=== PATIENT | male | born 1990 | race Caucasian/White ===

== ENCOUNTER 2016-04-27 10:18 | Inpatient (IN) | payer BC ==
[2016-04-27] VITALS (15 sets, daily range): BP systolic 120–160; BP diastolic 76–97; PULSE 86–137; RESP 16–24; TEMP 98.2–98.8; O2SAT 94–99
[~2016-04-27] VITALS: Ht 182.9 cm; Wt 80.5 kg
[2016-04-27 10:28] LABS: MEAN CORPUSCULAR HGB CONC 36.1 % (32.0-36.0)
[2016-04-27] MEDS ORDERED: SODIUM CHLOR 0.9% 1000 ML INJ 1,000 ML IV ONE (10:30)
[2016-04-27] MEDS ORDERED: MORPHINE SULFATE 4 MG/ML INJ IV PUSH ONE (10:30)
[2016-04-27] MEDS ORDERED: ONDANSETRON HCL 4 MG/2 ML VIAL IV PUSH ONE (10:30)
--- NOTE | 2016-04-27 10:33 | PD ---
HPI Chief Complaint: Chest Pain Time Seen by Provider: 10:22 Travel History International Travel<30 days: No Contact w/Intl Traveler<30days: No Traveled to known affect area: No History of Present Illness HPI 26-year-old male complains of nausea vomiting abdominal cramping chest pain and hemoptysis. Patient states that he started having intermittent nausea vomiting for the past 4 days. Patient started having substernal chest pain since last night. Patient states the pain is sharp pain localized to the substernal area. Patient denies any pain radiation. Patient states that the pain is worse with deep inspiration. Patient denies any palpitation diaphoresis. Patient denies any fever chills. Patient states that he has mild intermittent cough with blood-tinged sputum. Patient denies any history of CAD or pulmonary problem. Patient denies history hypertension, diabetes, dyslipidemia. Patient smokes pot occasionally. Patient denies any other illicit drug use or alcohol abuse. Patient denies any recent injury. On a scale of 1-10 the pain is an 8. Patient states that he has occasional abdominal cramping with vomiting. PFSH Past Medical History Medical History: Denies Significant Hx Diminished Hearing: No Tetanus Vaccination: Unknown Influenza Vaccination: No Social History Alcohol Use: Yes Tobacco Use: Yes Substance Use: No Allergies-Medications (Allergen,Severity, Reaction): Coded Allergies: No Known Allergies (Unverified , 04/27/16) Reported Meds & Prescriptions Reported Meds & Active Scripts Active No Active Prescriptions or Reported Medications Review of Systems General / Constitutional: No: Fever Eyes: No: Visual changes HENT: No: Headaches Cardiovascular: Positive: Chest Pain or Discomfort Respiratory: Positive: Cough, Hemoptysis, No: Shortness of Breath Gastrointestinal: No: Abdominal Pain Genitourinary: No: Dysuria Musculoskeletal: No: Pain Skin: No Rash Neurologic: No: Weakness Psychiatric: No: Depression Endocrine: No: Polydipsia Hematologic/Lymphatic: No: Easy Bruising Physical Exam Narrative GENERAL: Well-nourished, well-developed patient. SKIN: Warm and dry. HEAD: Normocephalic. EYES: No scleral icterus. No injection or drainage. NECK: Supple, trachea midline. No JVD or lymphadenopathy. CARDIOVASCULAR: Regular rate and rhythm without murmurs, gallops, or rubs. RESPIRATORY: Breath sounds equal bilaterally. No accessory muscle use. GASTROINTESTINAL: Abdomen soft, nondistended. Patient has mild diffuse tenderness over the abdomen. No rebound tenderness. No mass. MUSCULOSKELETAL: No cyanosis, or edema. BACK: Nontender without obvious deformity. No CVA tenderness. Neurologic exam normal. Data Data Last Documented VS Vital Signs Date Time Temp Pulse Resp B/P Pulse Ox O2 Delivery O2 Flow Rate FiO2 04/27/16 12:30 94 20 124/88 98 Nasal Cannula 2 04/27/16 10:22 98.8 Orders Electrocardiogram (04/27/16 ) Complete Blood Count With Diff (04/27/16 10:22) Comprehensive Metabolic Panel (04/27/16 10:22) Creatine Kinase (Cpk) (04/27/16 10:22) Troponin I (04/27/16 10:22) Prothrombin Time / Inr (Pt) (04/27/16 10:22) Act Partial Throm Time (Ptt) (04/27/16 10:22) Lipase (04/27/16 10:22) Urinalysis - C+S If Indicated (04/27/16 10:22) Alcohol (Ethanol) (04/27/16 10:22) Drug Screen, Random Urine (04/27/16 10:22) Chest, Single Ap (04/27/16 10:22) Iv Access Insert/Monitor (04/27/16 10:22) Ecg Monitoring (04/27/16 10:22) Oxygen Administration (04/27/16 10:22) Oximetry (04/27/16 10:22) Sodium Chlor 0.9% 1000 Ml Inj (Ns 1000 M (04/27/16 10:30) Morphine Inj (Morphine Inj) (04/27/16 10:30) Ondansetron Inj (Zofran Inj) (04/27/16 10:30) Lorazepam Inj (Ativan Inj) (04/27/16 11:15) CKMB (04/27/16 10:30) CKMB% (04/27/16 10:30) D-Dimer (04/27/16 11:35) Ventilation & Perfusion Scan (04/27/16 11:35) Potassium Chlor 20 Meq Premix (Kcl 20 Me (04/27/16 12:15) Ns + Kcl 20 Meq Inj (Ns + Kcl 20 Meq Inj (04/27/16 12:15) Labs Laboratory Tests Test 04/27/16 10:30 White Blood Count 18.9 TH/MM3 Red Blood Count 5.84 MIL/MM3 Hemoglobin 17.0 GM/DL Hematocrit 47.1 % Mean Corpuscular Volume 80.8 FL Mean Corpuscular Hemoglobin 29.2 PG Mean Corpuscular Hemoglobin 36.1 % Concent Red Cell Distribution Width 12.9 % Platelet Count 251 TH/MM3 Mean Platelet Volume 9.7 FL Neutrophils (%) (Auto) 75.0 % Lymphocytes (%) (Auto) 10.3 % Monocytes (%) (Auto) 14.3 % Eosinophils (%) (Auto) 0.0 % Basophils (%) (Auto) 0.4 % Neutrophils # (Auto) 14.2 TH/MM3 Lymphocytes # (Auto) 1.9 TH/MM3 Monocytes # (Auto) 2.7 TH/MM3 Eosinophils # (Auto) 0.0 TH/MM3 Basophils # (Auto) 0.1 TH/MM3 CBC Comment AUTO DIFF Differential Comment AUTO DIFF CONFIRMED Prothrombin Time 11.6 SEC Prothromb Time International 1.0 RATIO Ratio Activated Partial 30.1 SEC Thromboplast Time D-Dimer Quantitative (PE/DVT) 1.57 MG/L FEU Sodium Level 127 MEQ/L Potassium Level 3.0 MEQ/L Chloride Level 85 MEQ/L Carbon Dioxide Level 20.7 MEQ/L Anion Gap 21 MEQ/L Blood Urea Nitrogen 40 MG/DL Creatinine 2.36 MG/DL Estimat Glomerular Filtration 34 ML/MIN Rate Random Glucose 136 MG/DL Calcium Level 9.6 MG/DL Total Bilirubin 2.1 MG/DL Aspartate Amino Transf 33 U/L (AST/SGOT) Alanine Aminotransferase 36 U/L (ALT/SGPT) Alkaline Phosphatase 75 U/L Total Creatine Kinase 455 U/L Creatine Kinase MB 0.9 NG/ML Creatine Kinase MB % 0.2 % Troponin I LESS THAN 0.02 NG/ML Total Protein 9.1 GM/DL Albumin 4.6 GM/DL Lipase 81 U/L Ethyl Alcohol Level LESS THAN 3 MG/DL MDM Medical Decision Making Medical Screen Exam Complete: Yes Emergency Medical Condition: Yes Interpretation(s) 10:32 AM. EKG shows sinus tachycardia rate 138. Nonspecific ST-T wave change. 12:08 PM. Last Impressions Chest X-Ray 04/27/16 1022 Signed Impressions: Service Date/Time: Wednesday, April 27, 2016 10:43 - CONCLUSION: No acute disease. Maico Melendez MD 12 08 PM. CBC WBC 18.9. 75 neutrophil. Sodium 127. Potassium 3.0. Chloride 85. Bicarbonate 20.7. Anion gap 21. BUN 40. Creatinine 2.36. Total bili 2.1. Total CK 455 with normal MB fraction. Troponin normal. Alcohol less than 3. D-dimer 1.57. 1409 PM. VQ scan shows low probability for PE. Differential Diagnosis Differential diagnosis including gastroenteritis, bronchitis, pneumonia, PE, pneumothorax, gastritis, PUD, pancreatitis, cholecystitis, colitis, UTI, pyelonephritis, nephrolithiasis. Narrative Course 26-year-old male with nausea vomiting, chest pain, hemoptysis, tachycardia. Normal saline solution 1 L IV bolus. Morphine 2 mg IV. Zofran 4 g IV. Ativan 1 mg IV. Normal saline solution with 20 mEq KCl per liter at 1 25 cc an hour. KCl 20 mEq IV given. Diagnosis Primary Impression: Chest pain Qualified Code: R07.9 - Chest pain, unspecified type Additional Impressions: Hyponatremia Hypokalemia Renal insufficiency Admitting Information Admitting Physician Requests: Admit Scripts No Active Prescriptions or Reported Meds Андрей Sewnson MD Apr 27, 2016 10:33
[2016-04-27 10:46] LABS: AUTOMATED NEUTROPHIL # 14.2 TH/MM3 (1.8-7.7); BASOPHIL # 0.1 TH/MM3 (0-0.2); BASOPHIL % 0.4 % (0.0-2.0); HEMATOCRIT 47.1 % (39.0-51.0); LYMPH % 10.3 % (9.0-44.0); LYMPHOCYTE # 1.9 TH/MM3 (1.0-4.8); MEAN CELL VOLUME 80.8 FL (80.0-100.0); MEAN CORPUSCULAR HEMOGLOBIN 29.2 PG (27.0-34.0); MONO % 14.3 % (0.0-8.0); PLATELET COUNT 251 TH/MM3 (150-450); RED BLOOD COUNT 5.84 MIL/MM3 (4.50-5.90); RED CELL DISTRIBUTION WIDTH 12.9 % (11.6-17.2); WHITE BLOOD COUNT 18.9 TH/MM3 (4.0-11.0)
[2016-04-27 10:52] LABS: HEMO FLAGS AUTO DIFF
[2016-04-27 11:00] LABS: APTT (PATIENT) 30.1 SEC (24.3-30.1); PROTHROMBIN TIME - PATIENT 11.6 SEC (9.8-11.6)
--- NOTE | 2016-04-27 11:01 | RADRPT ---
EXAM DATE/TIME: 04/27/2016 10:43 [facility] COMPARISON: No previous studies available for comparison. INDICATIONS : Chest pain. MEDICAL HISTORY : None. SURGICAL HISTORY : None. ENCOUNTER: Initial ACUITY: 2 days PAIN SCORE: 10/10 LOCATION: Chest, midline. FINDINGS: A single view of the chest demonstrates the lungs to be symmetrically aerated without evidence of mas s, infiltrate or effusion. The cardiomediastinal contours are unremarkable. Osseous structures are intact. CONCLUSION: No acute disease. Maico Melendez MD on April 27, 2016 at 10:59 Board Certified Radiologist. This report was verified electronically.
[2016-04-27 11:05] LABS: ANION GAP 21 MEQ/L (5-15)
[2016-04-27 11:09] LABS: ALKALINE PHOSPHATASE 75 U/L (45-117); ALT (GPT) 36 U/L (12-78); AST (GOT) 33 U/L (15-37); BICARBONATE 20.7 MEQ/L (21.0-32.0); BLOOD UREA NITROGEN 40 MG/DL (7-18); CHLORIDE 85 MEQ/L (98-107); CREATINE KINASE 455 U/L (39-308); GLOMERULAR FILTRATION RATE 34 ML/MIN (>89); SODIUM (NA) 127 MEQ/L (136-145); TOTAL BILIRUBIN ADULT 2.1 MG/DL (0.2-1.0)
[2016-04-27] MEDS ORDERED: LORazepam 2 MG/ML VIAL IV PUSH ONE (11:15)
[2016-04-27 11:35] LABS: CKMB 0.9 NG/ML (0.5-3.6)
[2016-04-27 12:05] LABS: SCAN/DIFF AUTO DIFF CONFIRMED
[2016-04-27] MEDS ORDERED: POTASSIUM CHLOR 20 MEQ PREMIX 100 ML IV ONE (12:15)
[2016-04-27] MEDS: NS + KCL 20 MEQ INJ 1,000 ML IV SCH ×3 (12:19→23:35)
--- NOTE | 2016-04-27 13:46 | RADRPT ---
EXAM DATE/TIME: 04/27/2016 13:15 [facility] COMPARISON: No previous studies available for comparison. INDICATIONS : Dyspnea with nausea and vomiting and chest pain. DOSE: 8.5 mCi Tc99m MAA IV 1.0 mCi Tc99m DTPA aerosol MEDICAL HISTORY : None SURGICAL HISTORY : None. ENCOUNTER: Initial ACUITY: 1 day PAIN SCALE: 0/10 LOCATION: chest TECHNIQUE: Following five minutes of tidal breathing of DTPA aerosol, planar images of the lungs were performed in eight projections. The patient was then injected with MAA, and eight-view perfusion scan was perf ormed. FINDINGS: There is a homogeneous pattern of aerosol delivery to the periphery of both lungs. No focal ventilat ory defects are seen. The perfusion lung scan demonstrates a homogenous pattern of uptake in both lungs. No segmental or s ubsegmental defects are seen. CONCLUSION: Low probability for pulmonary embolism. aMico Melendez MD on April 27, 2016 at 13:44 Board Certified Radiologist. This report was verified electronically.
[2016-04-27] MEDS ORDERED: SODIUM CHLOR 0.9% 1000 ML INJ 1,000 ML IV SCH (14:54)
--- NOTE | 2016-04-27 14:55 | HHI.HP ---
HPI Service Family Medicine Primary Care Physician No Primary Care Physician Admission Diagnosis chest pain. Electrolyte abnormality. Renal insufficiency. Diagnoses: International Travel<30 Days: No Contact w/Intl Traveler<30days: No Known Affected Area: No History of Present Illness Pt is a 26 year old male with no significant past medical history presenting to the ED due to chest pain. Pt reports that he has had nausea and vomiting for the past 4 days and he has not been able to tolerate anything po for the past 2 days. Vomit is dark in color, he is unsure if it contained any blood. He also reports several episodes of diarrhea. Last night, after vomiting, her began to experience, burning, substernal chest pain, 10/10 in intensity. He reports that pain radiates to the epigastrium, no radiation to his arms or shoulders. Pain is relieved by drinking cold water and made worse by deep inspiration, drinking tea, coughing, vomiting. He continues to have this pain, but less frequently. Pain medication in the ED only partially helped. Pain was associated with shortness of breath which started last night and persisted into this morning. He describes having a difficult time "getting air into his lungs". He reports that he fell down once last night, does not believe he lost consciousness, did not hit his head or sustain any injuries. Of not pt is a poor historian and has a difficult time recalling details associated with his symptoms and becomes easily frustrated with answering questions. He denies sick contacts, recent travel, trauma, insect bites. ( Ayo Collins MD R2) Review of Systems ROS Limitations: Poor Historian Eyes: DENIES: Vision loss Ears, nose, mouth, throat: COMPLAINS OF: Throat pain (from vomiting) Respiratory: COMPLAINS OF: Shortness of breath Cardiovascular: COMPLAINS OF: Chest pain, Palpitations Gastrointestinal: COMPLAINS OF: Abdominal pain, Diarrhea, Nausea, Vomiting, DENIES: Constipation Genitourinary: DENIES: Dysuria Musculoskeletal: DENIES: Back pain, Neck pain Integumentary: DENIES: Rash Neurologic: DENIES: Headache Psychiatric: DENIES: Anxiety, Mood changes (Ayo Collins MD R2) Past Family Social History Past Medical History None Past Surgical History Right knee surgery due to meniscus tear Reported Medications Denies any medications or supplements (Ayo Collins MD R2) Allergies: Coded Allergies: No Known Allergies (Unverified , 04/27/16) Active Ordered Medications Inpatient Medications Acetaminophen (Tylenol) 650 mg Q4H PRN PO TEMP>100.4F,PAIN1-10,IRRITABLE; Start 04/27/16 at 15:00 IV Flush (NS Flush) 2 ml BID FLUSH ; Start 04/27/16 at 21:00 Lorazepam 1 mg 1 mg ONCE ONCE IV PUSH Last administered on 04/27/16 11:11; Start 04/27/16 at 11:15; Stop 04/27/16 at 11:16; Status DC Morphine Sulfate (Morphine Inj) 4 mg Q3H PRN IV PUSH BREAKTHROUGH PAIN; Start 04/27/16 at 15:45 Naloxone HCl (Narcan Inj) 0.4 mg UNSCH PRN IV SEE LABEL COMMENTS; Start at 15:00 Ondansetron HCl (Zofran Inj) 4 mg Q6H PRN IVP NAUSEA OR VOMITING; Start at 15:00 Potassium Chloride/Sodium Chloride 1,000 ml @ 125 mls/hr Q8H IV Last administered on 04/27/16 12:19; Start 04/27/16 at 12:15 Potassium Chloride 100 ml @ 50 mls/hr BOLUS ONCE IV Last administered on 12:19; Start 04/27/16 at 12:15; Stop 04/27/16 at 14:14; Status DC Sodium Chloride (NS 1000 ml Inj) 1,000 ml @ 100 mls/hr Q10H IV Last administered on 04/27/16 15:21; Start 04/27/16 at 14:54 Family History Mother: from a car accident Father: Estranged Siblings: Healthy Social History Currently lives with girl friend Smokes 1 PPD for 5 years Occasional alcohol use Marijuana, unable to specify quantity (Ayo Collins MD R2) Physical Exam Vital Signs Vital Signs Date Time Temp Pulse Resp B/P Pulse Ox O2 Delivery O2 Flow Rate FiO2 04/27/16 14:30 94 18 140/85 97 Room Air 2 04/27/16 14:00 90 17 126/86 98 Nasal Cannula 2 04/27/16 13:00 90 20 160/93 98 Nasal Cannula 2 04/27/16 12:30 94 20 124/88 98 Nasal Cannula 2 04/27/16 12:00 92 17 130/79 97 Nasal Cannula 2 04/27/16 11:30 92 17 135/79 94 Nasal Cannula 2 04/27/16 11:00 102 16 155/86 99 Nasal Cannula 2 04/27/16 10:46 20 04/27/16 10:39 114 20 144/76 98 Nasal Cannula 2 04/27/16 10:26 137 24 98 Nasal Cannula 2 04/27/16 10:22 98.8 137 24 132/85 98 04/27/16 10:20 24 97 Room Air 04/27/16 10:20 97 Nasal Cannula 2 Physical Exam GENERAL: This is a well-nourished, well-developed patient, who appears to be experiencing severe pain. While answering questions he is completely distracted from his pain. SKIN: No rashes, ecchymoses or lesions. Patient with multiple tattoos. No track garcia or splinter hemorrhages. Warm and dry. HEAD: Atraumatic. Normocephalic. No temporal or scalp tenderness. EYES: Pupils equal round and reactive. Extraocular motions intact. No scleral icterus. No injection or drainage. ENT: Nose without bleeding, purulent drainage or septal hematoma. Throat without erythema, tonsillar hypertrophy or exudate. Uvula midline. Airway patent. Poor dentition. NECK: Trachea midline. No JVD or lymphadenopathy. Supple, nontender, no meningeal signs. CARDIOVASCULAR: Tachycardic rate rate and rhythm without murmurs, gallops, or rubs. CHEST: Chest pain is reproduced with palpation of the sternum and epigastric area RESPIRATORY: Clear to auscultation. Breath sounds equal bilaterally. No wheezes , rales, or rhonchi. GASTROINTESTINAL: Abdomen soft, non-tender, nondistended. No hepato-splenomegaly , or palpable masses. No guarding. Hyperactive bowel sounds. MUSCULOSKELETAL: Extremities without clubbing, cyanosis, or edema. No joint tenderness, effusion, or edema noted. No calf tenderness. Negative Homans sign bilaterally. NEUROLOGICAL: Awake and alert. Cranial nerves II through XII intact. Motor and sensory grossly within normal limits. Five out of 5 muscle strength in all muscle groups. Normal speech. Laboratory Laboratory Tests Test 04/27/16 10:30 White Blood Count 18.9 Red Blood Count 5.84 Hemoglobin 17.0 Hematocrit 47.1 Mean Corpuscular Volume 80.8 Mean Corpuscular Hemoglobin 29.2 Mean Corpuscular Hemoglobin 36.1 Concent Red Cell Distribution Width 12.9 Platelet Count 251 Mean Platelet Volume 9.7 Neutrophils (%) (Auto) 75.0 Lymphocytes (%) (Auto) 10.3 Monocytes (%) (Auto) 14.3 Eosinophils (%) (Auto) 0.0 Basophils (%) (Auto) 0.4 Neutrophils # (Auto) 14.2 Lymphocytes # (Auto) 1.9 Monocytes # (Auto) 2.7 Eosinophils # (Auto) 0.0 Basophils # (Auto) 0.1 CBC Comment AUTO DIFF Differential Comment AUTO DIFF CONFIRMED Prothrombin Time 11.6 Prothromb Time International 1.0 Ratio Activated Partial 30.1 Thromboplast Time D-Dimer Quantitative (PE/DVT) 1.57 Sodium Level 127 Potassium Level 3.0 Chloride Level 85 Carbon Dioxide Level 20.7 Anion Gap 21 Blood Urea Nitrogen 40 Creatinine 2.36 Estimat Glomerular Filtration 34 Rate Random Glucose 136 Calcium Level 9.6 Total Bilirubin 2.1 Aspartate Amino Transf 33 (AST/SGOT) Alanine Aminotransferase 36 (ALT/SGPT) Alkaline Phosphatase 75 Total Creatine Kinase 455 Creatine Kinase MB 0.9 Creatine Kinase MB % 0.2 Troponin I LESS THAN 0.02 Total Protein 9.1 Albumin 4.6 Lipase 81 Ethyl Alcohol Level LESS THAN 3 (Ayo Collins MD R2) Result Diagram: 04/27/16 1030 04/27/16 1030 Imaging Last 24 hours Impressions Lung Scan-VQ Nuclear Medicine 04/27/16 1135 Signed Impressions: Service Date/Time: Wednesday, April 27, 2016 13:15 - CONCLUSION: Low probability for pulmonary embolism. Maico Melendez MD Chest X-Ray 04/27/16 1022 Signed Impressions: Service Date/Time: Wednesday, April 27, 2016 10:43 - CONCLUSION: No acute disease. Maico Melendez MD (Ayo Collins MD R2) Assessment and Plan Assessment and Plan Pt is a 26 year old male with no significant past medical history presenting to the ED due to chest pain. Will rule out ACS as well as intoxication vs withdrawal. Code Status Full Discussed Condition With sdw Dr. Mejia (Ayo Collins MD R2) Attending Attestation THIS CASE WAS DISCUSSED WITH THE RESIDENT PHYSICIANS. I HAVE REVIEWED THE RECORD AND AGREE WITH THE ABOVE NOTE AND PLAN OF CARE WAS DISCUSSED. I HAVE AUTHORIZED THE ORDER FOR ADMISSION TO AN IN-PATIENT STATUS. (Izaiah Erazo MD) Problem List: (1) Chest pain Status: Acute Plan: Pt presents with substernal chest pain associated with SOB. Pain began after several days of vomiting and is reproducible on exam. Differnetial includes musculoskeletal pain/costochondritis versus [place] versus arrhythmia versus illicit substance use -Will rule out ACS -Initial troponin less than 0.02, CK-MB 0.9 -EKG showing sinus tachycardia -D-dimer elevated to 1.57 -VQ scan performed due to poor renal function, low probability for pulmonary embolism -Echocardiogram ordered by ED physician -UDS ordered (2) CHIDI (acute kidney injury) Status: Acute Plan: On admission patient with creatinine of 2.36. Denies history of kidney disease. Pt with decreased urine output, likely due to dehydration. Differential includes dehydration vs medication vs illicit substance use vs obstructive process vs others. -Rehydration, see fluids below -Renal US within normal limits, incidental gallbladder sludge noted -UDS ordered -Continue to monitor -Consider nephrology consult if creatinine does not improve with fluid hydration (3) Hyponatremia Status: Acute Plan: Sodium low at 127, likely due to dehydration and poor nutritional status -Replacement fluids with normal saline -Will check ADH -Continue to monitor (4) Hypokalemia Status: Acute Plan: Potassium low at 3.0 -Fluids with KCl, see below -Will recheck in the morning -Consider additional dose of PO potassium if this remains low (5) Leukocytosis Status: Resolved Plan: Patient with elevated white blood cell count of 18.9. No obvious source of infection. Patient has been afebrile. -Chest x-ray shows no acute disease -UA ordered -Continue to monitor for signs of infection (6) FEN/PPX Status: Acute Plan: Fluids: Normal saline with KCl at 125 MLS/HR Electrolytes: See above Nutrition: Regular diet DVT PPX: Heparin 5000 units Q8hrs (Ayo Collins MD R2) Physician Certification 2 Midnight Certification Type: Admission for Inpatient Services Order for Inpatient Services The services are ordered in accordance with Medicare regulations or non- Medicare payer requirements, as applicable. In the case of services not specified as inpatient-only, they are appropriately provided as inpatient services in accordance with the 2-midnight benchmark. Estimated LOS (days): 2 2 days is the estimated time the patient will need to remain in the hospital, assuming treatment plan goals are met and no additional complications. Post-Hospital Plan: Home (Ayo Collins MD R2) Problem Qualifiers (1) Chest pain: Qualified Code: R07.9 - Chest pain, unspecified type Ayo Collins MD R2 Apr 27, 2016 14:55 Izaiah Erazo MD Apr 28, 2016 12:27
[2016-04-27] MEDS ORDERED: SODIUM CHLORIDE 0.9% FLUSH 5 ML FLUSH FLUSH PRN (15:00)
[2016-04-27] MEDS ORDERED: NALOXONE HCL 0.4 MG/ML AMP IV PRN (15:00)
[2016-04-27] MEDS ORDERED: ACETAMINOPHEN 325 MG TAB PO PRN (15:00)
[2016-04-27] MEDS ORDERED: ONDANSETRON HCL 4 MG/2 ML VIAL IVP PRN (15:00)
[2016-04-27] MEDS ORDERED: ALPRAZolam 0.25 MG TAB PO PRN (15:45)
[2016-04-27] MEDS: MORPHINE SULFATE 4 MG/ML INJ IV PUSH PRN ×2 (16:01→21:21)
[2016-04-27] MEDS ORDERED: NICOTINE 14 MG/24 HR PATCH TD ONE (17:30)
[2016-04-27] MEDS: ACETAMINOPHEN/HYDROcodone 325 MG/10 MG TAB PO PRN (17:32)
[2016-04-27 17:34] LABS: CREATINE KINASE 365 U/L (39-308)
--- NOTE | 2016-04-27 18:26 | RADRPT ---
EXAM DATE/TIME: 04/27/2016 17:52 [facility] COMPARISON: No previous studies available for comparison. INDICATIONS : Abnormal labs. MEDICAL HISTORY : Abdominal pain. Sore throat. Dyspnea. SURGICAL HISTORY : Right knee surgery. ENCOUNTER: Initial ACUITY: 3 days PAIN SCORE: 0/10 LOCATION: Bilateral flank MEASUREMENTS: RIGHT KIDNEY: 11.2 x 4.5 x 6.6 cm LEFT KIDNEY: 10.7 x 5.6 x 4.4 cm FINDINGS: RIGHT KIDNEY: Renal cortex is normal in thickness and echotexture. No hydronephrosis, stone, or mass. LEFT KIDNEY: Renal cortex is normal in thickness and echotexture. No hydronephrosis, stone, or mass. BLADDER: Within normal limits given the degree of distension. CONCLUSION: 1. Unremarkable renal ultrasound. Incidental note made of gallbladder sludge. Rubin Aden MD on April 27, 2016 at 18:24 Board Certified Radiologist. This report was verified electronically.
[2016-04-27] MEDS: ACETAMINOPHEN/HYDROcodone 325 MG/5 MG TAB PO PRN ×2 (18:38→23:34)
[2016-04-27] MEDS: SODIUM CHLORIDE 0.9% FLUSH 5 ML FLUSH FLUSH SCH (21:00)
[2016-04-27] MEDS: HEPARIN SODIUM - SQ 10,000 UNITS/ML VIAL SQ SCH (21:24)
[2016-04-27] MEDS ORDERED: cloNIDine HCL 0.1 MG TAB PO PRN (22:00)
[2016-04-28] VITALS (7 sets, daily range): BP systolic 113–136; BP diastolic 63–86; PULSE 76–98; RESP 16–20; TEMP 96.4–98.7; O2SAT 94–100
[2016-04-28 00:03] LABS: BLOOD, URINE NEG (NEG); GLUCOSE,URINE NEG (NEG); KETONE, URINE TRACE mg/dL (NEG); NITRITE,URINE NEG (NEG); SQUAMOUS EPITHELIAL CELL URINE <1 /hpf (0-5); URINE COLOR YELLOW (YELLW/STRAW)
[2016-04-28 00:04] LABS: COMMENT (UR) CULT NOT INDICATED; CULTURE IF INDICATED CULT NOT INDICATED
[2016-04-28 00:08] LABS: CREATINE KINASE 356 U/L (39-308); MAGNESIUM 2.8 MG/DL (1.5-2.5)
[2016-04-28 00:11] LABS: AMPHETAMINE, URINE NEG (NEG); BARBITURATES, URINE NEG (NEG); COCAINE, URINE NEG (NEG)
[2016-04-28] MEDS: MORPHINE SULFATE 4 MG/ML INJ IV PUSH PRN ×6 (03:58→23:52)
[2016-04-28] MEDS: NS + KCL 20 MEQ INJ 1,000 ML IV SCH ×3 (06:15→22:15)
[2016-04-28] MEDS: HEPARIN SODIUM - SQ 10,000 UNITS/ML VIAL SQ SCH ×3 (06:19→20:50)
[2016-04-28] MEDS: ACETAMINOPHEN/HYDROcodone 325 MG/10 MG TAB PO PRN ×5 (06:21→23:35)
[2016-04-28] MEDS: SODIUM CHLORIDE 0.9% FLUSH 5 ML FLUSH FLUSH SCH ×2 (09:00→20:47)
[2016-04-28 09:19] LABS: AUTOMATED NEUTROPHIL # 3.2 TH/MM3 (1.8-7.7); BASOPHIL % 0.3 % (0.0-2.0); EOSINOPHIL # 0.1 TH/MM3 (0-0.4); EOSINOPHIL % 1.2 % (0.0-4.0); HEMATOCRIT 38.4 % (39.0-51.0); HEMO FLAGS DIFF FINAL; LYMPH % 25.8 % (9.0-44.0); LYMPHOCYTE # 1.5 TH/MM3 (1.0-4.8); MEAN CELL VOLUME 83.1 FL (80.0-100.0); MEAN CORPUSCULAR HEMOGLOBIN 29.2 PG (27.0-34.0); MEAN CORPUSCULAR HGB CONC 35.1 % (32.0-36.0); MONO % 18.5 % (0.0-8.0); NEUT % 54.2 % (16.0-70.0); PLATELET COUNT 143 TH/MM3 (150-450); RED BLOOD COUNT 4.63 MIL/MM3 (4.50-5.90)
[2016-04-28 10:10] LABS: POTASSIUM 3.8 MEQ/L (3.5-5.1)
--- NOTE | 2016-04-28 11:50 | EKG ---
Date Performed: 04/27/2016 Time Performed: 16:07:22 PTAGE: 26 years EKG: JUNCTIONAL RHYTHM ABNORMAL RHYTHM ECG PREVIOUS TRACING : 04/27/2016 10.24 DOCTOR: Ramon Jacobson Interpretating Date/Time 04/28/2016 11:46:07
[2016-04-28] MEDS: PANTOPRAZOLE SODIUM 40 MG VIAL IV PUSH SCH (11:52)
--- NOTE | 2016-04-28 11:54 | EKG ---
Date Performed: 04/27/2016 Time Performed: 10:24:04 PTAGE: 26 years EKG: SINUS TACHYCARDIA MODERATE ST DEPRESSION ABNORMAL ECG INTERPRETATION BASED ON A DEFAULT AGE OF 41 YEARS NO PREVIOUS TRACING DOCTOR: Ramon Jacobson Interpretating Date/Time 04/28/2016 11:48:56
[2016-04-28] MEDS ORDERED: PROMETHAZINE HCL 25 MG SUPP PR PRN (12:00)
--- NOTE | 2016-04-28 12:27 | HHI.FPPN ---
Subjective Remarks Patient does not feel any better this morning. Continues to have significant amount of dry heaves/emesis as well as substernal chest discomfort. He has been getting Zofran throughout the night without any improvement in his nausea. He has been unable to hold down any liquids or food for longer than 1 hour before throwing up. He has not noticed any blood in his emesis. He denies any fevers or chills. He denies any palpitations. He denies any shortness of breath. He has been urinating and describes it as "dark yellow". Has not had a bowel movement yet in the hospital. In discussion with patient this morning, we tried to elucidate any other substance use and he does endorse daily use of marijuana since the age of 17 In summary this is a 26-year-old male with no past medical history presenting to the emergency department with 4 days of intractable nausea/vomiting and chest pain. He states that he has not been able to tolerate anything by mouth including liquids for the last 2 days. He describes his vomiting is dark in color but has not noticed any overt blood in his emesis. He began experiencing anterior chest discomfort that he describes as substernal and burning worse with retching and emesis. He denies any fevers or chills, he denies any palpitations, denies any significant shortness of breath. He denies any recent illnesses. Past Medical History None Past Surgical History Right knee surgery due to meniscus tear Reported Medications Denies any medications or supplements Family History Mother: from a car accident Father: Estranged Siblings: Healthy Social History Currently lives with girl friend Smokes 1 PPD for 5 years Occasional alcohol use Marijuana, unable to specify quantity Objective Vitals Vital Signs Date Time Temp Pulse Resp B/P Pulse Ox O2 Delivery O2 Flow Rate FiO2 04/28/16 07:25 96.6 83 20 119/68 97 04/28/16 07:20 18 04/28/16 04:05 18 04/28/16 04:00 97.1 84 18 125/79 100 04/28/16 00:34 18 04/28/16 00:00 96.4 82 16 113/63 94 04/27/16 21:26 18 04/27/16 21:00 98.2 98 18 126/83 99 04/27/16 18:27 101 18 134/88 98 Nasal Cannula 2 04/27/16 17:00 98 16 134/97 98 Nasal Cannula 2 04/27/16 16:00 92 16 120/80 98 Nasal Cannula 2 04/27/16 15:00 86 17 133/87 98 Nasal Cannula 04/27/16 14:30 94 18 140/85 97 Room Air 2 04/27/16 14:00 90 17 126/86 98 Nasal Cannula 2 04/27/16 13:00 90 20 160/93 98 Nasal Cannula 2 04/27/16 12:30 94 20 124/88 98 Nasal Cannula 2 I/O 04/27/16 04/27/16 04/27/16 04/28/16 04/28/16 04/28/16 07:00 15:00 23:00 07:00 15:00 23:00 Intake Total 1922 ml Output Total 1100 ml Balance 822 ml Intake Oral 480 ml IV Total 1442 ml Output Urine Total 1100 ml Result Diagram: 04/28/16 0902 04/28/16 0902 Imaging Last 48 hours Impressions Lung Scan- Nuclear Medicine 04/27/16 1135 Signed Impressions: Service Date/Time: Wednesday, April 27, 2016 13:15 - CONCLUSION: Low probability for pulmonary embolism. Maico Melendez MD Chest X-Ray 04/27/16 1022 Signed Impressions: Service Date/Time: Wednesday, April 27, 2016 10:43 - CONCLUSION: No acute disease. Maico Melendez MD Renal Ultrasound 04/27/16 0000 Signed Impressions: Service Date/Time: Wednesday, April 27, 2016 17:52 - CONCLUSION: 1. Unremarkable renal ultrasound. Incidental note made of gallbladder sludge. Rubin Aden MD Objective Remarks GENERAL: Healthy-appearing male, lying in bed. Dry heaves/retching multiple times during the interview SKIN: No rashes, ecchymoses or lesions. Patient with multiple tattoos. No track garcia or splinter hemorrhages. Warm and dry. EYES: Pupils equal round and reactive. No scleral icterus. No injection or drainage. CARDIOVASCULAR: Regular rate and rhythm without murmurs, gallops, or rubs. CHEST: Chest pain is reproduced with palpation of the anterior chest wall bilateral to the sternal RESPIRATORY: Clear to auscultation. Breath sounds equal bilaterally. No wheezes , rales, or rhonchi. GASTROINTESTINAL: Abdomen soft, non-tender, nondistended. No hepato-splenomegaly , or palpable masses. No guarding. Hyperactive bowel sounds. MUSCULOSKELETAL: Extremities without clubbing, cyanosis, or edema. NEUROLOGICAL: Awake and alert. Normal speech. Patient somewhat emotional during discussion A/P Assessment and Plan Pt is a 26 year old male with no significant past medical history presenting to the ED due to chest pain. Will rule out ACS as well as intoxication vs withdrawal. Problem List: (1) Intractable vomiting with nausea Status: Acute Plan: Cyclical vomiting versus cannabis hyperemesis versus peptic/duodenal ulcer Nausea treatment with Zofran 4 mg IV every 6 hours as needed for nausea Phenergan 25 mg rectal suppository added today PPI treatment with Protonix IV GI cocktail (2) Chest pain Status: Acute Plan: Substernal chest pain likely secondary to intractable vomiting Protonix 40 mg IV every 24 Morphine 2 mg IV every 3 hours as needed for pain IV fluids with normal saline at 125 mL/hour GI cocktail to relieve pain ACS rule out was performed and was negative - Troponins negative 3 with normal CK-MB - EKGs with no acute changes Chest x-ray performed and no acute cardiopulmonary findings D-dimer performed and was elevated at 1.57, subsequent VQ scan low probability for PE Pt presents with substernal chest pain associated with SOB. Pain began after several days of vomiting and is reproducible on exam. Differnetial includes musculoskeletal pain/costochondritis versus VT versus arrhythmia versus illicit substance use -Will rule out ACS -Initial troponin less than 0.02, CK-MB 0.9 -EKG showing sinus tachycardia -D-dimer elevated to 1.57 -VQ scan performed due to poor renal function, low probability for pulmonary embolism -Echocardiogram ordered by ED physician -UDS ordered (3) CHIDI (acute kidney injury) Status: Acute Plan: Secondary to dehydration and intractable vomiting Creatinine improving with IV fluids - Continue to monitor with labs, creatinine 2.36 - 1.31 Continue IV fluids with saline at 125 mL/hour Treat nausea as above Renal ultrasound within normal limits Urine drug screen pending (4) Hyponatremia Status: Acute Plan: Sodium corrected with IV fluids, 127 on arrival and now 137 -Will check ADH - pending -Continue to monitor (5) Hypokalemia Status: Acute Plan: Potassium low at 3.0 on arrival likely secondary to dehydration, repeat potassium 3.8 -Fluids with KCl - Monitor potassium daily and replete as needed (6) Leukocytosis Status: Resolved Plan: Likely related to stress Patient with elevated white blood cell count of 18.9 on arrival, normalized 6.0 today. No obvious source of infection. Patient has been afebrile. -Chest x-ray shows no acute disease -UA negative -Continue to monitor for signs of infection (7) FEN/PPX Status: Acute Plan: Fluids: Normal saline with KCl at 125 MLS/HR Electrolytes: See above Nutrition: Regular diet DVT PPX: Heparin 5000 units Q8hrs Problem Qualifiers (1) Chest pain: Qualified Code: R07.9 - Chest pain, unspecified type Izaiah Erazo MD Apr 28, 2016 12:27
--- NOTE | 2016-04-28 19:04 | EC ---
Study Study Date:04/28/2016 STUDY CONCLUSIONS SUMMARY LEFT VENTRICLE: The cavity size was normal. Wall thickness was normal. Systolic function was normal. The estimated ejection fraction was 50%, in the range of 50% to 55%. Wall motion was normal; there were no regional wall motion abnormalities. If LV function is below 40, please consider prescribing an ACEI or ARB or document rationale for non-use. PROCEDURE DATA STUDY STATUS: Elective. Procedure: Transthoracic echocardiography. Image quality was good. Scanning was performed from the parasternal, apical, and subcostal acoustic windows. Study completion: The patient tolerated the procedure well. Transthoracic echocardiography. M-mode, complete 2D, complete spectral Doppler, and color Doppler. Patient status: Inpatient. CARDIAC ANATOMY LEFT VENTRICLE: The cavity size was normal. Wall thickness was normal. Systolic function was normal. The estimated ejection fraction was 50%, in the range of 50% to 55%. Wall motion was normal; there were no regional wall motion abnormalities. AORTIC VALVE: Trileaflet; normal thickness leaflets. Doppler: Transvalvular velocity was within the normal range. There was no stenosis. No regurgitation. AORTA: Aortic root: The aortic root was normal in size. MITRAL VALVE: Structurally normal valve. Doppler: Transvalvular velocity was within the normal range. There was no evidence for stenosis. No regurgitation. Peak gradient: 2mm Hg (D). LEFT ATRIUM: The atrium was normal in size. RIGHT VENTRICLE: The cavity size was normal. Wall thickness was normal. PULMONIC VALVE: Doppler: Transvalvular velocity was within the normal range. There was no evidence for stenosis. Trace regurgitation. TRICUSPID VALVE: Structurally normal valve. Doppler: Transvalvular velocity was within the normal range. Trace regurgitation. PULMONARY ARTERY: The main pulmonary artery was normal-sized. Systolic pressure was within the normal range. RIGHT ATRIUM: The atrium was normal in size. PERICARDIUM: There was no pericardial effusion. SYSTEMIC VEINS: Inferior vena cava: The vessel was normal in size. BASIC MEASUREMENTS ADULT Normal Left ventricle LV internal dimension, ED, chordal level, *52.1 mm 43-52 PLAX LV internal dimension, ES, chordal level, *41 mm 23-38 PLAX Fractional shortening, chordal level, PLAX *21 % >29 LV posterior wall thickness, ED 7.35 mm IVS/LVPW ratio, ED 1.09 <1.3 Ventricular septum Septal thickness, ED 8.02 mm Aortic valve Leaflet separation 24 mm 15-26 Right ventricle RV internal dimension, ED, PLAX 25.6 mm 19-38 BASIC MEASUREMENTS ADULT Normal Aortic valve Leaflet separation 24 mm 15-26 Aorta Root diameter, ED 34 mm 20-37 Left atrium Anterior-posterior dimension, ES 36 mm 19-40 LA/aortic root ratio 1.06 DOPPLER MEASUREMENTS ADULT Normal Main pulmonary artery Pressure, S 26 mm Hg =30 Mitral valve Peak E-wave velocity 76.5 cm/s Peak A-wave velocity 42.9 cm/s Peak gradient, D 2 mm Hg Peak E/A ratio 1.8 Tricuspid valve Regurgitant peak velocity 184 cm/s Peak RV-RA gradient, S 14 mm Hg Maximal regurgitant velocity 184 cm/s Systemic veins Estimated CVP 5 mm Hg Right ventricle RV pressure, S 26 mm Hg <30 LEGEND: Mean values are shown as u=mean value. Asterisk (*) garcia values outside specified normal range. Prepared and signed by Kenji Zhao [id number]
[2016-04-28] MEDS: SODIUM BICARBONATE 650 MG TAB PO SCH (20:48)
[2016-04-28] MEDS: LIDOCAINE VISCOUS 2% SOLN 15 ML UDC PO PRN (20:50)
[2016-04-28] MEDS: ALUMINUM/MAGNESIUM/SIMETH 30 ML CUP PO PRN (20:50)
[2016-04-28] MEDS: ATROPINE/SCOPOLAM/HYOSCYAM/PB ELIXIR 10 ML CUP PO PRN (20:51)
[2016-04-29] MEDS: MORPHINE SULFATE 4 MG/ML INJ IV PUSH PRN ×3 (03:06→10:38)
[2016-04-29] MEDS: ACETAMINOPHEN/HYDROcodone 325 MG/10 MG TAB PO PRN ×3 (03:28→12:27)
[2016-04-29 04:00] VITALS: BP 111/57; PULSE 82; RESP 17; TEMP 97; O2SAT 96
[2016-04-29] MEDS: NS + KCL 20 MEQ INJ 1,000 ML IV SCH ×2 (04:43→12:30)
[2016-04-29] MEDS: HEPARIN SODIUM - SQ 10,000 UNITS/ML VIAL SQ SCH ×3 (04:43→20:11)
[2016-04-29 07:20] LABS: HEMATOCRIT 39.4 % (39.0-51.0); MEAN CELL VOLUME 82.8 FL (80.0-100.0); MEAN CORPUSCULAR HEMOGLOBIN 28.9 PG (27.0-34.0); MEAN CORPUSCULAR HGB CONC 34.9 % (32.0-36.0); PLATELET COUNT 154 TH/MM3 (150-450); RED BLOOD COUNT 4.75 MIL/MM3 (4.50-5.90); RED CELL DISTRIBUTION WIDTH 12.9 % (11.6-17.2); REVIEW FLAG FINAL; WHITE BLOOD COUNT 6.3 TH/MM3 (4.0-11.0)
[2016-04-29 08:00] VITALS: BP 119/86; PULSE 98; RESP 16; TEMP 97; O2SAT 98
[2016-04-29 08:18] LABS: BICARBONATE 27.5 MEQ/L (21.0-32.0); POTASSIUM 3.6 MEQ/L (3.5-5.1)
[2016-04-29] MEDS: SODIUM CHLORIDE 0.9% FLUSH 5 ML FLUSH FLUSH SCH ×2 (09:00→20:11)
--- NOTE | 2016-04-29 09:07 | HHI.FPPN ---
Subjective Remarks Pt seen and examined this morning. No acute events overnight. Pt reports that he is feeling less nauseated and the GI cocktail has been helping. 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 He continues to have have pain in his chest and upper abdomen. (Ayo Collins MD R2) Objective Vitals Vital Signs Date Time Temp Pulse Resp B/P Pulse Ox O2 Delivery O2 Flow Rate FiO2 04/29/16 04:00 97.0 82 17 111/57 96 04/28/16 23:30 97.7 76 16 114/77 96 04/28/16 20:00 98.7 98 18 130/74 96 04/28/16 15:00 97.4 82 20 125/67 96 04/28/16 11:50 96.7 83 20 136/86 98 I/O 04/28/16 04/28/16 04/28/16 04/29/16 04/29/16 04/29/16 06:59 14:59 22:59 06:59 14:59 22:59 Intake Total 1922 ml 120 ml 240 ml 480 ml Output Total 1100 ml 0 ml Balance 822 ml 120 ml 240 ml 480 ml Intake Oral 480 ml 120 ml 240 ml 480 ml IV Total 1442 ml Output Urine Total 1100 ml Stool Total 0 ml # Voids 1 1 2 (Ayo Collins MD R2) Result Diagram: 04/29/1659 04/29/16 0659 Objective Remarks GENERAL: Healthy-appearing male, lying in bed. SKIN: No rashes, ecchymoses or lesions. Patient with multiple tattoos. No track garcia or splinter hemorrhages. Warm and dry. EYES: Pupils equal round and reactive. No scleral icterus. No injection or drainage. CARDIOVASCULAR: Regular rate and rhythm without murmurs, gallops, or rubs. CHEST: Chest pain is reproduced with palpation of the anterior chest wall bilateral to the sternal RESPIRATORY: Clear to auscultation. Breath sounds equal bilaterally. No wheezes , rales, or rhonchi. GASTROINTESTINAL: Abdomen soft, non-tender, nondistended. No hepato-splenomegaly , or palpable masses. No guarding. Hyperactive bowel sounds. MUSCULOSKELETAL: Extremities without clubbing, cyanosis, or edema. NEUROLOGICAL: Awake and alert. Normal speech. Patient somewhat emotional during discussion (Ayo Collins MD R2) A/P Assessment and Plan Pt is a 26 year old male with no significant past medical history presenting to the ED due to chest pain. Will rule out ACS as well as intoxication vs withdrawal. Discharge Planning Anticipate discharge once patient is able to tolerate PO diet. Likely later today wdw Dr. Erazo (Ayo Collins MD R2) Attending Attestation Patient examined and case discussed with resident physician I have read the above note and agree with the assessment/plan as discussed with me I was involved in all medical decision making for this patient Izaiah Erazo M.D. (Izaiah Erazo MD) Problem List: (1) Intractable vomiting with nausea Status: Acute Plan: Cyclical vomiting versus cannabis hyperemesis versus peptic/duodenal ulcer Nausea treatment with Zofran 4 mg IV every 6 hours as needed for nausea Phenergan 25 mg rectal suppository x1 Protonix 40 mg IV Q24hrs GI cocktail: 30 mL's Mylanta, 10 mL's 2% viscous lidocaine, 10 mL's (2) Chest pain Status: Acute Plan: Substernal chest pain likely secondary to intractable vomiting Protonix 40 mg IV every 24 Morphine 2 mg IV every 3 hours as needed for pain IV fluids with normal saline at 125 mL/hour GI cocktail to relieve pain ACS rule out was performed and was negative - Troponins negative 3 with normal CK-MB - EKGs with no acute changes Chest x-ray performed and no acute cardiopulmonary findings D-dimer performed and was elevated at 1.57, subsequent VQ scan low probability for PE Pt presents with substernal chest pain associated with SOB. Pain began after several days of vomiting and is reproducible on exam. Differnetial includes musculoskeletal pain/costochondritis versus MS versus arrhythmia versus illicit substance use -Will rule out ACS -Initial troponin less than 0.02, CK-MB 0.9 -EKG showing sinus tachycardia -D-dimer elevated to 1.57 -VQ scan performed due to poor renal function, low probability for pulmonary embolism -Echocardiogram ordered by ED physician -UDS ordered (3) CHIDI (acute kidney injury) Status: Acute Plan: Resolved Creatinine improving with IV fluids - Continue to monitor with labs, creatinine 2.36 - 1.31- 1.12 See nausea and vomiting above Renal ultrasound within normal limits Urine drug screen positive for cannabinoids (4) Hyponatremia Status: Acute Plan: Sodium corrected with IV fluids, 127 on arrival and now 138 -Will check ADH - pending -Continue to monitor (5) Hypokalemia Status: Acute Plan: Potassium low at 3.0 on arrival likely secondary to dehydration, repeat potassium 3.8 -Fluids with KCl - Monitor potassium daily and replete as needed (6) Leukocytosis Status: Resolved Plan: Likely related to stress Patient with elevated white blood cell count of 18.9 on arrival, normalized, 6.3 today. No obvious source of infection. Patient has been afebrile. -Chest x-ray shows no acute disease -UA negative -Continue to monitor for signs of infection (7) FEN/PPX Status: Acute Plan: Fluids: Normal saline with KCl at 125 MLS/HR Electrolytes: See above Nutrition: Regular diet DVT PPX: Heparin 5000 units Q8hrs (Ayo Collins MD R2) Problem Qualifiers (1) Chest pain: Qualified Code: R07.9 - Chest pain, unspecified type Ayo Collins MD R2 Apr 29, 2016 09:06 Izaiah Erazo MD Apr 29, 2016 16:57
[2016-04-29] MEDS: LIDOCAINE VISCOUS 2% SOLN 15 ML UDC PO PRN ×2 (09:22→20:08)
[2016-04-29] MEDS: ATROPINE/SCOPOLAM/HYOSCYAM/PB ELIXIR 10 ML CUP PO PRN ×2 (09:22→20:07)
[2016-04-29] MEDS: ALUMINUM/MAGNESIUM/SIMETH 30 ML CUP PO PRN ×2 (09:22→20:07)
[2016-04-29] MEDS: SODIUM BICARBONATE 650 MG TAB PO SCH ×2 (09:22→20:07)
[2016-04-29] MEDS: PANTOPRAZOLE SODIUM 40 MG VIAL IV PUSH SCH (10:37)
[2016-04-29 12:00] VITALS: BP 144/96; PULSE 80; RESP 16; TEMP 98.3; O2SAT 99
[2016-04-29] MEDS ORDERED: KETOROLAC TROMETHAMINE 60 MG/2 ML (IM) VIAL IM PRN (15:15)
[2016-04-29 16:00] VITALS: BP 140/89; PULSE 75; RESP 16; TEMP 98; O2SAT 98
[2016-04-29] MEDS ORDERED: PROT40TA PO (16:48)
[2016-04-29] MEDS ORDERED: ZOFR4TAB PO (16:48)
[2016-04-29] MEDS ORDERED: LIDO1SOL8 PO (16:48)
[2016-04-29] MEDS ORDERED: KETO10 PO (16:48)
[2016-04-29] MEDS ORDERED: GI COCKTAIL PO (16:48)
--- NOTE | 2016-04-29 16:49 | HHI.DCPOC ---
Discharge Care Plan Diagnosis: (1) Renal insufficiency (2) Hypokalemia (3) Hyponatremia (4) Chest pain (5) CHIDI (acute kidney injury) (6) Leukocytosis (7) Intractable vomiting with nausea (8) Cannabinoid hyperemesis syndrome Goals to Promote Your Health * To prevent worsening of your condition and complications * To maintain your health at the optimal level Directions to Meet Your Goals Take your medications as prescribed Follow your dietary instruction Follow activity as directed Keep your appointments as scheduled Take your immunizations and boosters as scheduled If your symptoms worsen call your PCP, if no PCP go to Urgent Care Center or Emergency Room Smoking is Dangerous to Your Health. Avoid second hand smoke Call the 24-hour hour crisis hotline for domestic abuse at Ayo Collins MD R2 Apr 29, 2016 16:49
[2016-04-29] MEDS ORDERED: KETOROLAC TROMETHAMINE 10 MG TAB PO PRN (18:15)
[2016-04-29 20:00] VITALS: BP 130/76; PULSE 79; RESP 18; TEMP 98.7; O2SAT 98
[2016-04-30] VITALS: BP 130/80; PULSE 69; RESP 17; TEMP 98; O2SAT 96
[2016-04-30 04:00] VITALS: BP 149/80; PULSE 59; RESP 18; TEMP 97.7; O2SAT 97
[2016-04-30] MEDS: HEPARIN SODIUM - SQ 10,000 UNITS/ML VIAL SQ SCH ×2 (05:48→12:08)
[2016-04-30 08:00] VITALS: BP 118/78; PULSE 76; RESP 16; TEMP 97.2; O2SAT 98
[2016-04-30 08:39] LABS: HEMATOCRIT 41.5 % (39.0-51.0); MEAN CELL VOLUME 82.3 FL (80.0-100.0); MEAN CORPUSCULAR HEMOGLOBIN 29.4 PG (27.0-34.0); MEAN CORPUSCULAR HGB CONC 35.7 % (32.0-36.0); PLATELET COUNT 168 TH/MM3 (150-450); RED BLOOD COUNT 5.04 MIL/MM3 (4.50-5.90); RED CELL DISTRIBUTION WIDTH 13.2 % (11.6-17.2); REVIEW FLAG FINAL; WHITE BLOOD COUNT 5.7 TH/MM3 (4.0-11.0)
[2016-04-30 08:54] LABS: BICARBONATE 26.3 MEQ/L (21.0-32.0); POTASSIUM 3.7 MEQ/L (3.5-5.1)
--- NOTE | 2016-04-30 08:56 | HHI.FPPN ---
Subjective Remarks No acute events overnight. Afebrile vital signs stable overnight. Patient reports he is feeling better. He reports that his chest pain is mediocre, bearable, and that the pain depends on what he's eating. Patient reports that his stomach still gets tight with eating. He denies any diarrhea, vomiting. Patient reports that he held down dinner from last night without vomiting. Patient reports that he is holding liquids down without vomiting. Patient endorses good urine output. Patient feels comfortable going home today. (Luis F Mejia MD R1) Objective Vitals Vital Signs Date Time Temp Pulse Resp B/P Pulse Ox O2 Delivery O2 Flow Rate FiO2 04/30/16 08:00 97.2 76 16 118/78 98 04/30/16 04:00 97.7 59 18 149/80 97 04/30/16 00:00 98.0 69 17 130/80 96 04/29/16 20:00 98.7 79 18 130/76 98 04/29/16 16:00 98.0 75 16 140/89 98 04/29/16 12:00 98.3 80 16 144/96 99 I/O 04/29/16 04/29/16 04/29/16 04/30/16 04/30/16 04/30/16 07:00 15:00 23:00 07:00 15:00 23:00 Intake Total 480 ml 960 ml 480 ml 700 ml Balance 480 ml 960 ml 480 ml 700 ml Intake Oral 480 ml 960 ml 480 ml 700 ml # Voids 2 5 2 2 # Bowel Movements 0 (Luis F Mejia MD R1) Result Diagram: 04/29/1659 04/29/1659 Objective Remarks GENERAL: Healthy-appearing male, lying in bed, still uncomfortable but much improved. SKIN: No rashes, ecchymoses or lesions. Patient with multiple tattoos on upper extremity is bilaterally. No track garcia or splinter hemorrhages. Warm and dry. EYES: Pupils equal round and reactive. No scleral icterus. No injection or drainage. CARDIOVASCULAR: Regular rate and rhythm without murmurs, gallops, or rubs. CHEST: Chest pain is reproduced with palpation of the anterior chest wall lateral to the sternum RESPIRATORY: Clear to auscultation. Breath sounds equal bilaterally. No wheezes , rales, or rhonchi. GASTROINTESTINAL: Hypoactive bowel sounds. Abdomen soft, non-tender, nondistended. No guarding. MUSCULOSKELETAL: Extremities without clubbing, cyanosis, or edema. NEUROLOGICAL: Awake and alert. Normal speech. (Luis F Mejia MD R1) A/P Assessment and Plan Pt is a 26 year old male with no significant past medical history presenting to the ED due to chest pain. Will rule out ACS as well as intoxication vs withdrawal. Differential diagnosis includes gastroenteritis versus food poisoning versus cannabinoid hyperemesis syndrome versus cyclic vomiting syndrome versus abdominal migraine versus peptic/duodenal ulcer. Discharge Planning Anticipate discharge once patient is able to tolerate PO diet. Patient able to tolerate by mouth diet today. Anticipate discharge today. octaviano Erazo (Luis F Mejia MD R1) Attending Attestation Pt. examined and cased discussed with resident physician I have read the above note and agree with the assessment/plan as discussed with me I was involved in all medical decision making for this patient Izaiah Erazo MD (Izaiah Erazo MD) Problem List: (1) Intractable vomiting with nausea Status: Acute Plan: Cyclical vomiting versus cannabis hyperemesis versus peptic/duodenal ulcer. Patient reports that his pain seems to resolve while in the hot shower, and return when he gets out of the shower, which is consistent with cannabinoid hyperemesis syndrome. Nausea treatment with Zofran 4 mg IV every 6 hours as needed for nausea. We will discharge patient with by mouth form of this medication. Phenergan 25 mg rectal suppository x1 Protonix 40 mg IV Q24hrs. We will discharge patient with by mouth form this medication. GI cocktail: 30 mL's Mylanta, 10 mL's 2% viscous lidocaine, 10 mL's . We 'll discharge patient with this medication. (2) Chest pain Status: Acute Plan: Substernal chest pain likely secondary to intractable vomiting. Tenderness to palpation of the chest mcelroy consistent with musculoskeletal etiology of this chest pain. Medications: Protonix 40 mg IV every 24. We'll discharge patient with piriformis medication. Morphine 2 mg IV every 3 hours as needed for pain. We'll discharge patient with ketorolac 10 mg by mouth every 6 hours when necessary for pain. IV fluids with normal saline at 125 mL/hour. Patient now tolerating by mouth, no longer needing IV fluids. GI cocktail to relieve pain. We'll discharge patient with this medication. Workup thus far: Pt presented with substernal chest pain associated with SOB. Pain began after several days of vomiting and is reproducible on exam. Differential includes musculoskeletal pain/costochondritis versus [place] versus arrhythmia versus illicit substance use -Will rule out ACS -Initial troponin less than 0.02, CK-MB 0.9, Troponins negative 3 with normal CK-MB -EKG showing sinus tachycardia, EKGs show no acute changes -Chest x-ray performed and no acute cardiopulmonary findings -D-dimer elevated to 1.57 -VQ scan performed due to poor renal function, low probability for pulmonary embolism -Echocardiogram ordered by ED physician -UDS ordered (3) CHIDI (acute kidney injury) Status: Acute Plan: Resolved Creatinine improving with IV fluids. Discontinue IV fluids today upon discharge. - Continue to monitor with labs, creatinine 2.36 - 1.31- 1.12 - 0.98 today See nausea and vomiting above Renal ultrasound within normal limits Urine drug screen positive for cannabinoids (4) Hyponatremia Status: Acute Plan: Sodium corrected with IV fluids, 127 on arrival and now 137 -Will check ADH - pending -Continue to monitor (5) Hypokalemia Status: Acute Plan: Potassium low at 3.0 on arrival likely secondary to dehydration, repeat potassium 3.7 today - Fluids with KCl can be discontinued today upon discharge - Monitor potassium daily and replete as needed (6) Leukocytosis Status: Resolved Plan: Likely related to stress Patient with elevated white blood cell count of 18.9 on arrival, normalized, 5.7 today. No obvious source of infection. Patient has been afebrile. -Chest x-ray shows no acute disease -UA negative -Continue to monitor for signs of infection (7) FEN/PPX Status: Acute Plan: Fluids: Normal saline with KCl at 125 MLS/HR discontinued today with discharge Electrolytes: See above Nutrition: Regular diet DVT PPX: Heparin 5000 units Q8hrs (Luis F Mejia MD R1) Problem Qualifiers (1) Chest pain: Qualified Code: R07.9 - Chest pain, unspecified type Luis F Mejia MD R1 Apr 30, 2016 08:56 Izaiah Erazo MD Apr 30, 2016 20:23
[2016-04-30] MEDS: SODIUM BICARBONATE 650 MG TAB PO SCH (10:44)
[2016-04-30] MEDS: SODIUM CHLORIDE 0.9% FLUSH 5 ML FLUSH FLUSH SCH (10:46)
[2016-04-30] MEDS: PANTOPRAZOLE SODIUM 40 MG VIAL IV PUSH SCH (11:00)
[2016-04-30 12:00] VITALS: PULSE 78; TEMP 98.3; O2SAT 99
[2016-05-01 08:37] LABS: BATH SALTS (MDPV) UR NEG (NEG); ECSTASY (MDMA) UR NEG (NEG); HEROIN (6-ACETYLMORPHINE) UR NEG (NEG); K2 SPICE UR NEG (NEG); OBMETHADONE UR NEG (NEG); OXYCODONE (PERCODAN) NEG (NEG); PHENCYCLIDINE URINE NEG (NEG)
--- NOTE | 2016-06-09 15:32 | HHI.DS ---
Discharge Summary Admission Date Apr 27, 2016 at 16:41 Admitting Diagnosis chest pain. Electrolyte abnormality. Renal insufficiency. (1) Intractable vomiting with nausea Diagnosis: Principal Plan: Cyclical vomiting versus cannabis hyperemesis versus peptic/duodenal ulcer. Patient reports that his pain seems to resolve while in the hot shower, and return when he gets out of the shower, which is consistent with cannabinoid hyperemesis syndrome. Nausea treatment with Zofran 4 mg IV every 6 hours as needed for nausea. We will discharge patient with by mouth form of this medication. Phenergan 25 mg rectal suppository x1 Protonix 40 mg IV Q24hrs. We will discharge patient with by mouth form this medication. GI cocktail: 30 mL's Mylanta, 10 mL's 2% viscous lidocaine, 10 mL's . We 'll discharge patient with this medication. (2) Chest pain Diagnosis: Principal Plan: Substernal chest pain likely secondary to intractable vomiting. Tenderness to palpation of the chest mcelroy consistent with musculoskeletal etiology of this chest pain. Medications: Protonix 40 mg IV every 24. We'll discharge patient with piriformis medication. Morphine 2 mg IV every 3 hours as needed for pain. We'll discharge patient with ketorolac 10 mg by mouth every 6 hours when necessary for pain. IV fluids with normal saline at 125 mL/hour. Patient now tolerating by mouth, no longer needing IV fluids. GI cocktail to relieve pain. We'll discharge patient with this medication. Workup thus far: Pt presented with substernal chest pain associated with SOB. Pain began after several days of vomiting and is reproducible on exam. Differential includes musculoskeletal pain/costochondritis versus OR versus arrhythmia versus illicit substance use -Will rule out ACS -Initial troponin less than 0.02, CK-MB 0.9, Troponins negative 3 with normal CK-MB -EKG showing sinus tachycardia, EKGs show no acute changes -Chest x-ray performed and no acute cardiopulmonary findings -D-dimer elevated to 1.57 -VQ scan performed due to poor renal function, low probability for pulmonary embolism -Echocardiogram ordered by ED physician -UDS ordered (3) CHIDI (acute kidney injury) Diagnosis: Principal Plan: Resolved Creatinine improving with IV fluids. Discontinue IV fluids today upon discharge. - Continue to monitor with labs, creatinine 2.36 - 1.31- 1.12 - 0.98 today See nausea and vomiting above Renal ultrasound within normal limits Urine drug screen positive for cannabinoids (4) Hyponatremia Diagnosis: Principal Plan: Sodium corrected with IV fluids, 127 on arrival and now 137 -Will check ADH - pending -Continue to monitor (5) Hypokalemia Diagnosis: Principal Plan: Potassium low at 3.0 on arrival likely secondary to dehydration, repeat potassium 3.7 today - Fluids with KCl can be discontinued today upon discharge - Monitor potassium daily and replete as needed (6) Leukocytosis Diagnosis: Principal Plan: Likely related to stress Patient with elevated white blood cell count of 18.9 on arrival, normalized, 5.7 today. No obvious source of infection. Patient has been afebrile. -Chest x-ray shows no acute disease -UA negative -Continue to monitor for signs of infection (7) FEN/PPX Diagnosis: Secondary Plan: Fluids: Normal saline with KCl at 125 MLS/HR discontinued today with discharge Electrolytes: See above Nutrition: Regular diet DVT PPX: Heparin 5000 units Q8hrs Brief History Pt is a 26 year old male with no significant past medical history presenting to the ED due to chest pain. Pt reports that he has had nausea and vomiting for the past 4 days and he has not been able to tolerate anything po for the past 2 days. Vomit is dark in color, he is unsure if it contained any blood. He also reports several episodes of diarrhea. Last night, after vomiting, her began to experience, burning, substernal chest pain, 10/10 in intensity. He reports that pain radiates to the epigastrium, no radiation to his arms or shoulders. Pain is relieved by drinking cold water and made worse by deep inspiration, drinking tea, coughing, vomiting. He continues to have this pain, but less frequently. Pain medication in the ED only partially helped. Pain was associated with shortness of breath which started last night and persisted into this morning. He describes having a difficult time "getting air into his lungs". He reports that he fell down once last night, does not believe he lost consciousness, did not hit his head or sustain any injuries. Of not pt is a poor historian and has a difficult time recalling details associated with his symptoms and becomes easily frustrated with answering questions. He denies sick contacts, recent travel, trauma, insect bites. Imaging Last Impressions Lung Scan- Nuclear Medicine 04/27/16 1135 Signed Impressions: Service Date/Time: Wednesday, April 27, 2016 13:15 - CONCLUSION: Low probability for pulmonary embolism. Maico Melendez MD Chest X-Ray 04/27/16 1022 Signed Impressions: Service Date/Time: Wednesday, April 27, 2016 10:43 - CONCLUSION: No acute disease. Maico Melendez MD Renal Ultrasound 04/27/16 0000 Signed Impressions: Service Date/Time: Wednesday, April 27, 2016 17:52 - CONCLUSION: 1. Unremarkable renal ultrasound. Incidental note made of gallbladder sludge. Rubin Aden MD PE at Discharge GENERAL: Healthy-appearing male, lying in bed, still uncomfortable but much improved. SKIN: No rashes, ecchymoses or lesions. Patient with multiple tattoos on upper extremity is bilaterally. No track garcia or splinter hemorrhages. Warm and dry. EYES: Pupils equal round and reactive. No scleral icterus. No injection or drainage. CARDIOVASCULAR: Regular rate and rhythm without murmurs, gallops, or rubs. CHEST: Chest pain is reproduced with palpation of the anterior chest wall lateral to the sternum RESPIRATORY: Clear to auscultation. Breath sounds equal bilaterally. No wheezes , rales, or rhonchi. GASTROINTESTINAL: Hypoactive bowel sounds. Abdomen soft, non-tender, nondistended. No guarding. MUSCULOSKELETAL: Extremities without clubbing, cyanosis, or edema. NEUROLOGICAL: Awake and alert. Normal speech. Hospital Course The patient was admitted for workup of intractable nausea and vomiting, chest pain, CHIDI, electrolyte abnormalities. Patient had life-threatening causes of chest pain ruled out, treatment of his symptoms and electrolyte abnormalities, and IVF hydration and renal US wnl for his CHIDI, all of which seemed to resolve with time and treatment. Pt Condition on Discharge: Stable Discharge Disposition: Discharge Home Discharge Instructions DIET: Follow Instructions for: As Tolerated, No Restrictions Activities you can perform: Regular-No Restrictions Follow up Referrals: Gastroenterology - 1 Week PCP Follow-up - 1 Week New Medications: Ketorolac (Ketorolac) 10 Mg Tab 10 MG PO Q6HR PRN PAIN #16 Ref 0 TAB Ondansetron (Zofran) 4 Mg Tab 4 MG PO Q6HR PRN NAUSEA OR VOMITING #12 Ref 0 TAB Pantoprazole (Protonix) 40 Mg Tab 40 MG PO DAILY Reflux #20 Ref 0 TAB ([Gi cocktail]) 30 ML PO TID PRN UPSET STOMACH Days 7 Ref 0 BOTTLE Lidocaine Viscous Liq (Lidocaine Viscous Liq) 2 % Liqd 10 ML PO TID PRN UPSET STOMACH Days 7 ML Luis F Mejia MD R1 Jun 09, 2016 15:31
== END 2016-04-30 14:15 | disposition home or self-care (01) | DRG 897 ==
LOC: NEPA 10:18 → NEDA 16:41 → HOCA 20:35
PROVIDERS: ADMIT Family Medicine; ATTEND Family Medicine
DX: F12.988 Cannabis use, unspecified with other cannabis-induced disorder (principal); N17.9 Acute kidney failure, unspecified; G43.A1 Cyclical vomiting, in migraine, intractable; E87.1 Hypo-osmolality and hyponatremia; G44.89 Other headache syndrome; E86.0 Dehydration; R07.89 Other chest pain; F12.90 Cannabis use, unspecified, uncomplicated; E87.6 Hypokalemia; R19.7 Diarrhea, unspecified; F17.210 Nicotine dependence, cigarettes, uncomplicated; D72.829 Elevated white blood cell count, unspecified
CPT/HCPCS: 71010; 76775; 78582; 80048; 80053; 80307; 80320; 81001; 82550; 82552; 82570; 83690; 83735; 84100; 84133; 84300; 84484; 84588; 85025; 85027; 85379; 85610; 85730; 93005; 93306; 96360; 96361; 96365; 96366; 96375; 96376; A9540; A9567; C9113; G0481; J1644; J2060; J2270; J2405; J3480; J7030

== ENCOUNTER 2016-12-10 17:12 | Inpatient (IN) | payer BC ==
[~2016-12-10] VITALS: Ht 182.9 cm; Wt 89.8 kg
[~2016-12-10 17:12] MED LIST: GI COCKTAIL PO; KETO10 PO; LIDO1SOL8 PO; PROT40TA PO; ZOFR4TAB PO
[2016-12-10 17:27] VITALS: BP 113/67; PULSE 122; RESP 24; O2SAT 97
--- NOTE | 2016-12-10 17:42 | PD ---
Physical Exam Date Seen by Provider: Dec 10, 2016 Time Seen by Provider: 17:41 Narrative 26-year-old white male presents to emergency department via EMS with nausea vomiting 2 hours. The patient here in the ER is hyperventilating. Patient is having tingling in his face and hands. He feels dizzy and lightheaded as if he might pass out. He states that he feels short of breath. The patient was in his normal state of health prior. Patient was given 4 mg of Zofran IV by EMS. Vital signs reviewed. Awaiting bed placement Data Data Last Documented VS Vital Signs Date Time Temp Pulse Resp B/P (MAP) Pulse Ox O2 Delivery O2 Flow Rate FiO2 12/10/16 17:27 122 24 113/67 (82) 97 Room Air Orders Orders Diphenhydramine Inj (Benadryl Inj) (12/10/16 17:45) Metoclopramide Inj (Reglan Inj) (12/10/16 17:45) Complete Blood Count With Diff (12/10/16 17:45) Comprehensive Metabolic Panel (12/10/16 17:45) Lipase (12/10/16 17:45) Iv Access Insert/Monitor (12/10/16 17:45) Ecg Monitoring (12/10/16 17:45) Oximetry (12/10/16 17:45) Ondansetron Inj (Zofran Inj) (12/10/16 17:45) Sodium Chlor 0.9% 1000 Ml Inj (Ns 1000 M (12/10/16 17:45) Sodium Chloride 0.9% Flush (Ns Flush) (12/10/16 17:45) Lactic Acid (12/10/16 17:52) Influenzae A/B Antigen (12/10/16 17:52) Ketorolac Inj (Toradol Inj) (12/10/16 18:00) Labs Laboratory Tests Test 12/10/16 18:10 [facility] Medical Record Reviewed: No Supervised Visit with NEISHA: Rubin Jaime Dec 10, 2016 17:42
[2016-12-10] MEDS ORDERED: SODIUM CHLORIDE 0.9% FLUSH 10 ML FLUSH IVF PRN ×2 (17:45→19:15)
[2016-12-10] MEDS ORDERED: SODIUM CHLOR 0.9% 1000 ML INJ 1,000 ML IV ONE ×3 (17:45→19:45)
[2016-12-10] MEDS ORDERED: METOCLOPRAMIDE HCL 10 MG/2 ML VIAL IV PUSH ONE (17:45)
[2016-12-10] MEDS ORDERED: ONDANSETRON HCL 4 MG/2 ML VIAL IVP ONE (17:45)
[2016-12-10] MEDS ORDERED: diphenhydrAMINE HCL 50 MG/ML VIAL IV PUSH ONE (17:45)
[2016-12-10 17:50] VITALS: TEMP 100.9
[2016-12-10] MEDS ORDERED: KETOROLAC TROMETHAMINE 30 MG/ML (IVP) VIAL IV PUSH ONE (18:00)
[2016-12-10 18:20] VITALS: O2SAT 97
--- NOTE | 2016-12-10 18:21 | PD ---
HPI Chief Complaint: GI Complaint Time Seen by Provider: 17:45 Travel History International Travel<30 days: No Contact w/Intl Traveler<30days: No Traveled to known affect area: No History of Present Illness HPI Patient's 26-year-old male presenting to the emergency evaluation of shortness breath, nausea, vomiting. Patient states he started feeling sick yesterday with muscle aches. Today he has not been able to keep any food or fluids. He states for the last 3 hours he's felt short of breath and his chest hurts. He states his chest is painful to touch. He denies any diarrhea, headache, abdominal pain. Patient denies any significant past medical history. [facility] Past Medical History Medical History: Denies Significant Hx Cardiovascular Problems: No Diminished Hearing: No Musculoskeletal: No Neurologic: No Respiratory: No Social History Alcohol Use: Yes Tobacco Use: Yes Substance Use: No Allergies-Medications (Allergen,Severity, Reaction): Coded Allergies: No Known Allergies (Unverified , 04/27/16) Reported Meds & Prescriptions Reported Meds & Active Scripts Active No Active Prescriptions or Reported Medications Review of Systems Except as stated in HPI: all other systems reviewed are Neg General / Constitutional: Positive: Chills, No: Fever HENT: No: Headaches, Sore Throat, Neck Pain Cardiovascular: No: Chest Pain or Discomfort Respiratory: Positive: Cough, Shortness of Breath, Pleuritic Pain, No: Wheezing Gastrointestinal: Positive: Nausea, Vomiting, Loss of Appetite, No: Diarrhea, Abdominal Pain, Changes in Bowel Habits Genitourinary: No: Dysuria Musculoskeletal: Positive: Myalgias Neurologic: No: Weakness, Syncope Physical Exam Narrative GENERAL: Well developed, well-nourished, alert male. Appears uncomfortable, in no acute distress. SKIN: Warm and dry. HEAD: Atraumatic. Normocephalic. EYES: Pupils equal and round. No scleral icterus. No injection or drainage. ENT: No nasal bleeding or discharge. Mucous membranes pink and moist. NECK: Trachea midline. No JVD. CARDIOVASCULAR: Regular rate and rhythm. RESPIRATORY: No accessory muscle use. Clear to auscultation. Breath sounds equal bilaterally. GASTROINTESTINAL: Abdomen soft, non-tender, nondistended. Hepatic and splenic margins not palpable. MUSCULOSKELETAL: Extremities without clubbing, cyanosis, or edema. No obvious deformities. Tenderness to palpation on anterior chest wall. NEUROLOGICAL: Awake and alert. No obvious cranial nerve deficits. Motor grossly within normal limits. Five out of 5 muscle strength in the arms and legs. Normal speech. PSYCHIATRIC: Appropriate mood and affect; insight and judgment normal. Data Data Last Documented VS Vital Signs Date Time Temp Pulse Resp B/P (MAP) Pulse Ox O2 Delivery O2 Flow Rate FiO2 12/10/16 20:31 118 110/60 (77) 96 Room Air 12/10/16 19:15 24 12/10/16 17:50 100.9 Orders Orders Diphenhydramine Inj (Benadryl Inj) (12/10/16 17:45) Metoclopramide Inj (Reglan Inj) (12/10/16 17:45) Complete Blood Count With Diff (12/10/16 17:45) Comprehensive Metabolic Panel (12/10/16 17:45) Lipase (12/10/16 17:45) Iv Access Insert/Monitor (12/10/16 17:45) Ecg Monitoring (12/10/16 17:45) Oximetry (12/10/16 17:45) Ondansetron Inj (Zofran Inj) (12/10/16 17:45) Sodium Chlor 0.9% 1000 Ml Inj (Ns 1000 M (12/10/16 17:45) Sodium Chloride 0.9% Flush (Ns Flush) (12/10/16 17:45) Lactic Acid (12/10/16 17:52) Influenzae A/B Antigen (12/10/16 17:52) Ketorolac Inj (Toradol Inj) (12/10/16 18:00) Sodium Chlor 0.9% 1000 Ml Inj (Ns 1000 M (12/10/16 19:15) Urinalysis - C+S If Indicated (12/10/16 19:10) Group A Rapid Strep Screen (12/10/16 19:14) Sodium Chloride 0.9% Flush (Ns Flush) (12/10/16 19:15) Acetaminophen (Tylenol) (12/10/16 19:15) Chest, Single Ap (12/10/16 ) Ct Abd/Pel W Iv Contrast(Rout) (12/10/16 ) Sodium Chlor 0.9% 1000 Ml Inj (Ns 1000 M (12/10/16 19:45) Urine Culture (12/10/16 19:15) Vancomycin Inj (Vancomycin Inj) (12/10/16 19:46) Piperacil-Tazo 4.5 Gm Premix (Zosyn 4.5 (12/10/16 19:46) Creatine Kinase (Cpk) (12/10/16 18:10) Blood Culture (12/10/16 20:08) Iohexol 350 Inj (Omnipaque 350 Inj) (12/10/16 20:19) Strep Culture (Group A) (12/10/16 19:20) CKMB (12/10/16 18:10) CKMB% (12/10/16 18:10) Lactic Acid (12/10/16 20:51) Calcium Gluconate Inj (Calcium Gluconate (12/10/16 21:15) Admit Order (Ed Use Only) (12/10/16 21:08) Labs Laboratory Tests Test 12/10/16 18:10 12/10/16 19:15 12/10/16 21:03 White Blood Count 21.3 TH/MM3 Red Blood Count 4.93 MIL/MM3 Hemoglobin 13.9 GM/DL Hematocrit 40.3 % Mean Corpuscular Volume 81.8 FL Mean Corpuscular Hemoglobin 28.2 PG Mean Corpuscular Hemoglobin Concent 34.5 % Red Cell Distribution Width 13.4 % Platelet Count 218 TH/MM3 Mean Platelet Volume 9.2 FL Neutrophils (%) (Auto) 88.8 % Lymphocytes (%) (Auto) 3.9 % Monocytes (%) (Auto) 7.0 % Eosinophils (%) (Auto) 0.0 % Basophils (%) (Auto) 0.3 % Neutrophils # (Auto) 18.9 TH/MM3 Lymphocytes # (Auto) 0.8 TH/MM3 Monocytes # (Auto) 1.5 TH/MM3 Eosinophils # (Auto) 0.0 TH/MM3 Basophils # (Auto) 0.1 TH/MM3 CBC Comment DIFF FINAL Differential Comment Blood Urea Nitrogen 19 MG/DL Creatinine 1.75 MG/DL Random Glucose 117 MG/DL Total Protein 8.3 GM/DL Albumin 4.3 GM/DL Calcium Level 7.3 MG/DL Alkaline Phosphatase 79 U/L Aspartate Amino Transf (AST/SGOT) 41 U/L Alanine Aminotransferase (ALT/SGPT) 49 U/L Total Bilirubin 0.8 MG/DL Sodium Level 134 MEQ/L Potassium Level 3.5 MEQ/L Chloride Level 101 MEQ/L Carbon Dioxide Level 21.2 MEQ/L Anion Gap 12 MEQ/L Estimat Glomerular Filtration Rate 48 ML/MIN Lactic Acid Level 3.4 mmol/L 1.0 mmol/L Protein Corrected Calcium MG/DL Total Creatine Kinase 909 U/L Creatine Kinase MB 4.2 NG/ML Creatine Kinase MB % 0.5 % Lipase 64 U/L Urine Color YELLOW Urine Turbidity CLEAR Urine pH 7.0 Urine Specific [place] 1.014 Urine Protein 100 mg/dL Urine Glucose (UA) NEG mg/dL Urine Ketones TRACE mg/dL Urine Occult Blood MOD Urine Nitrite NEG Urine Bilirubin NEG Urine Urobilinogen LESS THAN 2.0 MG/DL Urine Leukocyte Esterase TRACE Urine RBC 1 /hpf Urine WBC 12 /hpf Urine Bacteria RARE /hpf Microscopic Urinalysis Comment CULTURE INDICATED MDM Medical Decision Making Medical Screen Exam Complete: Yes Emergency Medical Condition: Yes Medical Record Reviewed: Yes Interpretation(s) Last Impressions Chest X-Ray 12/10/16 0000 Signed Impressions: Service Date/Time: Saturday, December 10, 2016 19:21 - CONCLUSION: No acute disease. Daren Harmon MD Abdomen/Pelvis CT 12/10/16 0000 Signed Impressions: Service Date/Time: Saturday, December 10, 2016 20:10 - CONCLUSION: 1. Enlarged fatty liver. 2. Two tiny subcentimeter left renal cysts. Daren Harmon MD Vital Signs Date Time Temp Pulse Resp B/P (MAP) Pulse Ox O2 Delivery O2 Flow Rate FiO2 12/10/16 20:31 118 110/60 (77) 96 Room Air 12/10/16 19:15 120 24 123/65 (84) 97 Room Air 12/10/16 18:20 97 Room Air 12/10/16 17:50 100.9 12/10/16 17:27 122 24 113/67 (82) 97 Room Air Laboratory Tests Test 12/10/16 18:10 12/10/16 19:15 White Blood Count 21.3 TH/MM3 Red Blood Count 4.93 MIL/MM3 Hemoglobin 13.9 GM/DL Hematocrit 40.3 % Mean Corpuscular Volume 81.8 FL Mean Corpuscular Hemoglobin 28.2 PG Mean Corpuscular Hemoglobin Concent 34.5 % Red Cell Distribution Width 13.4 % Platelet Count 218 TH/MM3 Mean Platelet Volume 9.2 FL Neutrophils (%) (Auto) 88.8 % Lymphocytes (%) (Auto) 3.9 % Monocytes (%) (Auto) 7.0 % Eosinophils (%) (Auto) 0.0 % Basophils (%) (Auto) 0.3 % Neutrophils # (Auto) 18.9 TH/MM3 Lymphocytes # (Auto) 0.8 TH/MM3 Monocytes # (Auto) 1.5 TH/MM3 Eosinophils # (Auto) 0.0 TH/MM3 Basophils # (Auto) 0.1 TH/MM3 CBC Comment DIFF FINAL Differential Comment Blood Urea Nitrogen 19 MG/DL Creatinine 1.75 MG/DL Random Glucose 117 MG/DL Total Protein 8.3 GM/DL Albumin 4.3 GM/DL Calcium Level 7.3 MG/DL Alkaline Phosphatase 79 U/L Aspartate Amino Transf (AST/SGOT) 41 U/L Alanine Aminotransferase (ALT/SGPT) 49 U/L Total Bilirubin 0.8 MG/DL Sodium Level 134 MEQ/L Potassium Level 3.5 MEQ/L Chloride Level 101 MEQ/L Carbon Dioxide Level 21.2 MEQ/L Anion Gap 12 MEQ/L Estimat Glomerular Filtration Rate 48 ML/MIN Lactic Acid Level 3.4 mmol/L Protein Corrected Calcium MG/DL Total Creatine Kinase 909 U/L Lipase 64 U/L Urine Color YELLOW Urine Turbidity CLEAR Urine pH 7.0 Urine Specific [place] 1.014 Urine Protein 100 mg/dL Urine Glucose (UA) NEG mg/dL Urine Ketones TRACE mg/dL Urine Occult Blood MOD Urine Nitrite NEG Urine Bilirubin NEG Urine Urobilinogen LESS THAN 2.0 MG/DL Urine Leukocyte Esterase TRACE Urine RBC 1 /hpf Urine WBC 12 /hpf Urine Bacteria RARE /hpf Microscopic Urinalysis Comment CULTURE INDICATED Vital Signs Date Time Temp Pulse Resp B/P (MAP) Pulse Ox O2 Delivery O2 Flow Rate FiO2 12/10/16 17:27 122 24 113/67 (82) 97 Room Air Differential Diagnosis Influenza versus strep pharyngitis versus sepsis versus viral syndrome versus UTI versus metabolic abnormality versus other Narrative Course Patient is a 26-year-old male presenting to emergency room evaluation of nausea , vomiting, chest wall pain, myalgias. Patient's symptoms started yesterday. Patient was tachycardic and febrile on arrival. He appeared uncomfortable. His temp was reassessed in the room at 102.4. Labs and imaging ordered and pending. Patient given Toradol and acetaminophen for fever. He was given medications for nausea and vomiting. CBC with a white count greater than 21,000 left shift Lactic acid 3.4 Protein corrected calcium at 7.3, 1 g of calcium gluconate ordered UA consistent with UTI, reflex culture pending Patient was given a total of 3 L IV fluid Patient was given vancomycin and Zosyn Repeat lactic ordered, blood cultures obtained prior to abx. Dr. Torre accepted admit, orders placed. Discussed with Dr. Carson and patient. Patient admitted with sepsis, UTI, [place] ischemia, acute kidney injury. Sepsis Criteria SIRS Criteria (2 or more): Temp > 100.9 or < 96.8, Heart rate over 90, WBC > 45324, < 4000 or > 10% bands Severe Sepsis (+one): Lactate >2, Acute Oliguria/Renal Failure Criteria Outcome: Meets severe sepsis criteria Diagnosis Primary Impression: Sepsis Qualified Codes: A41.9 - Sepsis, unspecified organism Additional Impressions: Hypocalcemia CHIDI (acute kidney injury) UTI (urinary tract infection) Qualified Codes: N39.0 - Urinary tract infection, site not specified; R31.9 - Hematuria, unspecified Admitting Information Admitting Physician Requests: Admit Scripts No Active Prescriptions or Reported Meds Condition: Kylie Joyce Dec 10, 2016 18:21
[2016-12-10 18:38] LABS: AUTOMATED NEUTROPHIL # 18.9 TH/MM3 (1.8-7.7); BASOPHIL # 0.1 TH/MM3 (0-0.2); BASOPHIL % 0.3 % (0.0-2.0); HEMATOCRIT 40.3 % (39.0-51.0); HEMO FLAGS DIFF FINAL; LYMPH % 3.9 % (9.0-44.0); LYMPHOCYTE # 0.8 TH/MM3 (1.0-4.8); MEAN CELL VOLUME 81.8 FL (80.0-100.0); MEAN CORPUSCULAR HEMOGLOBIN 28.2 PG (27.0-34.0); MEAN CORPUSCULAR HGB CONC 34.5 % (32.0-36.0); NEUT % 88.8 % (16.0-70.0); PLATELET COUNT 218 TH/MM3 (150-450); RED BLOOD COUNT 4.93 MIL/MM3 (4.50-5.90); RED CELL DISTRIBUTION WIDTH 13.4 % (11.6-17.2); WHITE BLOOD COUNT 21.3 TH/MM3 (4.0-11.0)
[2016-12-10 19:01] LABS: BICARBONATE 21.2 MEQ/L (21.0-32.0); POTASSIUM 3.5 MEQ/L (3.5-5.1); TOTAL BILIRUBIN ADULT 0.8 MG/DL (0.2-1.0)
[2016-12-10 19:15] VITALS: BP 123/65; PULSE 120; RESP 24; O2SAT 97
[2016-12-10] MEDS ORDERED: ACETAMINOPHEN 500 MG CPLT PO ONE (19:15)
[2016-12-10 19:41] LABS: BACTERIA, URINE RARE /hpf; BLOOD, URINE MOD (NEG); COMMENT (UR) CULTURE INDICATED; CULTURE IF INDICATED CULTURE INDICATED; GLUCOSE,URINE NEG (NEG); KETONE, URINE TRACE mg/dL (NEG); NITRITE,URINE NEG (NEG); URINE COLOR YELLOW (YELLW/STRAW)
[2016-12-10] MEDS ORDERED: PIPERACIL-TAZO 4.5 GM PREMIX 100 ML IV STA (19:46)
[2016-12-10] MEDS ORDERED: VANCOMYCIN INJ 1,000 MG in SODIUM CHLOR 0.9% 250 ML INJ 250 ML IV STA (19:46)
--- NOTE | 2016-12-10 19:51 | RADRPT ---
EXAM DATE/TIME: 12/10/2016 19:21 [facility] COMPARISON: CHEST SINGLE AP, April 27, 2016, 10:43. INDICATIONS : Chest pain, nausea. MEDICAL HISTORY : None. SURGICAL HISTORY : None. ENCOUNTER: Initial ACUITY: 1 day PAIN SCORE: 3/10 LOCATION: Bilateral chest FINDINGS: A single view of the chest demonstrates the lungs to be symmetrically aerated without evidence of mas s, infiltrate or effusion. The cardiomediastinal contours are unremarkable. Osseous structures are intact. CONCLUSION: No acute disease. Daren Harmon MD on December 10, 2016 at 19:49 Board Certified Radiologist. This report was verified electronically.
[2016-12-10] MEDS ORDERED: IOHEXOL 350 MG/ML 10 ML VIAL (for RAD DIAG) IVCONTRAST ONE (20:19)
[2016-12-10 20:31] VITALS: BP 110/60; PULSE 118; O2SAT 96
--- NOTE | 2016-12-10 20:43 | RADRPT ---
EXAM DATE/TIME: 12/10/2016 20:10 [facility] COMPARISON: No previous studies available for comparison. INDICATIONS : Abdominal pain with nausea, vomiting and fever. IV CONTRAST: 95 cc Omnipaque 350 (iohexol) IV ORAL CONTRAST: No oral contrast ingested. RADIATION DOSE: 10.31 CTDIvol (mGy) MEDICAL HISTORY : None SURGICAL HISTORY : None. ENCOUNTER: Initial ACUITY: 1 day PAIN SCALE: 10/10 LOCATION: All quadrants. TECHNIQUE: Volumetric scanning of the abdomen and pelvis was performed. Using automated exposure control and ad justment of the mA and/or kV according to patient size, radiation dose was kept as low as reasonably achievable to obtain optimal diagnostic quality images. DICOM format image data is available electro nically for review and comparison. FINDINGS: LOWER LUNGS: The visualized lower lungs are clear. LIVER: The liver is mildly enlarged and demonstrates diffuse fatty infiltration. No focal hepatic mass is no emily. There is no dilation of the biliary tree. No calcified gallstones. SPLEEN: Normal size without lesion. PANCREAS: Within normal limits. KIDNEYS: Normal in size and shape. Two tiny subcentimeter left renal cysts are noted. There is no mass, stone or hydronephrosis. ADRENAL GLANDS: Within normal limits. VASCULAR: There is no aortic aneurysm. BOWEL/MESENTERY: The stomach, small bowel, and colon demonstrate no acute abnormality. There is no free intraperitone al air or fluid. The appendix is normal. ABDOMINAL WALL: Within normal limits. RETROPERITONEUM: There is no lymphadenopathy. BLADDER: No wall thickening or mass. REPRODUCTIVE: Within normal limits. INGUINAL: There is no lymphadenopathy or hernia. MUSCULOSKELETAL: Within normal limits for patient age. CONCLUSION: 1. Enlarged fatty liver. 2. Two tiny subcentimeter left renal cysts. Daren Harmon MD on December 10, 2016 at 20:37 Board Certified Radiologist. This report was verified electronically.
[2016-12-10 21:03] LABS: CKMB 4.2 NG/ML (0.5-3.6)
[2016-12-10] MEDS ORDERED: CALCIUM GLUCONATE INJ 1 GM in SODIUM CHLORIDE 0.9% INJ 100 ML IV ONE (21:15)
[2016-12-10] MEDS ORDERED: ONDANSETRON HCL 4 MG/2 ML VIAL IVP PRN (21:30)
[2016-12-10] MEDS ORDERED: NALOXONE HCL 0.4 MG/ML AMP IV PUSH PRN (21:30)
[2016-12-10] MEDS ORDERED: Vancomycin Consult Pharmacy 1 EA OTHER SCH (21:30)
[2016-12-10 22:29] VITALS: BP 106/60; PULSE 104; RESP 24; TEMP 100.6; O2SAT 97
[2016-12-11 00:42] VITALS: BP 119/73; PULSE 82; RESP 18; TEMP 97.8; O2SAT 96
--- NOTE | 2016-12-11 02:36 | HHI.HP ---
HPI Service [facility] Primary Care Physician Unknown Admission Diagnosis SEPSIS, UTI, HYPOCALCEMIA, CHIDI Diagnoses: (1) Sepsis (2) UTI (urinary tract infection) Chief Complaint: Fever with nausea and vomiting Travel History International Travel<30 Days: No Contact w/Intl Traveler <30 Da: No Traveled to Known Affected Are: No History of Present Illness Written by Nadia Hu, acting as scribe for Dr. Torre on 12/11/16 at 02:36. Fevers for two days. Highest 102 degrees. Complains of nausea/vomiting - up to 5 times per day Denies red emesis Complaining of severely sore throat Denies dysuria, hematuria, black or red stool, abdominal pain The patient is irritable with the history taking process and complains that he' s already answered these questions two times during interview. He had a similar admission April of this year though he also had chest pain during that admission Review of Systems Except as stated in HPI: all other systems reviewed are Neg Past Family Social History Past Medical History denies any medical problems . Past Surgical History denies . Reported Medications Reported Meds & Active Scripts Active No Active Prescriptions or Reported Medications . Allergies: Coded Allergies: No Known Allergies (Unverified , 04/27/16) Active Ordered Medications Current Medications Diphenhydramine HCl (Benadryl Inj) 50 mg ONCE ONCE IV PUSH Last administered on 12/10/16 19:56; Start 12/10/16 at 17:45; Stop 12/10/16 at 17:46; Status DC Metoclopramide HCl (Reglan Inj) 10 mg ONCE ONCE IV PUSH Last administered on 19:57; Start 12/10/16 at 17:45; Stop 12/10/16 at 17:46; Status DC Ondansetron HCl (Zofran Inj) 4 mg ONCE ONCE IVP Last administered on 19:57; Start 12/10/16 at 17:45; Stop 12/10/16 at 17:46; Status DC Sodium Chloride 1,000 ml @ 1,000 mls/hr Q1H ONCE IV Last administered on 19:55; Start 12/10/16 at 17:45; Stop 12/10/16 at 18:44; Status DC Sodium Chloride (NS Flush) 2 ml UNSCH PRN IVF FLUSH AFTER USING IV ACCESS Last administered on 12/10/16 20:46; Start 12/10/16 at 17:45; Stop 12/10/16 at 21:23 ; Status DC Ketorolac Tromethamine (Toradol Inj) 30 mg ONCE ONCE IV PUSH Last administered on 12/10/16 19:58; Start 12/10/16 at 18:00; Stop 12/10/16 at 18:01 ; Status DC Sodium Chloride 1,000 ml @ 999 mls/hr BOLUS ONCE IV Last administered on 12/10 19:58; Start 12/10/16 at 19:15; Stop 12/10/16 at 20:15; Status DC Sodium Chloride (NS Flush) 2 ml UNSCH PRN IVF FLUSH AFTER USING IV ACCESS Last administered on 12/10/16 20:46; Start 12/10/16 at 19:15; Stop 12/10/16 at 21:23 ; Status DC Acetaminophen (Tylenol) 1,000 mg ONCE ONCE PO Last administered on 12/10/16 20:09; Start 12/10/16 at 19:15; Stop 12/10/16 at 19:17; Status DC Sodium Chloride 1,000 ml @ 999 mls/hr BOLUS ONCE IV Last administered on 12/10 20:45; Start 12/10/16 at 19:45; Stop 12/10/16 at 20:45; Status DC Vancomycin HCl 1000 mg/Sodium Chloride 250 ml @ 250 mls/hr ONCE STAT IV Last administered on 12/10/16 21:10; Start 12/10/16 at 19:46; Stop 12/10/16 at 20:45 ; Status DC Piperacillin Sod/ Tazobactam Sod 100 ml @ 200 mls/hr ONCE STAT IV Last administered on 12/10/16 20:45; Start 12/10/16 at 19:46; Stop 12/10/16 at 20:15 ; Status DC Iohexol (Omnipaque 350 Inj) 95 ml STK-MED ONCE IVCONTRAST Last administered on 9/20/17at 20:19; Start 12/10/16 at 20:19; Stop 12/10/16 at 20:20; Status DC Calcium Gluconate 1 gm/Sodium Chloride 110 ml @ 110 mls/hr ONCE ONCE IV Last administered on 12/10/16t 22:27; Start 12/10/16 at 21:15; Stop 12/10/16 at 22:15 ; Status DC Sodium Chloride (NS Flush) 2 ml UNSCH PRN IV FLUSH FLUSH AFTER USING IV ACCESS ; Start 12/10/16 at 21:30 Sodium Chloride (NS Flush) 2 ml BID IV FLUSH ; Start 12/11/16 at 09:00 Ondansetron HCl (Zofran Inj) 4 mg Q6H PRN IVP NAUSEA OR VOMITING; Start at 21:30 Naloxone HCl (Narcan Inj) 0.4 mg UNSCH PRN IV PUSH SEE LABEL COMMENTS; Start at 21:30 Pharmacy Profile Note 0 ml @ 0 mls/hr UNSCH OTHER ; Start 12/10/16 at 21:30 Piperacillin Sod/ Tazobactam Sod 100 ml @ 200 mls/hr Q6H IV ; Start 12/11/16 at 03:00 Vancomycin HCl 1250 mg/Sodium Chloride 262.5 ml @ 250 mls/hr Q12H IV ; Start at 06:00 Miscellaneous Information SPECIFIC LAB TO BE DRAWN:VANCOMYCIN TROUGH DATE TO... ONCE ONCE .XX ; Start 12/12/16 at 05:45; Stop 12/12/16 at 05:46 . Family History Denies any family illnesses . Social History Tobacco: denies Alcohol: denies Illicit Drugs: denies . Physical Exam Vital Signs Vital Signs Date Time Temp Pulse Resp B/P (MAP) Pulse Ox O2 Delivery O2 Flow Rate FiO2 12/11/16 00:42 97.8 82 18 119/73 (88) 96 12/10/16 23:17 12/10/16 22:29 100.6 104 24 106/60 (75) 97 Room Air 12/10/16 20:31 118 110/60 (77) 96 Room Air 12/10/16 19:15 120 24 123/65 (84) 97 Room Air 12/10/16 18:20 97 Room Air 12/10/16 17:50 100.9 12/10/16 17:27 122 24 113/67 (82) 97 Room Air Physical Exam GENERAL: This is an irritable young male patient. SKIN: No rashes, ecchymoses or lesions. Cool and dry. HEAD: Atraumatic. Normocephalic. EYES: No scleral icterus. No injection or drainage. ENT: Nose without bleeding, purulent drainage or septal hematoma. Airway patent. NECK: Trachea midline. No JVD or lymphadenopathy. Supple, nontender, no meningeal signs. CARDIOVASCULAR: Regular rate and rhythm without murmurs, gallops, or rubs. RESPIRATORY: Clear to auscultation. Breath sounds equal bilaterally. No wheezes , rales, or rhonchi. GASTROINTESTINAL: Abdomen soft, non-tender, nondistended. No hepato-splenomegaly , or palpable masses. No guarding. MUSCULOSKELETAL: Extremities without clubbing, cyanosis, or edema. No calf tenderness. NEUROLOGICAL: Awake and alert. Normal speech. . Laboratory Laboratory Tests Test 12/10/16 18:10 12/10/16 19:15 12/10/16 21:03 White Blood Count 21.3 Red Blood Count 4.93 Hemoglobin 13.9 Hematocrit 40.3 Mean Corpuscular Volume 81.8 Mean Corpuscular Hemoglobin 28.2 Mean Corpuscular Hemoglobin Concent 34.5 Red Cell Distribution Width 13.4 Platelet Count 218 Mean Platelet Volume 9.2 Neutrophils (%) (Auto) 88.8 Lymphocytes (%) (Auto) 3.9 Monocytes (%) (Auto) 7.0 Eosinophils (%) (Auto) 0.0 Basophils (%) (Auto) 0.3 Neutrophils # (Auto) 18.9 Lymphocytes # (Auto) 0.8 Monocytes # (Auto) 1.5 Eosinophils # (Auto) 0.0 Basophils # (Auto) 0.1 CBC Comment DIFF FINAL Differential Comment Blood Urea Nitrogen 19 Creatinine 1.75 Random Glucose 117 Total Protein 8.3 Albumin 4.3 Calcium Level 7.3 Alkaline Phosphatase 79 Aspartate Amino Transf (AST/SGOT) 41 Alanine Aminotransferase (ALT/SGPT) 49 Total Bilirubin 0.8 Sodium Level 134 Potassium Level 3.5 Chloride Level 101 Carbon Dioxide Level 21.2 Anion Gap 12 Estimat Glomerular Filtration Rate 48 Lactic Acid Level 3.4 1.0 Protein Corrected Calcium Total Creatine Kinase 909 Creatine Kinase MB 4.2 Creatine Kinase MB % 0.5 Lipase 64 Urine Color YELLOW Urine Turbidity CLEAR Urine pH 7.0 Urine Specific Gilliam 1.014 Urine Protein 100 Urine Glucose (UA) NEG Urine Ketones TRACE Urine Occult Blood MOD Urine Nitrite NEG Urine Bilirubin NEG Urine Urobilinogen LESS THAN 2.0 Urine Leukocyte Esterase TRACE Urine RBC 1 Urine WBC 12 Urine Bacteria RARE Microscopic Urinalysis Comment CULTURE INDICATED Date/Time Source Procedure Growth Status 12/10/16 20:28 Blood Peripheral Aerobic Blood Culture Pending Received 12/10/16 20:28 Blood Peripheral Anaerobic Blood Culture Pending Received 12/10/16 19:20 Throat Group A Streptococcus Screen Pending Received 12/10/16 19:15 Urine Clean Catch Urine Culture Pending Received Result Diagram: 12/10/16 1810 12/10/16 1810 Imaging Last Impressions Chest X-Ray 12/10/16 0000 Signed Impressions: Service Date/Time: Saturday, December 10, 2016 19:21 - CONCLUSION: No acute disease. Daren Harmon MD Abdomen/Pelvis CT 12/10/16 0000 Signed Impressions: Service Date/Time: Saturday, December 10, 2016 20:10 - CONCLUSION: 1. Enlarged fatty liver. 2. Two tiny subcentimeter left renal cysts. Daren Harmon MD . Caprini VTE Risk Assessment Caprini VTE Risk Assessment: Mod/High Risk (score >= 2) Caprini Risk Assessment Model Point Value = 1 Point Value = 2 Point Value = 3 Point Value = 5 Age 41-60 Minor surgery BMI > 25 kg/m2 Swollen legs Varicose veins or History of unexplained or recurrent spontaneous Oral contraceptives or hormone replacement Sepsis (< 1 month) Serious lung disease, including pneumonia (< 1 month) Abnormal pulmonary function Acute myocardial infarction Congestive heart failure (< 1 month) History of inflammatory bowel disease Medical patient at bed rest Age 61-74 Arthroscopic surgery Major open surgery (> 45 min) Laparoscopic surgery (> 45 min) Malignancy Confined to bed (> 72 hours) Immobilizing plaster cast Central venous access Age >= 75 History of VTE Family history of VTE Factor V Leiden Prothrombin [id number] Lupus anticoagulant Anticardiolipin antibodies Elevated serum homocysteine Heparin-induced thrombocytopenia Other congenital or acquired thrombophilia Stroke (< 1 month) Elective arthroplasty Hip, pelvis, or leg fracture Acute spinal cord injury (< 1 month) Prophylaxis Regimen Total Risk Factor Score Risk Level Prophylaxis Regimen 0-1 Low Early ambulation 2 Moderate Order ONE of the following: *Sequential Compression Device (SCD) *Heparin 5000 units SQ BID 3-4 Higher Order ONE of the following medications: *Heparin 5000 units SQ TID *Enoxaparin/Lovenox 40 mg SQ daily (WT < 150 kg, CrCl > 30 mL/min) *Enoxaparin/Lovenox 30 mg SQ daily (WT < 150 kg, CrCl > 10-29 mL/min) *Enoxaparin/Lovenox 30 mg SQ BID (WT < 150 kg, CrCl > 30 mL/min) AND/OR *Sequential Compression Device (SCD) 5 or more Highest Order ONE of the following medications: *Heparin 5000 units SQ TID (Preferred with Epidurals) *Enoxaparin/Lovenox 40 mg SQ daily (WT < 150 kg, CrCl > 30 mL/min) *Enoxaparin/Lovenox 30 mg SQ daily (WT < 150 kg, CrCl > 10-29 mL/min) *Enoxaparin/Lovenox 30 mg SQ BID (WT < 150 kg, CrCl > 30 mL/min) AND *Sequential Compression Device (SCD) Assessment and Plan Problem List: (1) Sepsis ICD Code: A41.9 - Sepsis, unspecified organism Status: Acute (2) UTI (urinary tract infection) ICD Code: N39.0 - Urinary tract infection, site not specified Status: Acute (3) CHIDI (acute kidney injury) ICD Code: N17.9 - Acute kidney failure, unspecified Status: Acute (4) Hypocalcemia ICD Code: E83.51 - Hypocalcemia Status: Acute (5) Sore throat ICD Code: J02.9 - Acute pharyngitis, unspecified (6) Nausea & vomiting ICD Code: R11.2 - Nausea with vomiting, unspecified Assessment and Plan 26 y/o male who presented to ED with dizziness, nausea and vomiting: Sepsis UTI - WBC 21.3 with neutrophilia; lactic acid 3.4 on admission and 1.0 on recheck - UA suggestive of possible UTI - await urine culture results, check for GC/ chlamydia - follow results and adjust treatments as needed - Antibiotics: Vancomycin with pharmacy consult for assistance with therapeutic dosing and monitoring, Zosyn 4.5 gm IV q6h - blood cultures pending - follow results and adjust treatment as needed - negative CXR and negative for Flu A and B nasal washing - Abdomen/Pelvis CT: enlarged fatty liver; two tiny subcentimeter left renal cysts Sore throat, severe - viral vs mechanical secondary to N/V - examination of oropharynx is normal, patient complains of severe sore throat making it painful to speak - negative strep testing in ED - consider checking CT of neck for pathological causes of painful throat when patient able to get contrast again - Check urine drug screen - + for marijuana and opiates during 04/2016 admission - Would obtain GC and chlamydial cultures in the urine. Patient is quite angry addressed at the time of interview because he does not feel like talking while he has severe sore throat. I had suspicion that patient might have some information that he is not revealing. Would probably need to ask him more when he is in a better mood regarding his social lifestyle. It seems that his previous hospitalization had similar episodes and symptoms of nausea vomiting. For now we will start with checking for GC and chlamydia. N/V - possible viral gastroenteritis vs possible opiate withdrawal - Zofran 4mg IV q6h PRN n/v - Lipase low at 64 CHIDI - BUN 19, creatinine 1.75, and eGFR 48 - NS IVF bolus x 3 liters total in ED - recheck BMP in a.m. and follow results in renal indices - avoid nephrotoxins Hypocalcemia - Calcium 7.3 - Calcium replaced - recheck level in a.m. and follow results; replace as indicated DVT prophylaxis - Lovenox 40 mg subq q24h This note was transcribed by gloria [Nadia Hu]. I, Dr. Wilbert Torre personally performed the history, physical exam, and medical decision making; and confirmed the accuracy of the information in the transcribed note. Authenticated by Dr. Wilbert Torre on 12/11/16 at 02:36. Discussed Condition With ER physician, patient, patient's RN Physician Certification 2 Midnight Certification Type: Admission for Inpatient Services Order for Inpatient Services The services are ordered in accordance with Medicare regulations or non- Medicare payer requirements, as applicable. In the case of services not specified as inpatient-only, they are appropriately provided as inpatient services in accordance with the 2-midnight benchmark. Estimated LOS (days): 3 days is the estimated time the patient will need to remain in the hospital, assuming treatment plan goals are met and no additional complications. Post-Hospital Plan: Home Problem Qualifiers (1) Sepsis: Qualified Codes: A41.9 - Sepsis, unspecified organism (2) UTI (urinary tract infection): Qualified Codes: N39.0 - Urinary tract infection, site not specified; R31.9 - Hematuria, unspecified Nadia Hu Dec 11, 2016 02:36 Wilbert Torre MD Dec 11, 2016 09:49
[2016-12-11] MEDS: PIPERACIL-TAZO 4.5 GM PREMIX 100 ML IV SCH ×3 (04:00→20:22)
[2016-12-11 04:52] LABS: AUTOMATED NEUTROPHIL # 8.9 TH/MM3 (1.8-7.7); BASOPHIL % 0.2 % (0.0-2.0); HEMATOCRIT 36.2 % (39.0-51.0); HEMO FLAGS DIFF FINAL; LYMPH % 9.1 % (9.0-44.0); MEAN CELL VOLUME 83.5 FL (80.0-100.0); MEAN CORPUSCULAR HEMOGLOBIN 28.2 PG (27.0-34.0); MEAN CORPUSCULAR HGB CONC 33.8 % (32.0-36.0); MONO % 7.1 % (0.0-8.0); NEUT % 83.6 % (16.0-70.0); PLATELET COUNT 153 TH/MM3 (150-450); RED BLOOD COUNT 4.34 MIL/MM3 (4.50-5.90); RED CELL DISTRIBUTION WIDTH 13.7 % (11.6-17.2); WHITE BLOOD COUNT 10.6 TH/MM3 (4.0-11.0)
[2016-12-11 05:00] VITALS: BP 122/64; PULSE 86; RESP 18; TEMP 98.7; O2SAT 92
[2016-12-11 05:30] LABS: ALKALINE PHOSPHATASE 61 U/L (45-117); ALT (GPT) 40 U/L (12-78); ANION GAP 8 MEQ/L (5-15); AST (GOT) 59 U/L (15-37); BICARBONATE 20.9 MEQ/L (21.0-32.0); BLOOD UREA NITROGEN 14 MG/DL (7-18); CHLORIDE 108 MEQ/L (98-107); GLOMERULAR FILTRATION RATE 64 ML/MIN (>89); POTASSIUM 3.1 MEQ/L (3.5-5.1); SODIUM (NA) 137 MEQ/L (136-145); TOTAL BILIRUBIN ADULT 0.7 MG/DL (0.2-1.0)
[2016-12-11] MEDS ORDERED: VANCOMYCIN INJ 1,250 MG in SODIUM CHLOR 0.9% 250 ML INJ 250 ML IV SCH (06:00)
[2016-12-11 06:13] LABS: CHLAMYDIA PCR DETECTED (NOT DETECT); NEISSERIA PCR NOT DETECTED (NOT DETECT)
[2016-12-11 08:00] VITALS: BP 118/57; PULSE 90; RESP 16; TEMP 99.6; O2SAT 95
[2016-12-11] MEDS ORDERED: POTASSIUM CHLORIDE 20 MEQ CONTROLLED RELEASE TAB PO SCH (10:00)
[2016-12-11] MEDS: ENOXAPARIN SODIUM 40 MG/0.4 ML SYRINGE SQ SCH (10:40)
[2016-12-11] MEDS: SODIUM CHLORIDE 0.9% FLUSH 10 ML FLUSH IV FLUSH SCH ×2 (10:48→20:26)
[2016-12-11 11:50] VITALS: PULSE 75
[2016-12-11 12:00] VITALS: BP 116/63; PULSE 84; RESP 17; TEMP 96.4; O2SAT 95
[2016-12-11] MEDS: POTASSIUM CHLOR 20 MEQ PREMIX 100 ML IV SCH ×3 (12:00→23:56)
[2016-12-11] MEDS ORDERED: VANCOMYCIN INJ 1,500 MG in SODIUM CHLORID 0.9% 500 ML INJ 500 ML IV SCH (14:00)
[2016-12-11] MEDS ORDERED: MORPHINE SULFATE 4 MG/ML INJ IV PUSH PRN (14:15)
[2016-12-11] MEDS: MORPHINE SULFATE 4 MG/ML INJ IV PUSH PRN ×2 (15:04→20:22)
[2016-12-11] MEDS: PANTOPRAZOLE SODIUM 40 MG VIAL IV PUSH SCH (15:04)
[2016-12-11] MEDS: SODIUM CHLOR 0.9% 1000 ML INJ 1,000 ML IV SCH (16:40)
[2016-12-11 20:00] VITALS: BP 134/86; PULSE 98; RESP 20; TEMP 100.5; O2SAT 100
[2016-12-11 20:41] LABS: BICARBONATE 23.3 MEQ/L (21.0-32.0); POTASSIUM 3.1 MEQ/L (3.5-5.1)
[2016-12-11] MEDS ORDERED: KETOROLAC TROMETHAMINE 30 MG/ML (IVP) VIAL IV PUSH ONE (23:00)
[2016-12-11] MEDS ORDERED: ACETAMINOPHEN 325 MG TAB PO PRN (23:15)
[2016-12-11] MEDS ORDERED: PROMETHAZINE INJ 25 MG/ML VIAL IM ONE (23:15)
[2016-12-12] VITALS: BP 131/75; PULSE 92; RESP 20; TEMP 99.5; O2SAT 98
[2016-12-12] MEDS: SODIUM CHLOR 0.9% 1000 ML INJ 1,000 ML IV SCH (00:02)
[2016-12-12] MEDS: MORPHINE SULFATE 4 MG/ML INJ IV PUSH PRN ×5 (00:30→20:06)
[2016-12-12] MEDS: POTASSIUM CHLOR 20 MEQ PREMIX 100 ML IV SCH (02:27)
[2016-12-12 04:00] VITALS: BP 117/77; PULSE 108; RESP 20; TEMP 96.7; O2SAT 97
[2016-12-12] MEDS: PIPERACIL-TAZO 4.5 GM PREMIX 100 ML IV SCH ×2 (04:49→10:13)
[2016-12-12] MEDS ORDERED: VANCOMYCIN INJ 1,500 MG in SODIUM CHLORID 0.9% 500 ML INJ 500 ML IV SCH (05:00)
[2016-12-12] MEDS ORDERED: PHARMACY ORDERED LAB ONE (05:45)
[2016-12-12 07:47] LABS: BICARBONATE 24.2 MEQ/L (21.0-32.0); MAGNESIUM 2.5 MG/DL (1.5-2.5); POTASSIUM 3.2 MEQ/L (3.5-5.1)
[2016-12-12 07:49] LABS: INDIRECT BILIRUBIN 0.3 MG/DL (0.0-0.8); TOTAL BILIRUBIN ADULT 0.5 MG/DL (0.2-1.0)
[2016-12-12 08:00] VITALS: BP 109/59; PULSE 88; RESP 16; TEMP 97.2; O2SAT 97
[2016-12-12] MEDS: ENOXAPARIN SODIUM 40 MG/0.4 ML SYRINGE SQ SCH (08:56)
[2016-12-12] MEDS ORDERED: POTASSIUM CHLOR 20 MEQ PREMIX 100 ML IV SCH ×2 (09:00→16:45)
[2016-12-12] MEDS: SODIUM CHLORIDE 0.9% FLUSH 10 ML FLUSH IV FLUSH SCH ×2 (09:00→20:06)
--- NOTE | 2016-12-12 11:41 | HHI.PR ---
Subjective Remarks The patient said that his pain was severe and located on the lower part of his stomach. He said he tried to eat some man crackers but got too nauseous. He says the pain medication helps a little bit. He says he has been having black stools. Objective Vitals Vital Signs Date Time Temp Pulse Resp B/P (MAP) Pulse Ox O2 Delivery O2 Flow Rate FiO2 12/12/16 09:00 16 12/12/16 08:00 97.2 88 16 109/59 (76) 97 12/12/16 04:00 96.7 108 20 117/77 (90) 97 12/12/16 00:00 99.5 92 20 131/75 (93) 98 12/11/16 20:00 100.5 98 20 134/86 (102) 100 12/11/16 12:00 96.4 84 17 116/63 (80) 95 12/11/16 11:50 75 I/O 12/11/16 12/11/16 12/11/16 12/12/16 12/12/16 12/12/16 07:00 15:00 23:00 07:00 15:00 23:00 Intake Total 120 ml 1568 ml 1540 ml Output Total 600 ml 1550 ml 600 ml Balance -480 ml 18 ml 940 ml Intake Oral 120 ml 740 ml 240 ml IV Total 828 ml 1300 ml Output Urine Total 600 ml 1400 ml 600 ml Emesis 150 ml # Voids 1 # Bowel Movements 0 Result Diagram: 12/11/16 0416 12/12/16 0625 Imaging Last Impressions Chest X-Ray 12/10/16 0000 Signed Impressions: Service Date/Time: Saturday, December 10, 2016 19:21 - CONCLUSION: No acute disease. Daren Harmon MD Abdomen/Pelvis CT 12/10/16 0000 Signed Impressions: Service Date/Time: Saturday, December 10, 2016 20:10 - CONCLUSION: 1. Enlarged fatty liver. 2. Two tiny subcentimeter left renal cysts. Daren Harmon MD Objective Remarks GENERAL: Resting in bed. SKIN: No rashes, ecchymoses or lesions. Cool and dry. Pale. HEAD: Atraumatic. Normocephalic. EYES: No scleral icterus. No injection or drainage. ENT: Nose without bleeding, purulent drainage or septal hematoma. Airway patent. NECK: Trachea midline. No JVD or lymphadenopathy. Supple, nontender, no meningeal signs. CARDIOVASCULAR: Regular rate and rhythm without murmurs, gallops, or rubs. RESPIRATORY: Clear to auscultation. Breath sounds equal bilaterally. No wheezes , rales, or rhonchi. GASTROINTESTINAL: Abdomen soft, tender around the umbilicus, nondistended. No hepato-splenomegaly, or palpable masses. No guarding. MUSCULOSKELETAL: Extremities without clubbing, cyanosis, or edema. No calf tenderness. NEUROLOGICAL: Awake and alert. Normal speech. PSYCH: Slightly flattened affect. Medications and IVs Current Medications Medications (Trade) Dose Ordered Sig/Ramesh Route Start Time Stop Time Status Last Admin (NS Flush) 2 ml UNSCH PRN IV FLUSH 12/10/16 21:30 (NS Flush) 2 ml BID IV FLUSH 12/11/16 09:00 12/11/16 10:48 (Zofran Inj) 4 mg Q6H PRN IVP 12/10/16 21:30 12/11/16 20:22 (Narcan Inj) 0.4 mg UNSCH PRN IV PUSH 12/10/16 21:30 (Lovenox Inj) 40 mg Q24H SQ 12/11/16 09:00 12/12/16 08:56 Miscellaneous Information SPECIFIC LAB TO BE DRAWN:VANCOMYCIN TROUGH DATE TO... ONCE ONCE .XX 12/13/16 04:45 12/13/16 04:46 (Morphine Inj) 2 mg Q4H PRN IV PUSH 12/11/16 14:15 12/12/16 08:55 (Morphine Inj) 2 mg Q4H PRN IV PUSH 12/11/16 14:15 (Protonix Inj) 40 mg Q24H IV PUSH 12/11/16 15:00 12/11/16 15:04 (Tylenol) 650 mg Q4H PRN PO 12/11/16 23:15 Potassium Chloride 100 ml @ 50 mls/hr Q2H IV 12/12/16 09:00 12/12/16 12:59 A/P Problem List: (1) Sepsis ICD Code: A41.9 - Sepsis, unspecified organism Status: Acute (2) UTI (urinary tract infection) ICD Code: N39.0 - Urinary tract infection, site not specified Status: Acute (3) CHIDI (acute kidney injury) ICD Code: N17.9 - Acute kidney failure, unspecified Status: Acute (4) Hypocalcemia ICD Code: E83.51 - Hypocalcemia Status: Acute (5) Sore throat ICD Code: J02.9 - Acute pharyngitis, unspecified (6) Nausea & vomiting ICD Code: R11.2 - Nausea with vomiting, unspecified Assessment and Plan SIRS WBC 21.3 with neutrophilia; lactic acid 3.4. UA suggestive of possible UTI, but urine culture was negative. Negative CXR and negative for Flu A and B nasal washing Chlamydia probe was positive. - d/c vancomycin and Zosyn and monitor. - follow blood cultures. Sore throat Negative strep testing in ED. Possibly viral. - supportive care. Abdominal pain/ Nausea Abdomen/Pelvis CT: enlarged, fatty liver; two tiny subcentimeter left renal cysts. The pt is still unable to eat. - Zofran 4mg IV q6h PRN n/v. - IV PPI. - pain control as needed. - GI consult requested. - check a Hemoccult as the pt has reported black stools. Chlamydia The pt is currently unable to hold pills down s/t nausea. - azithromycin 1000 mg x 1 when able to swallow pills. CHIDI S/t decreased PO intake. - resolved with fluids. Hypokalemia S/t decreased PO intake. - replete with IV KCl and monitor. PPx: Lovenox Discharge Planning Awaiting GI evaluation Problem Qualifiers (1) Sepsis: Qualified Codes: A41.9 - Sepsis, unspecified organism (2) UTI (urinary tract infection): Qualified Codes: N39.0 - Urinary tract infection, site not specified; R31.9 - Hematuria, unspecified Luis F Grier DO Dec 12, 2016 11:41
[2016-12-12] MEDS ORDERED: SUCCINYLCHOLINE CHLORIDE 100 MG/5 ML SYRINGE IV PUSH ONE (12:00)
[2016-12-12] MEDS ORDERED: ONDANSETRON HCL 4 MG/2 ML VIAL IV PUSH ONE (12:00)
[2016-12-12] MEDS ORDERED: PHENYLEPH/NS 1000 MCG/10 ML SYR IV ONE (12:00)
[2016-12-12] MEDS ORDERED: PROPOFOL 200 MG/20 ML AMP IV ONE (12:00)
--- NOTE | 2016-12-12 12:16 | PD.CONS ---
HPI History of Present Illness This is a 26 year old male who presented to the emergency room for evaluation of nausea and vomiting with associated abdominal pain that began on 12/10/16. He states that he developed the sudden onset of nausea and vomiting with clear emesis or gastric secretions, but denies any hematemesis. Since the vomiting began, he has had severe acid reflux/heartburn, although he reports that he usually does not have any issues with that. He has associated lower abdominal stabbing pain that is intermittent. His symptoms are aggravated by po intake and he cannot identify any alleviating factors. He reports that he then started having black tarry stools earlier today. He denies any history of GERD or PUD. He was hospitalized for nausea/vomiting back in April of 2016 and his symptoms were contributed to his marijuana use at that time. He reports that he does not currently smoke marijuana and his toxicology screen was negative. He rarely drinks alcohol and does not take NSAIDs. He has never had an EGD. (Ana Hoffmann) [facility] Past Medical History Denies Past Surgical History Right knee surgery due to meniscus tear (Ana Hoffmann) Coded Allergies: No Known Allergies (Unverified , 04/27/16) Medications Allergies Coded Allergies Type Severity Reaction Last Updated Verified No Known Allergies 04/27/16 No Active Scripts Medications Dose Route/Sig Max Daily Dose Days Date Category No Active Prescriptions or Reported Medications Rx Family History Denies any family illnesses Social History Tobacco: denies, but uses electronic cigarette Alcohol: denie Illicit Drugs: denies . (Ana Hoffmann) Review of Systems Constitutional: COMPLAINS OF: Fatigue, Fever, Chills Respiratory: DENIES: Cough Cardiovascular: DENIES: Chest pain Gastrointestinal: COMPLAINS OF: Abdominal pain, Black stools, Nausea, Vomiting , Heartburn, DENIES: Bloody stools, Constipation, Diarrhea, Swelling of Abdomen , Hematemesis Genitourinary: DENIES: Urinary frequency, Urgency, Hematuria, Dysuria Musculoskeletal: DENIES: Back pain Neurologic: DENIES: Headache Psychiatric: DENIES: Confusion (Ana Hoffmann) GI Exam Vitals I&O Vital Signs Date Time Temp Pulse Resp B/P (MAP) Pulse Ox O2 Delivery O2 Flow Rate FiO2 12/12/16 09:00 16 12/12/16 08:00 97.2 88 16 109/59 (76) 97 12/12/16 04:00 96.7 108 20 117/77 (90) 97 12/12/16 00:00 99.5 92 20 131/75 (93) 98 12/11/16 20:00 100.5 98 20 134/86 (102) 100 I/O 12/11/16 12/11/16 12/11/16 12/12/16 12/12/16 12/12/16 07:00 15:00 23:00 07:00 15:00 23:00 Intake Total 120 ml 1568 ml 1540 ml Output Total 600 ml 1550 ml 600 ml Balance -480 ml 18 ml 940 ml Intake Oral 120 ml 740 ml 240 ml IV Total 828 ml 1300 ml Output Urine Total 600 ml 1400 ml 600 ml Emesis 150 ml # Voids 1 # Bowel Movements 0 Imaging Last Impressions Chest X-Ray 12/10/16 0000 Signed Impressions: Service Date/Time: Saturday, December 10, 2016 19:21 - CONCLUSION: No acute disease. Daren Harmon MD Abdomen/Pelvis CT 12/10/16 0000 Signed Impressions: Service Date/Time: Saturday, December 10, 2016 20:10 - CONCLUSION: 1. Enlarged fatty liver. 2. Two tiny subcentimeter left renal cysts. Daren Harmon MD Laboratory Test 12/11/16 19:49 12/12/16 06:25 Blood Urea Nitrogen 9 MG/DL 8 MG/DL Creatinine 1.05 MG/DL 1.18 MG/DL Random Glucose 90 MG/DL 134 MG/DL Calcium Level 8.2 MG/DL 8.4 MG/DL Sodium Level 135 MEQ/L 136 MEQ/L Potassium Level 3.1 MEQ/L 3.2 MEQ/L Chloride Level 104 MEQ/L 105 MEQ/L Carbon Dioxide Level 23.3 MEQ/L 24.2 MEQ/L Anion Gap 8 MEQ/L 7 MEQ/L Estimat Glomerular Filtration Rate 86 ML/MIN 75 ML/MIN Monoscreen NEG Total Protein 7.0 GM/DL Albumin 3.1 GM/DL Magnesium Level 2.5 MG/DL Alkaline Phosphatase 61 U/L Aspartate Amino Transf (AST/SGOT) 55 U/L Alanine Aminotransferase (ALT/SGPT) 41 U/L Total Bilirubin 0.5 MG/DL Direct Bilirubin 0.2 MG/DL Indirect Bilirubin 0.3 MG/DL Date/Time Source Procedure Growth Status 12/10/16 20:28 Blood Peripheral Aerobic Blood Culture - Preliminary NO GROWTH IN 2 DAYS Resulted 12/10/16 20:28 Blood Peripheral Anaerobic Blood Culture - Preliminary NO GROWTH IN 2 DAYS Resulted 12/10/16 19:20 Throat Group A Streptococcus Screen - Final NO GP A BETA STREP ISOLATED. Complete 12/10/16 19:15 Urine Clean Catch Urine Culture - Final NO GROWTH IN 48 HOURS. Complete Physical Examination HEENT: Normocephalic; atraumatic; no jaundice. CHEST: CTA CARDIAC: RRR ABDOMEN: Soft, nondistended,mild diffuse tenderness; no hepatosplenomegaly; bowel sounds are present in all four quadrants. EXTREMITIES: No clubbing, cyanosis, or edema. SKIN: Normal; no rash; no jaundice. STROKE COORDINATOR: No focal deficits; alert and oriented times three. (Ana Hoffmann) Assessment and Plan Plan ASSESSMENT: - Melena. Pt has been having n/v/heartburn x 2 days and started having black tarry stool today. HH 13.9/40.3---> 12.2/36.2. Clear liquids. PPI - N/V, Abdominal pain, Melena. Pt reports 2 day hx of n/v/abdominal pain and started having melena today. He was seen in April of 2016 for n/v and it was thought that his symptoms were related to his MJ use at that time. He no longer uses marijuana and his toxicology was negative. He denies any hx of PUD. Has never had an EGD. Denies the use of NSAIDs. CT Scan abdomen and pelvis (12/10/16)---> Enlarged fatty liver, two tiny subcentimeter left renal cysts. - Severe reflux, heartburn. Denies any regular issues with this, but has had severe heartburn since the n/v began. PPI - Abn. U/A, Cx negative. - Fever. BCx no growth 2 days. PLAN: - Plan for EGD today - Obtain consents - NPO - Protonix 40mg IV daily - Monitor labs - Supportive care - Further recommendations to follow based on results of above - Pt seen and examined by Dr. Hernadnez and myself and this note is written on his behalf (Ana Hoffmann) Physician Comments Patient seen and examined Agree with above Continue with current supportive care Monitor labs We will plan on an EGD today (Jaylan Hernandez MD) Ana Hoffmann Dec 12, 2016 12:16 Jaylan Hernandez MD Dec 12, 2016 13:32
[2016-12-12] MEDS ORDERED: DO NOT ADM ANY ANTICOAGULANT DRUGS PRN (13:38)
--- NOTE | 2016-12-12 13:38 | PD.PROCEDR ---
GI Procedure REFERRING PHYSICIAN RADHA PROCEDURE PERFORMED EGD with biopsy INDICATION FOR PROCEDURE Abdominal pain nausea vomiting heartburn melena PROCEDURE: The procedure, risks and benefits were discussed with Mr. Delgadillo and informed consent was obtained. Anesthesia sedated him with Diprivan. He was placed in the left lateral decubitus position. EGD: The Pentax videoscope was introduced through the oropharynx and advanced to the second portion of the duodenum under direct visualization. Retroflexion was performed in the stomach. FINDINGS: The esophagus this appeared to be unremarkable and within normal limits The stomach there was some patchy erythema in the antrum but no ulcerations no erosions no blood or bleeding and the rest of the gastric mucosa was unremarkable antral biopsies were taken for further evaluation The duodenum there was also some patchy erythema in the duodenal bulb but again no ulcers and no erosions biopsies were taken for further evaluation the rest of the duodenum was unremarkable ESTIMATED BLOOD LOSS: None SPECIMENS REMOVED: Gastric and duodenal biopsies COMPLICATIONS: None IMPRESSION: Mild gastritis Mild duodenitis PLAN: Await biopsies Continue with current supportive care Monitor labs Consider gastric emptying scan if symptoms persist into tomorrow Jaylan Hernandez MD Dec 12, 2016 13:38
[2016-12-12] MEDS: SODIUM CHLORIDE 0.9% FLUSH 10 ML FLUSH IV FLUSH PRN (14:55)
[2016-12-12] MEDS: PANTOPRAZOLE SODIUM 40 MG VIAL IV PUSH SCH (14:56)
[2016-12-12 15:38] VITALS: BP 134/89; PULSE 81; RESP 18; TEMP 98.1; O2SAT 98
[2016-12-12 19:14] VITALS: O2SAT 98
[2016-12-12 20:00] VITALS: BP 123/78; PULSE 87; PULSE 91; RESP 18; TEMP 99.7; O2SAT 97
[2016-12-13] VITALS (8 sets, daily range): BP systolic 113–130; BP diastolic 66–91; PULSE 65–88; RESP 17–18; TEMP 96.9–98.6; O2SAT 95–100
[2016-12-13] MEDS: MORPHINE SULFATE 4 MG/ML INJ IV PUSH PRN ×7 (00:02→22:05)
[2016-12-13] MEDS ORDERED: PHARMACY ORDERED LAB ONE (04:45)
[2016-12-13 07:03] LABS: AUTOMATED NEUTROPHIL # 1.9 TH/MM3 (1.8-7.7); BASOPHIL % 0.4 % (0.0-2.0); EOSINOPHIL # 0.2 TH/MM3 (0-0.4); EOSINOPHIL % 3.3 % (0.0-4.0); HEMATOCRIT 38.5 % (39.0-51.0); HEMO FLAGS DIFF FINAL; LYMPH % 33.4 % (9.0-44.0); LYMPHOCYTE # 1.6 TH/MM3 (1.0-4.8); MEAN CELL VOLUME 81.9 FL (80.0-100.0); MEAN CORPUSCULAR HEMOGLOBIN 28.2 PG (27.0-34.0); MEAN CORPUSCULAR HGB CONC 34.4 % (32.0-36.0); NEUT % 39.9 % (16.0-70.0); PLATELET COUNT 167 TH/MM3 (150-450); RED CELL DISTRIBUTION WIDTH 13.5 % (11.6-17.2); WHITE BLOOD COUNT 4.8 TH/MM3 (4.0-11.0)
[2016-12-13 07:12] LABS: BICARBONATE 28.1 MEQ/L (21.0-32.0); MAGNESIUM 2.5 MG/DL (1.5-2.5); POTASSIUM 3.2 MEQ/L (3.5-5.1)
[2016-12-13] MEDS: ENOXAPARIN SODIUM 40 MG/0.4 ML SYRINGE SQ SCH (08:26)
[2016-12-13] MEDS: SODIUM CHLORIDE 0.9% FLUSH 10 ML FLUSH IV FLUSH SCH ×2 (08:26→21:00)
--- NOTE | 2016-12-13 13:01 | HHI.PR ---
Subjective Remarks The pt says that he had some hot tea without throwing up. He denies pain on urination. He still has severe nausea. Discussed with nursing. Objective Vitals Vital Signs Date Time Temp Pulse Resp B/P (MAP) Pulse Ox O2 Delivery O2 Flow Rate FiO2 12/13/16 11:57 98.1 67 18 127/84 (98) 100 12/13/16 08:47 98 21 12/13/16 08:39 97.9 65 18 129/80 (96) 99 12/13/16 04:00 96.9 78 18 113/71 (85) 95 12/13/16 00:00 98.1 88 18 117/80 (92) 97 12/12/16 20:00 87 12/12/16 20:00 99.7 91 18 123/78 (93) 97 12/12/16 19:14 98 21 12/12/16 15:38 98.1 81 18 134/89 (104) 98 12/12/16 14:00 82 20 131/81 (98) 97 Room Air 12/12/16 13:45 93 14 127/74 (91) 98 Room Air 12/12/16 13:42 98.0 93 12 124/84 (97) 99 Room Air I/O 12/12/16 12/12/16 12/12/16 12/13/16 12/13/16 12/13/16 07:00 15:00 23:00 07:00 15:00 23:00 Intake Total 1540 ml 500 ml 877 ml 720 ml Output Total 600 ml 1600 ml 2625 ml Balance 940 ml 500 ml -723 ml -1905 ml Intake Oral 240 ml 720 ml IV Total 1300 ml 500 ml 877 ml Output Urine Total 600 ml 1600 ml 2625 ml # Bowel Movements 0 0 Result Diagram: 12/13/16 0602 12/13/16 0602 Imaging Last Impressions Chest X-Ray 12/10/16 0000 Signed Impressions: Service Date/Time: Saturday, December 10, 2016 19:21 - CONCLUSION: No acute disease. Daren Harmon MD Abdomen/Pelvis CT 12/10/16 0000 Signed Impressions: Service Date/Time: Saturday, December 10, 2016 20:10 - CONCLUSION: 1. Enlarged fatty liver. 2. Two tiny subcentimeter left renal cysts. Daren Harmon MD Objective Remarks GENERAL: Resting in bed. SKIN: No rashes, ecchymoses or lesions. Cool and dry. Pale. HEAD: Atraumatic. Normocephalic. EYES: No scleral icterus. No injection or drainage. ENT: Nose without bleeding, purulent drainage or septal hematoma. Airway patent. NECK: Trachea midline. No JVD or lymphadenopathy. Supple, nontender, no meningeal signs. CARDIOVASCULAR: Regular rate and rhythm without murmurs, gallops, or rubs. RESPIRATORY: Clear to auscultation. Breath sounds equal bilaterally. No wheezes , rales, or rhonchi. GASTROINTESTINAL: Abdomen soft, tender around the umbilicus, nondistended. No hepato-splenomegaly, or palpable masses. No guarding. MUSCULOSKELETAL: Extremities without clubbing, cyanosis, or edema. Questionable CVA tenderness. NEUROLOGICAL: Awake and alert. Normal speech. PSYCH: Slightly flattened affect. Medications and IVs Current Medications Medications (Trade) Dose Ordered Sig/Ramesh Route Start Time Stop Time Status Last Admin (NS Flush) 2 ml UNSCH PRN IV FLUSH 12/10/16 21:30 12/12/16 14:55 (NS Flush) 2 ml BID IV FLUSH 12/11/16 09:00 12/11/16 10:48 (Zofran Inj) 4 mg Q6H PRN IVP 12/10/16 21:30 12/11/16 20:22 (Narcan Inj) 0.4 mg UNSCH PRN IV PUSH 12/10/16 21:30 (Lovenox Inj) 40 mg Q24H SQ 12/11/16 09:00 12/13/16 08:26 (Morphine Inj) 2 mg Q4H PRN IV PUSH 12/11/16 14:15 12/13/16 10:08 (Morphine Inj) 2 mg Q4H PRN IV PUSH 12/11/16 14:15 (Protonix Inj) 40 mg Q24H IV PUSH 12/11/16 15:00 12/12/16 14:56 (Tylenol) 650 mg Q4H PRN PO 12/11/16 23:15 Miscellaneous Information ALL NURSING DEPARTME... UNSCH PRN .XX 12/12/16 13:38 12/13/16 13:37 Potassium Chloride 100 ml @ 50 mls/hr Q2H IV 12/13/16 13:00 12/13/16 16:59 UNV A/P Problem List: (1) Sepsis ICD Code: A41.9 - Sepsis, unspecified organism Status: Acute (2) UTI (urinary tract infection) ICD Code: N39.0 - Urinary tract infection, site not specified Status: Acute (3) CHIDI (acute kidney injury) ICD Code: N17.9 - Acute kidney failure, unspecified Status: Acute (4) Hypocalcemia ICD Code: E83.51 - Hypocalcemia Status: Acute (5) Sore throat ICD Code: J02.9 - Acute pharyngitis, unspecified (6) Nausea & vomiting ICD Code: R11.2 - Nausea with vomiting, unspecified Assessment and Plan SIRS WBC 21.3 with neutrophilia; lactic acid 3.4. UA suggestive of possible UTI, but urine culture was negative. UA did have blood in it. No dysuria. Negative CXR and negative for Flu A and B nasal washing Chlamydia probe was positive. Leukocytosis improved. - d/c vancomycin and Zosyn and monitor. - follow blood cultures. - repeat UA. Abdominal pain/ Nausea Abdomen/Pelvis CT: enlarged, fatty liver; two tiny subcentimeter left renal cysts. The pt is still unable to eat. GI consult appreciated. EGD with mild gastritis and duodenitis. - Zofran 4mg IV q6h PRN n/v. Start standing IV Reglan. - IV PPI. - pain control as needed. - GI considering gastric emptying study. - check a Hemoccult as the pt has reported black stools. Chlamydia The pt is currently unable to hold pills down s/t nausea. - azithromycin 1000 mg x 1 when able to swallow pills. CHIDI S/t decreased PO intake. - resolved with fluids. Hypokalemia S/t decreased PO intake. - replete with IV KCl and monitor. Sore throat Negative strep testing in ED. Possibly viral. - supportive care. Seems resolved. PPx: Lovenox Discharge Planning Awaiting improvement Problem Qualifiers (1) Sepsis: Qualified Codes: A41.9 - Sepsis, unspecified organism (2) UTI (urinary tract infection): Qualified Codes: N39.0 - Urinary tract infection, site not specified; R31.9 - Hematuria, unspecified Luis F Grier DO Dec 13, 2016 13:01
[2016-12-13] MEDS: METOCLOPRAMIDE HCL 10 MG/2 ML VIAL IV PUSH SCH ×2 (13:53→19:34)
[2016-12-13] MEDS: PANTOPRAZOLE SODIUM 40 MG VIAL IV PUSH SCH (13:53)
[2016-12-13] MEDS: POTASSIUM CHLOR 20 MEQ PREMIX 100 ML IV SCH ×2 (13:53→18:02)
--- NOTE | 2016-12-13 20:01 | HHI.GIFU ---
Subjective Remarks Patient Laying in bed still complaining of lower abdominal pain and nausea Objective Vitals I&O Vital Signs Date Time Temp Pulse Resp B/P (MAP) Pulse Ox O2 Delivery O2 Flow Rate FiO2 12/13/16 15:42 98.6 80 17 118/66 (83) 97 12/13/16 11:57 98.1 67 18 127/84 (98) 100 12/13/16 08:47 98 21 12/13/16 08:39 97.9 65 18 129/80 (96) 99 12/13/16 04:00 96.9 78 18 113/71 (85) 95 12/13/16 00:00 98.1 88 18 117/80 (92) 97 12/12/16 20:00 87 12/12/16 20:00 99.7 91 18 123/78 (93) 97 I/O 12/12/16 12/12/16 12/12/16 12/13/16 12/13/16 12/13/16 07:00 15:00 23:00 07:00 15:00 23:00 Intake Total 1540 ml 500 ml 877 ml 720 ml 100 ml Output Total 600 ml 1600 ml 2625 ml Balance 940 ml 500 ml -723 ml -1905 ml 100 ml Intake Oral 240 ml 720 ml IV Total 1300 ml 500 ml 877 ml 100 ml Output Urine Total 600 ml 1600 ml 2625 ml # Bowel Movements 0 0 Laboratory Laboratory Tests Test 12/13/16 06:02 White Blood Count 4.8 Red Blood Count 4.70 Hemoglobin 13.3 Hematocrit 38.5 Mean Corpuscular Volume 81.9 Mean Corpuscular Hemoglobin 28.2 Mean Corpuscular Hemoglobin Concent 34.4 Red Cell Distribution Width 13.5 Platelet Count 167 Mean Platelet Volume 8.7 Neutrophils (%) (Auto) 39.9 Lymphocytes (%) (Auto) 33.4 Monocytes (%) (Auto) 23.0 Eosinophils (%) (Auto) 3.3 Basophils (%) (Auto) 0.4 Neutrophils # (Auto) 1.9 Lymphocytes # (Auto) 1.6 Monocytes # (Auto) 1.1 Eosinophils # (Auto) 0.2 Basophils # (Auto) 0.0 CBC Comment DIFF FINAL Differential Comment Blood Urea Nitrogen 10 Creatinine 1.13 Random Glucose 79 Calcium Level 8.5 Magnesium Level 2.5 Sodium Level 138 Potassium Level 3.2 Chloride Level 104 Carbon Dioxide Level 28.1 Anion Gap 6 Estimat Glomerular Filtration Rate 79 Date/Time Source Procedure Growth Status 12/10/16 20:28 Blood Peripheral Aerobic Blood Culture - Preliminary NO GROWTH IN 3 DAYS Resulted 12/10/16 20:28 Blood Peripheral Anaerobic Blood Culture - Preliminary NO GROWTH IN 3 DAYS Resulted 12/10/16 19:20 Throat Group A Streptococcus Screen - Final NO GP A BETA STREP ISOLATED. Complete 12/10/16 19:15 Urine Clean Catch Urine Culture - Final NO GROWTH IN 48 HOURS. Complete Physical Exam NECK: Neck is supple, CHEST: Chest is clear to auscultation and percussion. CARDIAC: Regular rate and rhythm with no murmur gallop or rubs. ABDOMEN: Soft, nondistended, lower abdominal tenderness no rebound or guarding ; no hepatosplenomegaly; bowel sounds are present in all four quadrants. EXTREMITIES: No clubbing, cyanosis, or edema. SKIN: Normal; no rash; no jaundice. COMMUNICATIONS DEPARTMENT HEAD: No focal deficits; alert and oriented times three. Assessment and Plan Plan ASSESSMENT: - Melena. Pt has been having n/v/heartburn x 2 days and started having black tarry stool today. HH 13.9/40.3---> 12.2/36.2. Clear liquids. PPI - N/V, Abdominal pain, Melena. Pt reports 2 day hx of n/v/abdominal pain and started having melena today. He was seen in April of 2016 for n/v and it was thought that his symptoms were related to his MJ use at that time. He no longer uses marijuana and his toxicology was negative. He denies any hx of PUD. Has never had an EGD. Denies the use of NSAIDs. CT Scan abdomen and pelvis (12/10/16)---> Enlarged fatty liver, two tiny subcentimeter left renal cysts. - Severe reflux, heartburn. Denies any regular issues with this, but has had severe heartburn since the n/v began. PPI - Abn. U/A, Cx negative. - Fever. BCx no growth 2 days. -UTI, and chlamydia infection EGD done yesterday reveals gastritis and mild duodenitis PLAN: -Continue PPI -Consider surgical evaluation -Considering gastric emptying scan - Monitor labs - Supportive care - Further recommendations to follow based on results of above Jaylan Hernandez MD Dec 13, 2016 20:01
[2016-12-14] VITALS (7 sets, daily range): BP systolic 108–136; BP diastolic 64–88; PULSE 76–106; RESP 17–20; TEMP 96.1–98; O2SAT 97–100
[2016-12-14] MEDS: MORPHINE SULFATE 4 MG/ML INJ IV PUSH PRN ×5 (04:29→21:05)
[2016-12-14] MEDS: METOCLOPRAMIDE HCL 10 MG/2 ML VIAL IV PUSH SCH ×4 (04:29→21:05)
[2016-12-14 04:54] LABS: BLOOD, URINE NEG (NEG); GLUCOSE,URINE NEG (NEG); KETONE, URINE NEG (NEG); NITRITE,URINE NEG (NEG); PH, URINE 6.5 (5.0-8.5); URINE COLOR LIGHT-YELLOW (YELLW/STRAW)
[2016-12-14 05:06] LABS: COMMENT (UR) CULT NOT INDICATED; CULTURE IF INDICATED CULT NOT INDICATED
[2016-12-14] MEDS: SODIUM CHLORIDE 0.9% FLUSH 10 ML FLUSH IV FLUSH SCH ×2 (07:56→21:05)
[2016-12-14] MEDS: ENOXAPARIN SODIUM 40 MG/0.4 ML SYRINGE SQ SCH (07:56)
--- NOTE | 2016-12-14 10:55 | HHI.PR ---
Subjective Remarks The patient says that he was able to hold some water and ice cream down. Otherwise he still has lower abdominal pain. He had earlier this morning he had more severe abdominal pain but now it is normal. He said he felt cold and hot at the same time. Objective Vitals Vital Signs Date Time Temp Pulse Resp B/P (MAP) Pulse Ox O2 Delivery O2 Flow Rate FiO2 12/14/16 08:40 96.8 78 20 121/88 (99) 12/14/16 04:00 96.6 82 17 108/64 (79) 97 12/14/16 00:00 97.8 76 17 128/76 (93) 97 12/13/16 20:28 65 12/13/16 20:00 98.4 85 17 130/91 (104) 97 12/13/16 15:42 98.6 80 17 118/66 (83) 97 12/13/16 11:57 98.1 67 18 127/84 (98) 100 I/O 12/13/16 12/13/16 12/13/16 12/14/16 12/14/16 12/14/16 07:00 15:00 23:00 07:00 15:00 23:00 Intake Total 720 ml 100 ml 240 ml Output Total 2625 ml 1000 ml Balance -1905 ml 100 ml -760 ml Intake Oral 720 ml 240 ml IV Total 100 ml Output Urine Total 2625 ml 1000 ml # Bowel Movements 0 Result Diagram: 12/13/16 0602 12/13/16 0602 Imaging Last Impressions Chest X-Ray 12/10/16 0000 Signed Impressions: Service Date/Time: Saturday, December 10, 2016 19:21 - CONCLUSION: No acute disease. Daren Harmon MD Abdomen/Pelvis CT 12/10/16 0000 Signed Impressions: Service Date/Time: Saturday, December 10, 2016 20:10 - CONCLUSION: 1. Enlarged fatty liver. 2. Two tiny subcentimeter left renal cysts. Daren Harmon MD Objective Remarks GENERAL: Resting in bed. SKIN: No rashes, ecchymoses or lesions. Cool and dry. Pale. HEAD: Atraumatic. Normocephalic. EYES: No scleral icterus. No injection or drainage. ENT: Nose without bleeding, purulent drainage or septal hematoma. Airway patent. NECK: Trachea midline. No JVD or lymphadenopathy. Supple, nontender, no meningeal signs. CARDIOVASCULAR: Regular rate and rhythm without murmurs, gallops, or rubs. RESPIRATORY: Clear to auscultation. Breath sounds equal bilaterally. No wheezes , rales, or rhonchi. GASTROINTESTINAL: Abdomen soft, tender in the lower quadrants. No hepato- splenomegaly, or palpable masses. No guarding. MUSCULOSKELETAL: Extremities without clubbing, cyanosis, or edema. Questionable CVA tenderness. NEUROLOGICAL: Awake and alert. Normal speech. PSYCH: Slightly flattened affect. Procedures EGD Medications and IVs Current Medications Medications (Trade) Dose Ordered Sig/Ramesh Route Start Time Stop Time Status Last Admin (NS Flush) 2 ml UNSCH PRN IV FLUSH 12/10/16 21:30 12/12/16 14:55 (NS Flush) 2 ml BID IV FLUSH 12/11/16 09:00 12/14/16 07:56 (Zofran Inj) 4 mg Q6H PRN IVP 12/10/16 21:30 12/11/16 20:22 (Narcan Inj) 0.4 mg UNSCH PRN IV PUSH 12/10/16 21:30 (Lovenox Inj) 40 mg Q24H SQ 12/11/16 09:00 12/14/16 07:56 (Morphine Inj) 2 mg Q4H PRN IV PUSH 12/11/16 14:15 12/14/16 09:03 (Morphine Inj) 2 mg Q4H PRN IV PUSH 12/11/16 14:15 (Protonix Inj) 40 mg Q24H IV PUSH 12/11/16 15:00 12/13/16 13:53 (Tylenol) 650 mg Q4H PRN PO 12/11/16 23:15 (Reglan Inj) 5 mg Q8HR IV PUSH 12/13/16 14:00 12/16/16 14:01 12/14/16 04:29 A/P Problem List: (1) Sepsis ICD Code: A41.9 - Sepsis, unspecified organism Status: Acute (2) UTI (urinary tract infection) ICD Code: N39.0 - Urinary tract infection, site not specified Status: Acute (3) CHIDI (acute kidney injury) ICD Code: N17.9 - Acute kidney failure, unspecified Status: Acute (4) Hypocalcemia ICD Code: E83.51 - Hypocalcemia Status: Acute (5) Sore throat ICD Code: J02.9 - Acute pharyngitis, unspecified (6) Nausea & vomiting ICD Code: R11.2 - Nausea with vomiting, unspecified Assessment and Plan SIRS WBC 21.3 with neutrophilia; lactic acid 3.4. UA suggestive of possible UTI, but urine culture was negative. UA did have blood in it. No dysuria. Negative CXR and negative for Flu A and B nasal washing Chlamydia probe was positive. Leukocytosis improved. - d/c vancomycin and Zosyn and monitor. - follow blood cultures. - repeat UA. Abdominal pain/ Nausea Abdomen/Pelvis CT: enlarged, fatty liver; two tiny subcentimeter left renal cysts. The pt is still unable to eat. GI consult appreciated. EGD with mild gastritis and duodenitis. Currently afebrile and without leukocytosis. - Zofran 4mg IV q6h PRN n/v. Started standing IV Reglan. - IV PPI. - pain control as needed. - GI considering gastric emptying study. - check a Hemoccult as the pt has reported black stools. Chlamydia The pt is currently unable to hold pills down s/t nausea. - azithromycin 1000 mg x 1 when able to swallow pills. CHIDI S/t decreased PO intake. - resolved with fluids. Hypokalemia S/t decreased PO intake. - replete with IV KCl and monitor. Repeat BMP pending. Sore throat Negative strep testing in ED. Possibly viral. - supportive care. Seems resolved. PPx: Lovenox Discharge Planning Awaiting improvement Problem Qualifiers (1) Sepsis: Qualified Codes: A41.9 - Sepsis, unspecified organism (2) UTI (urinary tract infection): Qualified Codes: N39.0 - Urinary tract infection, site not specified; R31.9 - Hematuria, unspecified Luis F Grier DO Dec 14, 2016 10:55
[2016-12-14 13:41] LABS: ALT (GPT) 110 U/L (12-78); ANION GAP 6 MEQ/L (5-15); AST (GOT) 108 U/L (15-37); BICARBONATE 27.9 MEQ/L (21.0-32.0); BLOOD UREA NITROGEN 13 MG/DL (7-18); CHLORIDE 100 MEQ/L (98-107); GLOMERULAR FILTRATION RATE 88 ML/MIN (>89); POTASSIUM 3.9 MEQ/L (3.5-5.1); SODIUM (NA) 134 MEQ/L (136-145)
[2016-12-14 13:47] LABS: ALKALINE PHOSPHATASE 72 U/L (45-117); TOTAL BILIRUBIN ADULT 0.4 MG/DL (0.2-1.0)
[2016-12-14] MEDS: PANTOPRAZOLE SODIUM 40 MG VIAL IV PUSH SCH (14:29)
--- NOTE | 2016-12-14 14:51 | HHI.GIFU ---
Subjective Remarks Lying in bed. Reports continued lower abdominal pain, nausea, and vomiting. States he continues to have difficulty keeping any oral intake down. (Meliza Burnett) Objective Vitals I&O Vital Signs Date Time Temp Pulse Resp B/P (MAP) Pulse Ox O2 Delivery O2 Flow Rate FiO2 12/14/16 12:40 97.8 81 20 136/88 (104) 99 12/14/16 08:40 96.8 78 20 121/88 (99) 12/14/16 04:00 96.6 82 17 108/64 (79) 97 12/14/16 00:00 97.8 76 17 128/76 (93) 97 12/13/16 20:28 65 12/13/16 20:00 98.4 85 17 130/91 (104) 97 12/13/16 15:42 98.6 80 17 118/66 (83) 97 I/O 12/13/16 12/13/16 12/13/16 12/14/16 12/14/16 12/14/16 07:00 15:00 23:00 07:00 15:00 23:00 Intake Total 720 ml 100 ml 240 ml Output Total 2625 ml 1000 ml Balance -1905 ml 100 ml -760 ml Intake Oral 720 ml 240 ml IV Total 100 ml Output Urine Total 2625 ml 1000 ml # Bowel Movements 0 Laboratory Laboratory Tests Test 12/14/16 04:15 12/14/16 12:53 Urine Color LIGHT-YELLOW Urine Turbidity CLEAR Urine pH 6.5 Urine Specific [place] 1.007 Urine Protein NEG Urine Glucose (UA) NEG Urine Ketones NEG Urine Occult Blood NEG Urine Nitrite NEG Urine Bilirubin NEG Urine Urobilinogen LESS THAN 2.0 Urine Leukocyte Esterase NEG Urine WBC 1 Microscopic Urinalysis Comment CULT NOT INDICATED Blood Urea Nitrogen 13 Creatinine 1.03 Random Glucose 90 Total Protein 8.0 Albumin 3.9 Calcium Level 9.5 Alkaline Phosphatase 72 Aspartate Amino Transf (AST/SGOT) 108 Alanine Aminotransferase (ALT/SGPT) 110 Total Bilirubin 0.4 Sodium Level 134 Potassium Level 3.9 Chloride Level 100 Carbon Dioxide Level 27.9 Anion Gap 6 Estimat Glomerular Filtration Rate 88 Date/Time Source Procedure Growth Status 12/10/16 20:28 Blood Peripheral Aerobic Blood Culture - Preliminary NO GROWTH IN 4 DAYS Resulted 12/10/16 20:28 Blood Peripheral Anaerobic Blood Culture - Preliminary NO GROWTH IN 4 DAYS Resulted 12/14/16 12:35 Stool Stool Stool Occult Blood (MARIANO) Pending Received 12/10/16 19:20 Throat Group A Streptococcus Screen - Final NO GP A BETA STREP ISOLATED. Complete 12/10/16 19:15 Urine Clean Catch Urine Culture - Final NO GROWTH IN 48 HOURS. Complete Imaging Last Impressions Chest X-Ray 12/10/16 0000 Signed Impressions: Service Date/Time: Saturday, December 10, 2016 19:21 - CONCLUSION: No acute disease. Daren Harmon MD Abdomen/Pelvis CT 12/10/16 0000 Signed Impressions: Service Date/Time: Thursday, December 10, 2016 20:10 - CONCLUSION: 1. Enlarged fatty liver. 2. Two tiny subcentimeter left renal cysts. Daren Harmon MD Physical Exam HEAD: Normocephalic NECK: Neck is supple, CHEST: CTA CARDIAC: RRR with no murmur gallop or rubs. ABDOMEN: Soft, nondistended, lower abdominal tenderness, no hepatosplenomegaly ; bowel sounds are present EXTREMITIES: No clubbing, cyanosis, or edema. SKIN: Normal; no rash; no jaundice. 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 HH 13.9/40.3 (12/10)---> 12.2/ 36.2 (12/11). Clear liquids. PPI. - N/V, Abdominal pain, Melena. Pt reports 2 day hx of n/v/abdominal pain and then started having melena. He was seen in April of 2016 for n/v and it was thought that his symptoms were related to his MJ use at that time. He no longer uses marijuana and his toxicology was negative. He denies any hx of PUD. Has never had previous EGD. Denies the use of NSAIDs. CT Scan abdomen and pelvis (12/10/16)---> Enlarged fatty liver, two tiny subcentimeter left renal cysts. EGD (12/12/16)--Mild gastritis, Mild duodenitis. - Severe reflux, heartburn. Denies any regular issues with this, but has had severe heartburn since the n/v began. PPI - Abn. U/A, Cx negative. - Fever. BCx no growth 4 days. -UTI, and chlamydia infection 12/14/16: Continues to have lower abdominal pain, nausea and vomiting. Having difficulty time keeping any oral intake down without vomiting. Hemoccult pending. HH 13.3/38.5 (12/13). WBC 4.8 (12/13). PLAN: - Gastric emptying scan - Await biopsies - Await Hemoccult results - Continue PPI - Consider surgical evaluation - Monitor labs - Supportive care - Further recommendations to follow based on results of above Patient seen and examined by Dr. Hernandez and myself and this note is written on his behalf. (Meliza Burnett) Physician Comments Patient seen and examined Agree with above Continue with current supportive care And monitor labs (Jaylan Hernandez MD) Meliza Burnett Dec 14, 2016 14:51 Jaylan Hernandez MD Dec 14, 2016 22:28
[2016-12-15] VITALS: BP 120/81; PULSE 89; RESP 17; TEMP 96.8; O2SAT 100
[2016-12-15] MEDS: MORPHINE SULFATE 4 MG/ML INJ IV PUSH PRN ×6 (01:00→21:23)
[2016-12-15 04:00] VITALS: BP 108/67; PULSE 94; RESP 17; TEMP 95.9; O2SAT 95
[2016-12-15 05:36] LABS: BICARBONATE 23.6 MEQ/L (21.0-32.0); MAGNESIUM 2.4 MG/DL (1.5-2.5); POTASSIUM 3.4 MEQ/L (3.5-5.1)
[2016-12-15 08:00] VITALS: BP 122/72; PULSE 80; RESP 20; TEMP 96.9; O2SAT 98
[2016-12-15] MEDS: SODIUM CHLORIDE 0.9% FLUSH 10 ML FLUSH IV FLUSH SCH ×2 (08:43→21:19)
[2016-12-15] MEDS: ENOXAPARIN SODIUM 40 MG/0.4 ML SYRINGE SQ SCH (08:45)
--- NOTE | 2016-12-15 10:11 | HHI.GIFU ---
Subjective Remarks Seen while in nuclear medicine for gastric emptying scan. States that he was able to keep a salad down last night, but otherwise has been having ongoing nausea/vomiting, mild lower abdominal cramping after trying to eat. (Ana Hoffmann) Objective Vitals I&O Vital Signs Date Time Temp Pulse Resp B/P (MAP) Pulse Ox O2 Delivery O2 Flow Rate FiO2 12/15/16 08:00 96.9 80 20 122/72 (89) 98 12/15/16 04:00 95.9 94 17 108/67 (81) 95 12/15/16 00:00 96.8 89 17 120/81 (94) 100 12/14/16 20:03 106 12/14/16 20:00 96.1 92 17 125/87 (100) 100 12/14/16 16:36 98.0 85 20 125/83 (97) 100 12/14/16 12:40 97.8 81 20 136/88 (104) 99 I/O 12/14/16 12/14/16 12/14/16 12/15/16 12/15/16 12/15/16 07:00 15:00 23:00 07:00 15:00 23:00 Intake Total 240 ml 360 ml 240 ml 0 ml Output Total 1000 ml 675 ml 600 ml Balance -760 ml -315 ml -360 ml 0 ml Intake Oral 240 ml 360 ml 240 ml 0 ml Output Urine Total 1000 ml 675 ml 600 ml # Bowel Movements 1 Laboratory Laboratory Tests Test 12/14/16 12:53 12/15/16 04:46 Blood Urea Nitrogen 13 15 Creatinine 1.03 0.99 Random Glucose 90 101 Total Protein 8.0 Albumin 3.9 Calcium Level 9.5 9.1 Alkaline Phosphatase 72 Aspartate Amino Transf (AST/SGOT) 108 Alanine Aminotransferase (ALT/SGPT) 110 Total Bilirubin 0.4 Sodium Level 134 134 Potassium Level 3.9 3.4 Chloride Level 100 100 Carbon Dioxide Level 27.9 23.6 Anion Gap 6 10 Estimat Glomerular Filtration Rate 88 92 Magnesium Level 2.4 Date/Time Source Procedure Growth Status 12/10/16 20:28 Blood Peripheral Aerobic Blood Culture - Preliminary NO GROWTH IN 4 DAYS Resulted 12/10/16 20:28 Blood Peripheral Anaerobic Blood Culture - Preliminary NO GROWTH IN 4 DAYS Resulted 12/14/16 12:35 Stool Stool Stool Occult Blood (MARIANO) - Final HEMOCCULT NEGATIVE Complete 12/10/16 19:20 Throat Group A Streptococcus Screen - Final NO GP A BETA STREP ISOLATED. Complete 12/10/16 19:15 Urine Clean Catch Urine Culture - Final NO GROWTH IN 48 HOURS. Complete Imaging Last Impressions Chest X-Ray 12/10/16 0000 Signed Impressions: Service Date/Time: Saturday, December 10, 2016 19:21 - CONCLUSION: No acute disease. Daren Harmon MD Abdomen/Pelvis CT 12/10/16 0000 Signed Impressions: Service Date/Time: Saturday, December 10, 2016 20:10 - CONCLUSION: 1. Enlarged fatty liver. 2. Two tiny subcentimeter left renal cysts. Daren Harmon MD Physical Exam HEAD: Normocephalic CHEST: Resp. even/unlabored ABDOMEN: Unable to examine (getting GES) EXTREMITIES: No clubbing, cyanosis, or edema. SKIN: Normal; no rash; no jaundice. 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 S/P EGD (12/12/16)----> Mild gastritis, mild duodenitis. Pathology pending. HH Stable 13.3/38.5. PPI - N/V, Abdominal pain, Melena. Pt reports 2 day hx of n/v/abdominal pain and then started having melena. He was seen in April of 2016 for n/v and it was thought that his symptoms were related to his MJ use at that time. He no longer uses marijuana and his toxicology was negative. He denies any hx of PUD. Has never had previous EGD. Denies the use of NSAIDs. CT Scan abdomen and pelvis (12/10/16)---> Enlarged fatty liver, two tiny subcentimeter left renal cysts. EGD (12/12/16)--Mild gastritis, Mild duodenitis. Pathology pending. He continues to have nausea, difficulty tolerating po (although he did tolerate salad last night), and lower abdominal cramping when he tries to eat. He is getting GES now. PPI - Severe reflux, heartburn. Denies any regular issues with this, but has had severe heartburn since the n/v began. PPI - Abn. U/A, Cx negative. - Fever. BCx no growth 4 days. Afebrile. - Chlamydia infection Plan is for azithromycin when he is able to tolerate po meds. Per attending. PLAN: - Gastric emptying scan - Await biopsies - Continue PPI - Monitor labs - Supportive care - Further recommendations to follow based on results of above - Patient seen and examined by Dr. Seals and myself and this note is written on his behalf. (Ana Hoffmann) Plan Patient was seen and examined, agree with above Notes, await the results of gastric emptying study, tolerating some liquid and ice cream (Enrique Seals MD) Ana Hoffmann Dec 15, 2016 10:11 Enrique Seals MD Dec 15, 2016 16:28
[2016-12-15] MEDS ORDERED: METOCLOPRAMIDE HCL 10 MG/2 ML VIAL IV ONE (11:00)
--- NOTE | 2016-12-15 11:42 | HHI.PR ---
Subjective Remarks The pt was seen in nuclear medicine. He said he was done with the procedure. He said he tolerated a salad last night, though his abdominal pain was made worse by it. No other acute complaints. Objective Vitals Vital Signs Date Time Temp Pulse Resp B/P (MAP) Pulse Ox O2 Delivery O2 Flow Rate FiO2 12/15/16 08:00 96.9 80 20 122/72 (89) 98 12/15/16 04:00 95.9 94 17 108/67 (81) 95 12/15/16 00:00 96.8 89 17 120/81 (94) 100 12/14/16 20:03 106 12/14/16 20:00 96.1 92 17 125/87 (100) 100 12/14/16 16:36 98.0 85 20 125/83 (97) 100 12/14/16 12:40 97.8 81 20 136/88 (104) 99 I/O 12/14/16 12/14/16 12/14/16 12/15/16 12/15/16 12/15/16 07:00 15:00 23:00 07:00 15:00 23:00 Intake Total 240 ml 360 ml 240 ml 0 ml Output Total 1000 ml 675 ml 600 ml Balance -760 ml -315 ml -360 ml 0 ml Intake Oral 240 ml 360 ml 240 ml 0 ml Output Urine Total 1000 ml 675 ml 600 ml # Bowel Movements 1 Result Diagram: 12/13/16 0602 12/15/16 0446 Imaging Last Impressions Chest X-Ray 12/10/16 0000 Signed Impressions: Service Date/Time: Saturday, December 10, 2016 19:21 - CONCLUSION: No acute disease. Daren Harmon MD Abdomen/Pelvis CT 12/10/16 0000 Signed Impressions: Service Date/Time: Saturday, December 10, 2016 20:10 - CONCLUSION: 1. Enlarged fatty liver. 2. Two tiny subcentimeter left renal cysts. Daren Harmon MD Objective Remarks GENERAL: Resting in bed. SKIN: No rashes, ecchymoses or lesions. Cool and dry. Pale. HEAD: Atraumatic. Normocephalic. EYES: No scleral icterus. No injection or drainage. ENT: Nose without bleeding, purulent drainage or septal hematoma. Airway patent. NECK: Trachea midline. No JVD or lymphadenopathy. Supple, nontender, no meningeal signs. CARDIOVASCULAR: Regular rate and rhythm without murmurs, gallops, or rubs. RESPIRATORY: Clear to auscultation. Breath sounds equal bilaterally. No wheezes , rales, or rhonchi. GASTROINTESTINAL: Abdomen soft, tender in the lower quadrants. No hepato- splenomegaly, or palpable masses. No guarding. MUSCULOSKELETAL: Extremities without clubbing, cyanosis, or edema. Questionable CVA tenderness. NEUROLOGICAL: Awake and alert. Normal speech. PSYCH: Slightly flattened affect. Procedures EGD Medications and IVs Current Medications Medications (Trade) Dose Ordered Sig/Ramesh Route Start Time Stop Time Status Last Admin (NS Flush) 2 ml UNSCH PRN IV FLUSH 12/10/16 21:30 12/12/16 14:55 (NS Flush) 2 ml BID IV FLUSH 12/11/16 09:00 12/15/16 08:43 (Zofran Inj) 4 mg Q6H PRN IVP 12/10/16 21:30 12/11/16 20:22 (Narcan Inj) 0.4 mg UNSCH PRN IV PUSH 12/10/16 21:30 (Lovenox Inj) 40 mg Q24H SQ 12/11/16 09:00 12/15/16 08:45 (Morphine Inj) 2 mg Q4H PRN IV PUSH 12/11/16 14:15 12/15/16 08:42 (Morphine Inj) 2 mg Q4H PRN IV PUSH 12/11/16 14:15 (Protonix Inj) 40 mg Q24H IV PUSH 12/11/16 15:00 12/14/16 14:29 (Tylenol) 650 mg Q4H PRN PO 12/11/16 23:15 Potassium Chloride 100 ml @ 50 mls/hr Q2H IV 12/15/16 09:30 12/15/16 13:29 A/P Problem List: (1) Sepsis ICD Code: A41.9 - Sepsis, unspecified organism Status: Acute (2) UTI (urinary tract infection) ICD Code: N39.0 - Urinary tract infection, site not specified Status: Acute (3) CHIDI (acute kidney injury) ICD Code: N17.9 - Acute kidney failure, unspecified Status: Acute (4) Hypocalcemia ICD Code: E83.51 - Hypocalcemia Status: Acute (5) Sore throat ICD Code: J02.9 - Acute pharyngitis, unspecified (6) Nausea & vomiting ICD Code: R11.2 - Nausea with vomiting, unspecified Assessment and Plan SIRS WBC 21.3 with neutrophilia; lactic acid 3.4. UA suggestive of possible UTI, but urine culture was negative. UA did have blood in it. No dysuria. Negative CXR and negative for Flu A and B nasal washing Chlamydia probe was positive. Leukocytosis improved. - d/c vancomycin and Zosyn and monitor. - follow blood cultures. - repeat UA. Abdominal pain/ Nausea Abdomen/Pelvis CT: enlarged, fatty liver; two tiny subcentimeter left renal cysts. The pt is still unable to eat. GI consult appreciated. EGD with mild gastritis and duodenitis. Currently afebrile and without leukocytosis. Hemoccult negative. - Zofran 4mg IV q6h PRN n/v. Started standing IV Reglan. D/c at this time. - IV PPI. - pain control as needed. - GI ordered gastric emptying study. Results pending. Chlamydia The pt is currently unable to hold pills down s/t nausea. - azithromycin 1000 mg x 1 when able to swallow pills. Will hold off today as can cause GI distress. CHIDI S/t decreased PO intake. - resolved with fluids. Hypokalemia S/t decreased PO intake. - replete with IV KCl and monitor. Repeat BMP in AM. Sore throat Negative strep testing in ED. Possibly viral. - supportive care. Seems resolved. PPx: Lovenox Discharge Planning Awaiting improvement Problem Qualifiers (1) Sepsis: Qualified Codes: A41.9 - Sepsis, unspecified organism (2) UTI (urinary tract infection): Qualified Codes: N39.0 - Urinary tract infection, site not specified; R31.9 - Hematuria, unspecified Luis F Grier DO Dec 15, 2016 11:42
[2016-12-15 12:00] VITALS: BP 123/66; PULSE 74; RESP 19; TEMP 96.9; O2SAT 98
[2016-12-15] MEDS: POTASSIUM CHLOR 20 MEQ PREMIX 100 ML IV SCH ×2 (12:36→15:25)
--- NOTE | 2016-12-15 14:47 | RADRPT ---
EXAM DATE/TIME: 12/15/2016 09:19 [place] COMPARISON: No previous studies available for comparison. INDICATIONS : Abdominal pain, nausea and vomiting. DOSE: 1.0 mCi Tc99m Sulfur Colloid Labeled Whole egg PO MEDICATONS: 1.) 5 mg Reglan IV at 90 minutes IMAGIN hrs MEDICAL HISTORY : None SURGICAL HISTORY : Right knee. ENCOUNTER: Initial ACUITY: 1 day PAIN SCALE: 2/10 LOCATION: Bilateral Abdomen. TECHNIQUE: Following the oral ingestion of radiotracer-labeled meal, dynamic sequential images in the TELUGU projec tion were acquired with simultaneous computer acquisition. The data set was decay-corrected. FINDINGS: LAG PHASE: There is 60 minutes before onset of gastric emptying. EMPTYING: Gastric emptying kinetics are linear. The decay-corrected, back-extrapolated half-time of emptying i s 120 minutes. (Normal for this lab is 45- 90 minutes.) INTERVENTION: Reglan has only minimal effect on gastric kinetics CONCLUSION: 1. Markedly prolonged gastric emptying with 60 minute lag time Rosales Garza MD on December 15, 2016 at 14:36 Board Certified Radiologist. This report was verified electronically.
[2016-12-15] MEDS: PANTOPRAZOLE SODIUM 40 MG VIAL IV PUSH SCH (15:26)
[2016-12-15 16:00] VITALS: BP 148/95; PULSE 89; RESP 20; TEMP 96.9; O2SAT 99
[2016-12-15 20:00] VITALS: BP 119/74; PULSE 78; RESP 18; TEMP 96.7; O2SAT 99
[2016-12-16] VITALS: BP 122/74; PULSE 88; RESP 18; TEMP 98; O2SAT 95
[2016-12-16] MEDS: MORPHINE SULFATE 4 MG/ML INJ IV PUSH PRN ×5 (03:23→22:06)
[2016-12-16 04:00] VITALS: BP 127/86; PULSE 82; RESP 18; TEMP 97.2; O2SAT 96
[2016-12-16 08:00] VITALS: BP 115/78; PULSE 87; RESP 19; TEMP 97.4; O2SAT 96
[2016-12-16 08:05] LABS: ALKALINE PHOSPHATASE 83 U/L (45-117); TOTAL BILIRUBIN ADULT 0.4 MG/DL (0.2-1.0)
[2016-12-16] MEDS: ENOXAPARIN SODIUM 40 MG/0.4 ML SYRINGE SQ SCH (08:35)
[2016-12-16] MEDS: SODIUM CHLORIDE 0.9% FLUSH 10 ML FLUSH IV FLUSH SCH ×2 (08:36→22:09)
[2016-12-16 08:55] LABS: ALT (GPT) 140 U/L (12-78); ANION GAP 8 MEQ/L (5-15); AST (GOT) 89 U/L (15-37); BICARBONATE 24.8 MEQ/L (21.0-32.0); BLOOD UREA NITROGEN 14 MG/DL (7-18); CHLORIDE 103 MEQ/L (98-107); GLOMERULAR FILTRATION RATE 82 ML/MIN (>89); SODIUM (NA) 136 MEQ/L (136-145)
[2016-12-16 09:00] LABS: POTASSIUM 4.1 MEQ/L (3.5-5.1)
--- NOTE | 2016-12-16 10:13 | HHI.PR ---
Subjective Remarks The pt said he did well with the liquid diet. He wanted to know if his stomach condition was causing his pain. He would like to be treated for Chlamydia now, he believes he can tolerate the antibiotic. No other acute concerns. Objective Vitals Vital Signs Date Time Temp Pulse Resp B/P (MAP) Pulse Ox O2 Delivery O2 Flow Rate FiO2 12/16/16 08:00 97.4 87 19 115/78 (90) 96 12/16/16 04:00 97.2 82 18 127/86 (100) 96 12/16/16 00:00 98.0 88 18 122/74 (90) 95 12/15/16 20:00 96.7 78 18 119/74 (89) 99 12/15/16 17:08 18 12/15/16 16:00 96.9 89 20 148/95 (112) 99 12/15/16 12:00 96.9 74 19 123/66 (85) 98 I/O 12/15/16 12/15/16 12/15/16 12/16/16 12/16/16 12/16/16 07:00 15:00 23:00 07:00 15:00 23:00 Intake Total 240 ml 0 ml 0 ml 720 ml 120 ml Output Total 600 ml 700 ml 200 ml Balance -360 ml 0 ml -700 ml 520 ml 120 ml Intake Oral 240 ml 0 ml 0 ml 720 ml 120 ml Output Urine Total 600 ml 700 ml 200 ml # Voids 2 # Bowel Movements 0 0 Result Diagram: 12/13/16 0602 12/16/16 0659 Imaging Last Impressions Gastric Emptying Nuclear Medicine 12/15/16 0000 Signed Impressions: Service Date/Time: Thursday, December 15, 2016 09:19 - CONCLUSION: 1. Markedly prolonged gastric emptying with 60 minute lag time Rosales Garza MD Chest X-Ray 12/10/16 0000 Signed Impressions: Service Date/Time: Saturday, December 10, 2016 19:21 - CONCLUSION: No acute disease. Daren Harmon MD Abdomen/Pelvis CT 12/10/16 0000 Signed Impressions: Service Date/Time: Saturday, December 10, 2016 20:10 - CONCLUSION: 1. Enlarged fatty liver. 2. Two tiny subcentimeter left renal cysts. Daren Harmon MD Objective Remarks GENERAL: Resting in bed. SKIN: No rashes, ecchymoses or lesions. Cool and dry. Pale. HEAD: Atraumatic. Normocephalic. EYES: No scleral icterus. No injection or drainage. ENT: Nose without bleeding, purulent drainage or septal hematoma. Airway patent. NECK: Trachea midline. No JVD or lymphadenopathy. Supple, nontender, no meningeal signs. CARDIOVASCULAR: Regular rate and rhythm without murmurs, gallops, or rubs. RESPIRATORY: Clear to auscultation. Breath sounds equal bilaterally. No wheezes , rales, or rhonchi. GASTROINTESTINAL: Abdomen soft, tender in the lower quadrants. No hepato- splenomegaly, or palpable masses. No guarding. MUSCULOSKELETAL: Extremities without clubbing, cyanosis, or edema. NEUROLOGICAL: Awake and alert. Normal speech. PSYCH: Mood and affect appropriate. Procedures EGD Medications and IVs Current Medications Medications (Trade) Dose Ordered Sig/Ramesh Route Start Time Stop Time Status Last Admin (NS Flush) 2 ml UNSCH PRN IV FLUSH 12/10/16 21:30 12/12/16 14:55 (NS Flush) 2 ml BID IV FLUSH 12/11/16 09:00 12/16/16 08:36 (Zofran Inj) 4 mg Q6H PRN IVP 12/10/16 21:30 12/11/16 20:22 (Narcan Inj) 0.4 mg UNSCH PRN IV PUSH 12/10/16 21:30 (Lovenox Inj) 40 mg Q24H SQ 12/11/16 09:00 12/16/16 08:35 (Morphine Inj) 2 mg Q4H PRN IV PUSH 12/11/16 14:15 12/16/16 08:35 (Morphine Inj) 2 mg Q4H PRN IV PUSH 12/11/16 14:15 (Protonix Inj) 40 mg Q24H IV PUSH 12/11/16 15:00 12/15/16 15:26 (Tylenol) 650 mg Q4H PRN PO 12/11/16 23:15 A/P Problem List: (1) Sepsis ICD Code: A41.9 - Sepsis, unspecified organism Status: Acute (2) UTI (urinary tract infection) ICD Code: N39.0 - Urinary tract infection, site not specified Status: Acute (3) CHIDI (acute kidney injury) ICD Code: N17.9 - Acute kidney failure, unspecified Status: Acute (4) Hypocalcemia ICD Code: E83.51 - Hypocalcemia Status: Acute (5) Sore throat ICD Code: J02.9 - Acute pharyngitis, unspecified (6) Nausea & vomiting ICD Code: R11.2 - Nausea with vomiting, unspecified Assessment and Plan SIRS WBC 21.3 with neutrophilia; lactic acid 3.4. UA suggestive of possible UTI, but urine culture was negative. UA did have blood in it. No dysuria. Repeat UA unremarkable. Negative CXR and negative for Flu A and B nasal washing Chlamydia probe was positive. Leukocytosis improved. Blood cultures negative. - d/c vancomycin and Zosyn and monitor. Abdominal pain/ Gastroparesis Abdomen/Pelvis CT: enlarged, fatty liver; two tiny subcentimeter left renal cysts. The pt is still unable to eat. GI consult appreciated. EGD with mild gastritis and duodenitis. Currently afebrile and without leukocytosis. Hemoccult negative. Gastric emptying study with prolonged gastric emptying. 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 - Zofran 4mg IV q6h PRN n/v. - IV PPI. - pain control as needed. - follow up with GI. - standing Reglan on d/c. Elevated LFTs CT did show fatty liver. - hepatitis profile pending. - check lipid panel. - trend LFTs. Chlamydia The pt tested positive for chlamydia. - azithromycin 1000 mg x 1. CHIDI S/t decreased PO intake. - resolved with fluids. Hypokalemia S/t decreased PO intake. - replete with IV KCl and monitor. Resolved 12/16. Sore throat Negative strep testing in ED. Possibly viral. - supportive care. Seems resolved. PPx: Lovenox Discharge Planning Awaiting improved PO intake, GI clearance. Anticipate 1-2 days Problem Qualifiers (1) Sepsis: Qualified Codes: A41.9 - Sepsis, unspecified organism (2) UTI (urinary tract infection): Qualified Codes: N39.0 - Urinary tract infection, site not specified; R31.9 - Hematuria, unspecified Luis F Grier DO Dec 16, 2016 10:13
[2016-12-16] MEDS ORDERED: AZITHROMYCIN PWD FOR SUSP 1 GM PACKET PO ONE (10:15)
[2016-12-16 12:00] VITALS: BP 132/93; PULSE 82; RESP 20; TEMP 97.6; O2SAT 98
[2016-12-16 12:10] LABS: HDL CHOLESTEROL 33.3 MG/DL (40.0-60.0)
[2016-12-16] MEDS: SODIUM CHLORIDE 0.9% FLUSH 10 ML FLUSH IV FLUSH PRN (12:59)
[2016-12-16] MEDS: PANTOPRAZOLE SODIUM 40 MG VIAL IV PUSH SCH (14:50)
--- NOTE | 2016-12-16 15:50 | HHI.GIFU ---
Subjective Remarks REsting in bed in NAD. Still with n/v if he eats. tolerates liquids. Says he has loose stool and lower abd pain when he eats. Objective Vitals I&O Vital Signs Date Time Temp Pulse Resp B/P (MAP) Pulse Ox O2 Delivery O2 Flow Rate FiO2 12/16/16 12:00 97.6 82 20 132/93 (106) 98 12/16/16 08:00 97.4 87 19 115/78 (90) 96 12/16/16 04:00 97.2 82 18 127/86 (100) 96 12/16/16 00:00 98.0 88 18 122/74 (90) 95 12/15/16 20:00 96.7 78 18 119/74 (89) 99 12/15/16 17:08 18 12/15/16 16:00 96.9 89 20 148/95 (112) 99 I/O 12/15/16 12/15/16 12/15/16 12/16/16 12/16/16 12/16/16 07:00 15:00 23:00 07:00 15:00 23:00 Intake Total 240 ml 0 ml 0 ml 720 ml 120 ml Output Total 600 ml 700 ml 200 ml Balance -360 ml 0 ml -700 ml 520 ml 120 ml Intake Oral 240 ml 0 ml 0 ml 720 ml 120 ml Output Urine Total 600 ml 700 ml 200 ml # Voids 2 # Bowel Movements 0 0 Laboratory Laboratory Tests Test 12/16/16 06:59 Blood Urea Nitrogen 14 Creatinine 1.10 Random Glucose 92 Total Protein 7.6 Albumin 3.4 Calcium Level 8.9 Alkaline Phosphatase 83 Aspartate Amino Transf (AST/SGOT) 89 Alanine Aminotransferase (ALT/SGPT) 140 Total Bilirubin 0.4 Sodium Level 136 Potassium Level 4.1 Chloride Level 103 Carbon Dioxide Level 24.8 Anion Gap 8 Estimat Glomerular Filtration Rate 82 Triglycerides Level 271 Cholesterol Level 208 LDL Cholesterol 121 HDL Cholesterol 33.3 Cholesterol/HDL Ratio 6.24 Hepatitis A IgM Antibody NEGATIVE Hepatitis B Surface Antigen NEGATIVE Hepatitis B Core IgM Antibody NEGATIVE Hepatitis C Antibody NEGATIVE Date/Time Source Procedure Growth Status 12/10/16 20:28 Blood Peripheral Aerobic Blood Culture - Final NO GROWTH IN 5 DAYS Complete 12/10/16 20:28 Blood Peripheral Anaerobic Blood Culture - Final NO GROWTH IN 5 DAYS Complete 12/14/16 12:35 Stool Stool Stool Occult Blood (MARIANO) - Final HEMOCCULT NEGATIVE Complete 12/10/16 19:20 Throat Group A Streptococcus Screen - Final NO GP A BETA STREP ISOLATED. Complete 12/10/16 19:15 Urine Clean Catch Urine Culture - Final NO GROWTH IN 48 HOURS. Complete Imaging Last Impressions Gastric Emptying Nuclear Medicine 12/15/16 0000 Signed Impressions: Service Date/Time: Thursday, December 15, 2016 09:19 - CONCLUSION: 1. Markedly prolonged gastric emptying with 60 minute lag time Rosales Garza MD Chest X-Ray 12/10/16 0000 Signed Impressions: Service Date/Time: Saturday, December 10, 2016 19:21 - CONCLUSION: No acute disease. Daren Harmon MD Abdomen/Pelvis CT 12/10/16 0000 Signed Impressions: Service Date/Time: Saturday, December 10, 2016 20:10 - CONCLUSION: 1. Enlarged fatty liver. 2. Two tiny subcentimeter left renal cysts. Daren Harmon MD Physical Exam HEAD: Normocephalic CHEST: Resp. even/unlabored ABDOMEN: soft, nontender, BS+ EXTREMITIES: No clubbing, cyanosis, or edema. SKIN: Normal; no rash; no jaundice. DIFFUSER OPERATOR: No focal deficits; alert and oriented x 3 Assessment and Plan Plan ASSESSMENT: - Melena, n/v/heartburn and black tarry stools. S/P EGD (12/12/16)----> Mild gastritis, mild duodenitis. Pathology pending. HH Stable PPI - N/V, Abdominal pain, Melena. Pt reports 2 day hx of n/v/abdominal pain and then started having melena. He was seen in April of 2016 for n/v and it was thought that his symptoms were related to his MJ use at that time. He no longer uses marijuana and his toxicology was negative. He denies any hx of PUD. Has never had previous EGD. Denies the use of NSAIDs. CT Scan abdomen and pelvis (12/10/16)---> Enlarged fatty liver, two tiny subcentimeter left renal cysts. EGD (12/12/16)--Mild gastritis, Mild duodenitis. Pathology acute duodenitis, superficial epithelial erosion. He continues to have nausea, difficulty tolerating po and lower abdominal cramping when he tries to eat. GES showed marked delay, minimal response to reglan. - Abn. U/A, Cx negative. - Fever. BCx no growth 4 days. Afebrile. - Chlamydia infection s/p azithromycin. Per attending. PLAN: - consider colonoscopy - trial bentyl - could consider EES - Continue PPI - Monitor labs - Supportive care - Further recommendations to follow based on results of above - Patient seen and examined by Dr. Seals and myself and this note is written on his behalf. Shauna Dubois Dec 16, 2016 15:50
[2016-12-16 16:00] VITALS: BP 124/79; PULSE 88; RESP 19; TEMP 96.9; O2SAT 99
[2016-12-16] MEDS: DICYCLOMINE HCL 20 MG TAB PO SCH (17:53)
[2016-12-16 20:00] VITALS: BP 127/76; PULSE 93; RESP 20; TEMP 97.7; O2SAT 98
[2016-12-17] VITALS (7 sets, daily range): BP systolic 117–138; BP diastolic 71–89; PULSE 69–100; RESP 16–20; TEMP 96.9–98.4; O2SAT 96–99
[2016-12-17] MEDS: MORPHINE SULFATE 4 MG/ML INJ IV PUSH PRN ×3 (05:40→13:27)
[2016-12-17 07:27] LABS: ALKALINE PHOSPHATASE 88 U/L (45-117); TOTAL BILIRUBIN ADULT 0.3 MG/DL (0.2-1.0)
[2016-12-17 07:40] LABS: ALT (GPT) 128 U/L (12-78); ANION GAP 10 MEQ/L (5-15); AST (GOT) 62 U/L (15-37); BICARBONATE 24.4 MEQ/L (21.0-32.0); BLOOD UREA NITROGEN 13 MG/DL (7-18); CHLORIDE 102 MEQ/L (98-107); GLOMERULAR FILTRATION RATE 81 ML/MIN (>89); SODIUM (NA) 136 MEQ/L (136-145)
[2016-12-17] MEDS: SODIUM CHLORIDE 0.9% FLUSH 10 ML FLUSH IV FLUSH SCH ×2 (09:00→20:49)
[2016-12-17] MEDS: DICYCLOMINE HCL 20 MG TAB PO SCH ×3 (09:19→17:22)
[2016-12-17] MEDS: ENOXAPARIN SODIUM 40 MG/0.4 ML SYRINGE SQ SCH (09:19)
--- NOTE | 2016-12-17 11:06 | HHI.GIFU ---
Subjective Remarks Resting in bed. Tolerated clears last night, but had nausea this am so quit. No vomiting. Mild lower abdominal abdominal discomfort and some right sided abdominal discomfort after eating. Loose stools after meals. (Ana Hoffmann) Objective Vitals I&O Vital Signs Date Time Temp Pulse Resp B/P (MAP) Pulse Ox O2 Delivery O2 Flow Rate FiO2 12/17/16 09:43 16 12/17/16 08:00 96.9 84 19 119/71 (87) 97 12/17/16 06:02 100 12/17/16 04:00 97.4 81 18 117/81 (93) 96 12/17/16 00:00 98.4 80 18 127/86 (100) 97 12/16/16 20:00 97.7 93 20 127/76 (93) 98 12/16/16 16:00 96.9 88 19 124/79 (94) 99 12/16/16 12:00 97.6 82 20 132/93 (106) 98 I/O 12/16/16 12/16/16 12/16/16 12/17/16 12/17/16 12/17/16 07:00 15:00 23:00 07:00 15:00 23:00 Intake Total 720 ml 120 ml 750 ml 840 ml 240 ml Output Total 200 ml 900 ml 250 ml Balance 520 ml 120 ml -150 ml 590 ml 240 ml Intake Oral 720 ml 120 ml 750 ml 840 ml 240 ml Output Urine Total 200 ml 900 ml 250 ml # Voids 2 2 # Bowel Movements 0 0 0 Laboratory Laboratory Tests Test 12/17/16 05:48 Blood Urea Nitrogen 13 Creatinine 1.11 Random Glucose 96 Total Protein 7.9 Albumin 3.6 Calcium Level 9.3 Alkaline Phosphatase 88 Aspartate Amino Transf (AST/SGOT) 62 Alanine Aminotransferase (ALT/SGPT) 128 Total Bilirubin 0.3 Sodium Level 136 Potassium Level 4.0 Chloride Level 102 Carbon Dioxide Level 24.4 Anion Gap 10 Estimat Glomerular Filtration Rate 81 Date/Time Source Procedure Growth Status 12/10/16 20:28 Blood Peripheral Aerobic Blood Culture - Final NO GROWTH IN 5 DAYS Complete 12/10/16 20:28 Blood Peripheral Anaerobic Blood Culture - Final NO GROWTH IN 5 DAYS Complete 12/14/16 12:35 Stool Stool Stool Occult Blood (MARIANO) - Final HEMOCCULT NEGATIVE Complete 12/10/16 19:20 Throat Group A Streptococcus Screen - Final NO GP A BETA STREP ISOLATED. Complete 12/10/16 19:15 Urine Clean Catch Urine Culture - Final NO GROWTH IN 48 HOURS. Complete Imaging Last Impressions Gastric Emptying Nuclear Medicine 12/15/16 0000 Signed Impressions: Service Date/Time: Thursday, December 15, 2016 09:19 - CONCLUSION: 1. Markedly prolonged gastric emptying with 60 minute lag time Rosales Garza MD Chest X-Ray 12/10/16 0000 Signed Impressions: Service Date/Time: Saturday, December 10, 2016 19:21 - CONCLUSION: No acute disease. Daren Harmon MD Abdomen/Pelvis CT 12/10/16 0000 Signed Impressions: Service Date/Time: Saturday, December 10, 2016 20:10 - CONCLUSION: 1. Enlarged fatty liver. 2. Two tiny subcentimeter left renal cysts. Daren Harmon MD Physical Exam HEAD: Normocephalic CHEST: Resp. even/unlabored ABDOMEN: soft, nontender, BS+ EXTREMITIES: No clubbing, cyanosis, or edema. SKIN: Normal; no rash; no jaundice. ON SITE SOIL EVALUATOR: No focal deficits; alert and oriented x 3 (Ana Hoffmann) Assessment and Plan Plan ASSESSMENT: - Melena, n/v/heartburn and black tarry stools. S/P EGD (12/12/16)----> Mild gastritis, mild duodenitis. Pathology acute duodenitis and features of superficial erosion, gastric antral mucosa with superficial epithelial erosion. HH Stable PPI - N/V, Abdominal pain. He was seen in April of 2016 for n/v and it was thought that his symptoms were related to his MJ use at that time. He no longer uses marijuana and his toxicology was negative. He denies any hx of PUD. Denies the use of NSAIDs. CT Scan abdomen and pelvis (12/10/16)---> Enlarged fatty liver, two tiny subcentimeter left renal cysts. EGD (12/12/16)--Mild gastritis, Mild duodenitis. Pathology acute duodenitis, superficial epithelial erosion. GES (12/15/16)---> Markedly prolonted gastric emptying with 60 minute lag time. Unclear if he has true gastroparesis or if this is medication induced secondary to narcotics. Will add trial of Bethanechol. Soft diet, small frequent meals, chew food well, small bites. Bentyl prn. - Diarrhea, several loose stools usually after meals. Likely related to impaired gastric emptying, but will check stool for CDiff. - Abn. U/A, Cx negative. - Fever. BCx no growth 5 days. Afebrile. - Chlamydia infection s/p azithromycin. PLAN: - Soft diet - Small frequent meals - Chew food well - Small bites - Trial of Bethanechol - Cont. PPI - Cont. Bentyl prn - CDiff PCR - Supportive care - Okay to d/c home when tolerating diet and CDiff negative - Patient seen and examined by Dr. Seals and myself and this note is written on his behalf. (Ana Hoffmann) Plan Patient was seen and examined, agree with above-noted, S2 produces most likely narcotic induced, advance diet as tolerated (Enrique Seals MD) Ana Hoffmann Dec 17, 2016 11:06 Enrique Seals MD Dec 17, 2016 15:30
--- NOTE | 2016-12-17 11:28 | HHI.PR ---
Subjective Remarks The pt ate chicken noodle soup last night. Has increased abdominal pain with eating, worse on the right sided. Has been having diarrhea. Hoping to be able to go home tomorrow. Seen with GI at the bedside. Objective Vitals Vital Signs Date Time Temp Pulse Resp B/P (MAP) Pulse Ox O2 Delivery O2 Flow Rate FiO2 12/17/16 09:43 16 12/17/16 08:00 96.9 84 19 119/71 (87) 97 12/17/16 06:02 100 12/17/16 04:00 97.4 81 18 117/81 (93) 96 12/17/16 00:00 98.4 80 18 127/86 (100) 97 12/16/16 20:00 97.7 93 20 127/76 (93) 98 12/16/16 16:00 96.9 88 19 124/79 (94) 99 12/16/16 12:00 97.6 82 20 132/93 (106) 98 I/O 12/16/16 12/16/16 12/16/16 12/17/16 12/17/16 12/17/16 07:00 15:00 23:00 07:00 15:00 23:00 Intake Total 720 ml 120 ml 750 ml 840 ml 240 ml Output Total 200 ml 900 ml 250 ml Balance 520 ml 120 ml -150 ml 590 ml 240 ml Intake Oral 720 ml 120 ml 750 ml 840 ml 240 ml Output Urine Total 200 ml 900 ml 250 ml # Voids 2 2 # Bowel Movements 0 0 0 Result Diagram: 12/13/16 0602 12/17/16 0548 Imaging Last Impressions Gastric Emptying Nuclear Medicine 12/15/16 0000 Signed Impressions: Service Date/Time: Thursday, December 15, 2016 09:19 - CONCLUSION: 1. Markedly prolonged gastric emptying with 60 minute lag time Rosales Garza MD Chest X-Ray 12/10/16 0000 Signed Impressions: Service Date/Time: Saturday, December 10, 2016 19:21 - CONCLUSION: No acute disease. Daren Harmon MD Abdomen/Pelvis CT 12/10/16 0000 Signed Impressions: Service Date/Time: Saturday, December 10, 2016 20:10 - CONCLUSION: 1. Enlarged fatty liver. 2. Two tiny subcentimeter left renal cysts. Daren Harmon MD Objective Remarks GENERAL: Resting in bed. SKIN: No rashes, ecchymoses or lesions. Cool and dry. Pale. HEAD: Atraumatic. Normocephalic. EYES: No scleral icterus. No injection or drainage. ENT: Nose without bleeding, purulent drainage or septal hematoma. Airway patent. NECK: Trachea midline. No JVD or lymphadenopathy. Supple, nontender, no meningeal signs. CARDIOVASCULAR: Regular rate and rhythm without murmurs, gallops, or rubs. RESPIRATORY: Clear to auscultation. Breath sounds equal bilaterally. No wheezes , rales, or rhonchi. GASTROINTESTINAL: Abdomen soft, nontender. No hepato-splenomegaly, or palpable masses. No guarding. MUSCULOSKELETAL: Extremities without clubbing, cyanosis, or edema. NEUROLOGICAL: Awake and alert. Normal speech. PSYCH: Mood and affect appropriate. Procedures EGD Medications and IVs Current Medications Medications (Trade) Dose Ordered Sig/Ramesh Route Start Time Stop Time Status Last Admin (NS Flush) 2 ml UNSCH PRN IV FLUSH 12/10/16 21:30 12/16/16 12:59 (NS Flush) 2 ml BID IV FLUSH 12/11/16 09:00 12/17/16 09:00 (Zofran Inj) 4 mg Q6H PRN IVP 12/10/16 21:30 12/11/16 20:22 (Narcan Inj) 0.4 mg UNSCH PRN IV PUSH 12/10/16 21:30 (Lovenox Inj) 40 mg Q24H SQ 12/11/16 09:00 12/17/16 09:19 (Morphine Inj) 2 mg Q4H PRN IV PUSH 12/11/16 14:15 12/17/16 09:38 (Morphine Inj) 2 mg Q4H PRN IV PUSH 12/11/16 14:15 (Protonix Inj) 40 mg Q24H IV PUSH 12/11/16 15:00 12/16/16 14:50 (Tylenol) 650 mg Q4H PRN PO 12/11/16 23:15 (Bentyl) 20 mg TID PO 12/16/16 18:00 12/17/16 09:19 (Urecholine) 25 mg Q8HR PO 12/17/16 14:00 A/P Problem List: (1) Sepsis ICD Code: A41.9 - Sepsis, unspecified organism Status: Acute (2) UTI (urinary tract infection) ICD Code: N39.0 - Urinary tract infection, site not specified Status: Acute (3) CHIDI (acute kidney injury) ICD Code: N17.9 - Acute kidney failure, unspecified Status: Acute (4) Hypocalcemia ICD Code: E83.51 - Hypocalcemia Status: Acute (5) Sore throat ICD Code: J02.9 - Acute pharyngitis, unspecified (6) Nausea & vomiting ICD Code: R11.2 - Nausea with vomiting, unspecified Assessment and Plan Abdominal pain/ Gastroparesis Abdomen/Pelvis CT: enlarged, fatty liver; two tiny subcentimeter left renal cysts. The pt is still unable to eat. GI consult appreciated. EGD with mild gastritis and duodenitis. Currently afebrile and without leukocytosis. Hemoccult negative. Gastric emptying study with prolonged gastric emptying. - packaging technician consult requested for recommendations on diet. - Zofran 4mg IV q6h PRN n/v. - IV PPI. - pain control as needed. - follow up with GI. Bethanechol and Bentyl started. Diarrhea The pt complains of multiple bowel movements daily. - C diff PCR ordered by GI. SIRS WBC 21.3 with neutrophilia; lactic acid 3.4. UA suggestive of possible UTI, but urine culture was negative. UA did have blood in it. No dysuria. Repeat UA unremarkable. Negative CXR and negative for Flu A and B nasal washing Chlamydia probe was positive. Leukocytosis improved. Blood cultures negative. - d/c vancomycin and Zosyn and monitor. Elevated LFTs CT did show fatty liver. Hepatitis profile negative. - trend LFTs. Chlamydia The pt tested positive for chlamydia. - azithromycin 1000 mg x 1. CHIDI S/t decreased PO intake. - resolved with fluids. Hypokalemia S/t decreased PO intake. - replete with IV KCl and monitor. Resolved 12/16. Sore throat Negative strep testing in ED. Possibly viral. - supportive care. Resolved. PPx: Lovenox Discharge Planning Awaiting improved PO intake, C diff PCR results. Anticipate d/c in AM. Problem Qualifiers (1) Sepsis: Qualified Codes: A41.9 - Sepsis, unspecified organism (2) UTI (urinary tract infection): Qualified Codes: N39.0 - Urinary tract infection, site not specified; R31.9 - Hematuria, unspecified Luis F Grier DO Dec 17, 2016 11:28
--- NOTE | 2016-12-17 11:29 | HHI.DCPOC ---
Discharge Care Plan Diagnosis: (1) Gastroparesis (2) Chlamydia (3) CHIDI (acute kidney injury) (4) Sore throat (5) Intractable vomiting with nausea (6) Hypokalemia Goals to Promote Your Health * To prevent worsening of your condition and complications * To maintain your health at the optimal level Directions to Meet Your Goals Take your medications as prescribed Follow your dietary instruction Follow activity as directed Keep your appointments as scheduled Take your immunizations and boosters as scheduled If your symptoms worsen call your PCP, if no PCP go to Urgent Care Center or Emergency Room Smoking is Dangerous to Your Health. Avoid second hand smoke Call the 24-hour hour crisis hotline for domestic abuse at Luis F Grier DO Dec 17, 2016 11:29
[2016-12-17] MEDS: BETHANECHOL CHL 25 MG TAB PO SCH ×2 (13:25→20:49)
[2016-12-17] MEDS: PANTOPRAZOLE SODIUM 40 MG VIAL IV PUSH SCH (13:25)
--- NOTE | 2016-12-17 15:20 | HHI.DS ---
Discharge Summary Admission Date Dec 10, 2016 at 21:10 Discharge Date: Dec 18, 2016 Admitting Diagnosis SEPSIS, UTI, HYPOCALCEMIA, CHIDI (1) Sepsis ICD Code: A41.9 - Sepsis, unspecified organism Status: Acute (2) UTI (urinary tract infection) ICD Code: N39.0 - Urinary tract infection, site not specified Status: Acute (3) CHIDI (acute kidney injury) ICD Code: N17.9 - Acute kidney failure, unspecified Status: Acute (4) Hypocalcemia ICD Code: E83.51 - Hypocalcemia Status: Acute (5) Sore throat ICD Code: J02.9 - Acute pharyngitis, unspecified (6) Nausea & vomiting ICD Code: R11.2 - Nausea with vomiting, unspecified Diagnosis: Principal (7) Gastroparesis ICD Code: K31.84 - Gastroparesis Diagnosis: Principal (8) Chlamydia ICD Code: A74.9 - Chlamydial infection, unspecified Procedures EGD Brief History - From Admission Written by Nadia Hu, acting as scribe for Dr. Torre on 12/11/16 at 02:36. Fevers for two days. Highest 102 degrees. Complains of nausea/vomiting - up to 5 times per day Denies red emesis Complaining of severely sore throat Denies dysuria, hematuria, black or red stool, abdominal pain The patient is irritable with the history taking process and complains that he' s already answered these questions two times during interview. He had a similar admission April of this year though he also had chest pain during that admission CBC/BMP: 12/13/16 0602 12/17/16 0548 Significant Findings Laboratory Tests Test 12/15/16 04:46 12/16/16 06:59 12/17/16 05:48 Sodium Level 134 MEQ/L (136-145) Potassium Level 3.4 MEQ/L (3.5-5.1) Aspartate Amino Transf (AST/SGOT) 89 U/L (15-37) 62 U/L (15-37) Alanine Aminotransferase (ALT/SGPT) 140 U/L (12-78) 128 U/L (12-78) Estimat Glomerular Filtration Rate 82 ML/MIN (>89) 81 ML/MIN (>89) Triglycerides Level 271 MG/DL (42-150) Cholesterol Level 208 MG/DL (120-200) LDL Cholesterol 121 MG/DL (0-99) HDL Cholesterol 33.3 MG/DL (40.0-60.0) Imaging Last Impressions Gastric Emptying Nuclear Medicine 12/15/16 Signed Impressions: Service Date/Time: Thursday, December 15, 2016 09:19 - CONCLUSION: 1. Markedly prolonged gastric emptying with 60 minute lag time Rosales Garza MD Chest X-Ray 12/10/16 Signed Impressions: Service Date/Time: Saturday, December 10, 2016 19:21 - CONCLUSION: No acute disease. Daren Harmon MD Abdomen/Pelvis CT 12/10/16 0000 Signed Impressions: Service Date/Time: Saturday, December 10, 2016 20:10 - CONCLUSION: 1. Enlarged fatty liver. 2. Two tiny subcentimeter left renal cysts. Daren Harmon MD PE at Discharge GENERAL: Resting in bed. SKIN: No rashes, ecchymoses or lesions. Cool and dry. Pale. HEAD: Atraumatic. Normocephalic. EYES: No scleral icterus. No injection or drainage. ENT: Nose without bleeding, purulent drainage or septal hematoma. Airway patent. NECK: Trachea midline. No JVD or lymphadenopathy. Supple, nontender, no meningeal signs. CARDIOVASCULAR: Regular rate and rhythm without murmurs, gallops, or rubs. RESPIRATORY: Clear to auscultation. Breath sounds equal bilaterally. No wheezes , rales, or rhonchi. GASTROINTESTINAL: Abdomen soft, nontender. No hepato-splenomegaly, or palpable masses. No guarding. MUSCULOSKELETAL: Extremities without clubbing, cyanosis, or edema. NEUROLOGICAL: Awake and alert. Normal speech. PSYCH: Mood and affect appropriate. Hospital Course Abdominal pain/ Gastroparesis Abdomen/Pelvis CT: enlarged, fatty liver; two tiny subcentimeter left renal cysts. GI was consulted. EGD with mild gastritis and duodenitis. Pathology noted. Currently afebrile and without leukocytosis. Hemoccult negative. Gastric emptying study with prolonged gastric emptying. 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 He will start 4-5 small, low fat, high fiber meals daily. He received antiemetics as needed. He was continued on a PPI. He received pain control as needed. GI started bethanechol and Bentyl. He will follow up with GI as an outpt. Diarrhea The pt complained of multiple bowel movements daily. C diff PCR was ordered by GI. SIRS WBC 21.3 with neutrophilia; lactic acid 3.4 on admission. UA suggestive of possible UTI, but urine culture was negative. UA did have blood in it. No dysuria. Repeat UA unremarkable. Negative CXR and negative for Flu A and B nasal washing. Chlamydia probe was positive. Leukocytosis improved. Blood cultures were negative. We d/c vancomycin and Zosyn and monitored. Resolved. Elevated LFTs CT did show fatty liver. Hepatitis profile negative. He will follow up with GI as an outpt. Chlamydia The pt tested positive for chlamydia. S/p azithromycin 1000 mg x 1. CHIDI S/t decreased PO intake. Resolved with fluids. Hypokalemia S/t decreased PO intake. He received repletion with IV KCl. Resolved with improved PO intake. Pt Condition on Discharge: Stable Discharge Disposition: Discharge Home Discharge Time: > 30 minutes Discharge Instructions Follow up Referrals: Gastroenterology - 2 Weeks @ [facility] PCP Follow-up - 1 Week Medication Profile: No Active Prescriptions or Reported Meds Luis F Grier DO Dec 17, 2016 15:20
[2016-12-18] VITALS: BP 133/82; PULSE 82; RESP 16; TEMP 96.7; O2SAT 97
[2016-12-18] MEDS: BETHANECHOL CHL 25 MG TAB PO SCH ×2 (05:50→14:01)
[2016-12-18 08:00] VITALS: BP 119/82; PULSE 89; RESP 18; TEMP 96.7; O2SAT 96
[2016-12-18 08:28] LABS: ANION GAP 10 MEQ/L (5-15); AST (GOT) 51 U/L (15-37); BICARBONATE 24.3 MEQ/L (21.0-32.0); BLOOD UREA NITROGEN 20 MG/DL (7-18); CHLORIDE 101 MEQ/L (98-107); GLOMERULAR FILTRATION RATE 79 ML/MIN (>89); SODIUM (NA) 135 MEQ/L (136-145)
[2016-12-18 08:32] LABS: ALKALINE PHOSPHATASE 83 U/L (45-117); ALT (GPT) 117 U/L (12-78); TOTAL BILIRUBIN ADULT 0.4 MG/DL (0.2-1.0)
[2016-12-18] MEDS: ENOXAPARIN SODIUM 40 MG/0.4 ML SYRINGE SQ SCH (08:52)
[2016-12-18] MEDS: DICYCLOMINE HCL 20 MG TAB PO SCH ×2 (08:52→14:01)
[2016-12-18] MEDS: SODIUM CHLORIDE 0.9% FLUSH 10 ML FLUSH IV FLUSH SCH (08:52)
--- NOTE | 2016-12-18 11:02 | HHI.GIFU ---
Subjective Remarks Resting in bed. Nausea improved. Tolerating solid food- had chicken sandwich last night for dinner. Still with some lower abdominal/pelvic tenderness. (Ana Hoffmann) Objective Vitals I&O Vital Signs Date Time Temp Pulse Resp B/P (MAP) Pulse Ox O2 Delivery O2 Flow Rate FiO2 12/18/16 08:00 96.7 89 18 119/82 (94) 96 12/18/16 06:50 20 12/18/16 00:00 96.7 82 16 133/82 (99) 97 12/17/16 20:00 98.4 82 16 127/73 (91) 96 12/17/16 20:00 75 12/17/16 16:00 96.9 76 20 123/74 (90) 98 12/17/16 12:00 97.0 69 20 138/89 (105) 99 I/O 12/17/16 12/17/16 12/17/16 12/18/16 12/18/16 12/18/16 07:00 15:00 23:00 07:00 15:00 23:00 Intake Total 840 ml 240 ml 1000 ml 360 ml Output Total 250 ml 950 ml 350 ml Balance 590 ml 240 ml 50 ml 10 ml Intake Oral 840 ml 240 ml 1000 ml 360 ml Output Urine Total 250 ml 950 ml 350 ml # Voids 2 # Bowel Movements 0 0 0 Laboratory Laboratory Tests Test 12/18/16 05:56 Blood Urea Nitrogen 20 Creatinine 1.13 Random Glucose 84 Total Protein 8.0 Albumin 3.8 Calcium Level 9.6 Alkaline Phosphatase 83 Aspartate Amino Transf (AST/SGOT) 51 Alanine Aminotransferase (ALT/SGPT) 117 Total Bilirubin 0.4 Sodium Level 135 Potassium Level 4.0 Chloride Level 101 Carbon Dioxide Level 24.3 Anion Gap 10 Estimat Glomerular Filtration Rate 79 Date/Time Source Procedure Growth Status 12/10/16 20:28 Blood Peripheral Aerobic Blood Culture - Final NO GROWTH IN 5 DAYS Complete 12/10/16 20:28 Blood Peripheral Anaerobic Blood Culture - Final NO GROWTH IN 5 DAYS Complete 12/14/16 12:35 Stool Stool Stool Occult Blood (MARIANO) - Final HEMOCCULT NEGATIVE Complete 12/10/16 19:20 Throat Group A Streptococcus Screen - Final NO GP A BETA STREP ISOLATED. Complete 12/10/16 19:15 Urine Clean Catch Urine Culture - Final NO GROWTH IN 48 HOURS. Complete Imaging Last Impressions Gastric Emptying Nuclear Medicine 12/15/16 0000 Signed Impressions: Service Date/Time: Thursday, December 15, 2016 09:19 - CONCLUSION: 1. Markedly prolonged gastric emptying with 60 minute lag time Rosales Garza MD Chest X-Ray 12/10/16 0000 Signed Impressions: Service Date/Time: Saturday, December 10, 2016 19:21 - CONCLUSION: No acute disease. Daren Harmon MD Abdomen/Pelvis CT 12/10/16 0000 Signed Impressions: Service Date/Time: Saturday, December 10, 2016 20:10 - CONCLUSION: 1. Enlarged fatty liver. 2. Two tiny subcentimeter left renal cysts. Daren Harmon MD Physical Exam HEAD: Normocephalic CHEST: Resp. even/unlabored ABDOMEN: soft, nondistended, mild lower abdominal tenderness EXTREMITIES: No clubbing, cyanosis, or edema. SKIN: Normal; no rash; no jaundice. BIT WELDER: No focal deficits; alert and oriented x 3 (Ana Hoffmann) Assessment and Plan Plan SSESSMENT: - Melena, n/v/heartburn and black tarry stools. S/P EGD (12/12/16)----> Mild gastritis, mild duodenitis. Pathology acute duodenitis and features of superficial erosion, gastric antral mucosa with superficial epithelial erosion. HH Stable. PPI. No further episodes. - N/V, Abdominal pain. He was seen in April of 2016 for n/v and it was thought that his symptoms were related to his MJ use at that time. He no longer uses marijuana and his toxicology was negative. He denies any hx of PUD. Denies the use of NSAIDs. CT Scan abdomen and pelvis (12/10/16)---> Enlarged fatty liver, two tiny subcentimeter left renal cysts. EGD (12/12/16)--Mild gastritis, Mild duodenitis. Pathology acute duodenitis, superficial epithelial erosion. GES (12/15/16)---> Markedly prolonted gastric emptying with 60 minute lag time. Unclear if he has true gastroparesis or if this is medication induced secondary to narcotics. Will add trial of Bethanechol. Soft diet, small frequent meals, chew food well, small bites. Bethanechol. Bentyl prn. - Diarrhea, several loose stools usually after meals. Likely related to impaired gastric emptying, CDiff pcr ordered, but has not had any today. - Abn. U/A, Cx negative. - Fever. BCx no growth 5 days. Afebrile. - Chlamydia infection s/p azithromycin. PLAN: - Soft diet - Small frequent meals - Chew food well - Small bites - Trial of Bethanechol - Cont. PPI - Cont. Bentyl prn - Okay to d/c home from GI standpoint - FU BRUCE 2 weeks - GI will sign off, please reconsult as needed - Patient seen and examined by Dr. Seals and myself and this note is written on his behalf. (Ana Hoffmann) Plan Patient was seen and examined, agree with above note, patient is going home and follow as an outpatient, try to avoid pain medication (Enrique Seals MD) Ana Hoffmann Dec 18, 2016 11:02 Enrique Seals MD Dec 18, 2016 15:49
[2016-12-18 12:00] VITALS: BP 130/84; PULSE 78; RESP 18; TEMP 96.2; O2SAT 98
--- NOTE | 2016-12-18 12:00 | HHI.PR ---
Subjective Remarks Follow-up visit abdominal pain. Patient seen and examined today. Reports he is able to tolerate food slowly last night. States he continues to have abdominal pain but it has improved from prior. States that she has pain medication as been change yesterday and it's not working for him. Requesting to go home, but concerned about medications to he will need to take when going home. Discussed with patient that narcotics would not be good for his conditions especially with gastroparesis. Denies SOB/ dyspnea. Denies chest pain, palpitations, headaches, dizziness. Denies fevers, chills. Denies dysuria. Objective Vitals Vital Signs Date Time Temp Pulse Resp B/P (MAP) Pulse Ox O2 Delivery O2 Flow Rate FiO2 12/18/16 08:00 96.7 89 18 119/82 (94) 96 12/18/16 06:50 20 12/18/16 00:00 96.7 82 16 133/82 (99) 97 12/17/16 20:00 98.4 82 16 127/73 (91) 96 12/17/16 20:00 75 12/17/16 16:00 96.9 76 20 123/74 (90) 98 I/O 12/17/16 12/17/16 12/17/16 12/18/16 12/18/16 12/18/16 07:00 15:00 23:00 07:00 15:00 23:00 Intake Total 840 ml 240 ml 1000 ml 360 ml Output Total 250 ml 950 ml 350 ml Balance 590 ml 240 ml 50 ml 10 ml Intake Oral 840 ml 240 ml 1000 ml 360 ml Output Urine Total 250 ml 950 ml 350 ml # Voids 2 # Bowel Movements 0 0 0 Result Diagram: 12/18/16 0556 Imaging Last Impressions Gastric Emptying Nuclear Medicine 12/15/16 0000 Signed Impressions: Service Date/Time: Thursday, December 15, 2016 09:19 - CONCLUSION: 1. Markedly prolonged gastric emptying with 60 minute lag time Rosales Garza MD Chest X-Ray 12/10/16 0000 Signed Impressions: Service Date/Time: Saturday, December 10, 2016 19:21 - CONCLUSION: No acute disease. Daren Harmon MD Abdomen/Pelvis CT 12/10/16 0000 Signed Impressions: Service Date/Time: Wednesday, December 10, 2016 20:10 - CONCLUSION: 1. Enlarged fatty liver. 2. Two tiny subcentimeter left renal cysts. Daren Harmon MD Objective Remarks GENERAL: This is a well-nourished, well-developed patient, in no apparent distress. SKIN: Warm and dry. HEENT: Normocephalic. Pupils equal round and reactive. Nose without bleeding. Airway patent. NECK: Trachea midline. Supple. CARDIOVASCULAR: Regular rate and rhythm without murmurs, gallops, or rubs. RESPIRATORY: Clear to auscultation. Breath sounds equal bilaterally. No wheezes , rales, or rhonchi. GASTROINTESTINAL: Abdomen soft, nondistended. Bowel Sounds hypoactive. Mild tenderness to palpation generalized. MUSCULOSKELETAL: Extremities without clubbing, cyanosis, or edema. NEUROLOGICAL: Awake and alert. Oriented to time, place, person. No focal neuro deficit. Moves all extremities. Normal speech. Procedures EGD A/P Problem List: (1) Sepsis ICD Code: A41.9 - Sepsis, unspecified organism Status: Acute (2) UTI (urinary tract infection) ICD Code: N39.0 - Urinary tract infection, site not specified Status: Acute (3) CHIDI (acute kidney injury) ICD Code: N17.9 - Acute kidney failure, unspecified Status: Acute (4) Hypocalcemia ICD Code: E83.51 - Hypocalcemia Status: Acute (5) Sore throat ICD Code: J02.9 - Acute pharyngitis, unspecified (6) Nausea & vomiting ICD Code: R11.2 - Nausea with vomiting, unspecified (7) Gastroparesis ICD Code: K31.84 - Gastroparesis (8) Chlamydia ICD Code: A74.9 - Chlamydial infection, unspecified Assessment and Plan Patient is a 26-year-old male who came in to the hospital secondary to complaints of nausea vomiting and fever. Abdominal pain/ Gastroparesis Abdomen/Pelvis CT: enlarged, fatty liver; two tiny subcentimeter left renal cysts. GI was consulted. EGD with mild gastritis and duodenitis. Pathology noted. Currently afebrile and without leukocytosis. Hemoccult negative. Gastric emptying study with prolonged gastric emptying. Youth Specialist consult was requested for recommendations on diet. He will start 4- 5 small, low fat, high fiber meals daily. Antiemetics as needed. Continued on a PPI. He received pain control as needed. GI started bethanechol and Bentyl. He will follow up with GI as an outpatient. Discussed extensively with patient. Elevated LDL Low fat diet. Lifestyle change. Follow up with PCP Diarrhea The pt complained of multiple bowel movements daily. C diff PCR was ordered by GI. SIRS WBC 21.3 with neutrophilia; lactic acid 3.4 on admission. UA suggestive of possible UTI, but urine culture was negative. UA did have blood in it. No dysuria. Repeat UA unremarkable. Negative CXR and negative for Flu A and B nasal washing. Chlamydia probe was positive. Leukocytosis improved. Blood cultures were negative. We d/c vancomycin and Zosyn and monitored. Resolved. Elevated LFTs CT did show fatty liver. Hepatitis profile negative. He will follow up with GI as an outpt. Chlamydia The pt tested positive for chlamydia. S/p azithromycin 1000 mg x 1. Resolved. CHIDI S/t decreased PO intake. Resolved with fluids. Hypokalemia S/t decreased PO intake. He received repletion with IV KCl. Resolved with improved PO intake. DVT prop ambulatory. Patient cleared by GI to be home today with follow up visit. Recommended medications in place. Bethanecol 25 mg every 8 hours Dicyclomine 20 mg by mouth 3 times a day Zofran 4 mg every 6 hours when necessary for nausea vomiting Pantoprazole 40 mg daily Patient will follow up with GI in 2 weeks. Patient will also follow-up with PCP in one week. Discharge Planning DC home today. Problem Qualifiers (1) Sepsis: Qualified Codes: A41.9 - Sepsis, unspecified organism (2) UTI (urinary tract infection): Qualified Codes: N39.0 - Urinary tract infection, site not specified; R31.9 - Hematuria, unspecified Farzana Tierney Dec 18, 2016 12:00
[2016-12-18] MEDS ORDERED: PANT40TA3 PO (12:23)
[2016-12-18] MEDS ORDERED: ZOFR4TAB PO (12:25)
[2016-12-18] MEDS ORDERED: DICY20TA10 PO (12:25)
[2016-12-18] MEDS ORDERED: BETH25 PO (12:25)
[2016-12-18] MEDS: PANTOPRAZOLE SODIUM 40 MG VIAL IV PUSH SCH (14:02)
== END 2016-12-18 16:36 | disposition home or self-care (01) | DRG 872 ==
LOC: NEPD 17:12 → NEDA 21:10 → N07B 23:40
PROVIDERS: ADMIT Family Medicine; ATTEND Family Medicine
PROC: 0DB68ZX Excision of Stomach, Via Natural or Artificial Opening Endoscopic, Diagnostic (ICD-10-PCS; 2016-12-12)
PROC: 0DB98ZX Excision of Duodenum, Via Natural or Artificial Opening Endoscopic, Diagnostic (ICD-10-PCS; principal; 2016-12-12 13:08)
DX: R65.11 Systemic inflammatory response syndrome (SIRS) of non-infectious origin with acute organ dysfunction (principal); N17.9 Acute kidney failure, unspecified; K76.0 Fatty (change of) liver, not elsewhere classified; K31.84 Gastroparesis; E83.51 Hypocalcemia; K92.1 Melena; A74.9 Chlamydial infection, unspecified; E87.6 Hypokalemia; R11.2 Nausea with vomiting, unspecified; K29.80 Duodenitis without bleeding; K29.70 Gastritis, unspecified, without bleeding; R19.7 Diarrhea, unspecified; J02.9 Acute pharyngitis, unspecified
CPT/HCPCS: 71010; 74177; 78264; 80048; 80053; 80061; 80074; 80076; 80307; 81001; 82272; 82550; 82552; 83605; 83690; 83735; 85025; 86308; 87040; 87081; 87086; 87491; 87591; 87804; 87880; 88305; 96374; 96375; A9541; C9113; J0330; J0610; J1200; J1650; J1885; J2270; J2370; J2405; J2543; J2550; J2765; J3010; J3370; J3480; J7030; J7040; J7050; Q9967